=== PATIENT | male | born 1970 | race Caucasian/White ===

== ENCOUNTER 2018-01-05 09:15 | Emergency (ER) | payer OTHER ==
[~2018-01-05] VITALS: Ht 175.3 cm; Wt 85.7 kg
[~2018-01-05 09:15] MED LIST: ATIVAN1 MG PO; FLUOXETINE HCL20 M1 PO; GABAPENTIN100 MG PO; HYDROCODON-ACE1 EA14 PO; HYDROCODON-ACE1 EAC8 PO; IBUPROFEN800 MG PO; KLONOPIN2 MG PO; LORAZEPAM1 MG PO; MINIPRESS1 MG PO; MINIPRESS2 MG PO; NORCO 5-325 TA1 EACH PO; OMEPRAZOLE20 MG PO; PRILOSEC20 MG; TRAZODONE HCL50 MG PO; VICODIN 5-5001 EACH PO; ZYPREXA15 MG PO
[2018-01-05] MEDS ORDERED: LISINOPRIL10 MG PO (09:31)
[2018-01-05] MEDS ORDERED: NORCO 5-325 TA1 EACH PO (11:03)
== END 2018-01-05 11:27 | disposition home or self-care (01) ==
LOC: ED 09:15
DX: R11.2 Nausea with vomiting, unspecified (principal); E86.0 Dehydration; F11.23 Opioid dependence with withdrawal; I10 Essential (primary) hypertension; Z88.8 Allergy status to other drugs, medicaments and biological substances; Z88.0 Allergy status to penicillin; Z79.899 Other long term (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 therapy
CPT/HCPCS: 80053; 81001; 83605; 83690; 85025; 96361; 96374; 96375; 99284; J2405; J2550; J7030

== ENCOUNTER 2018-03-26 22:30 | Emergency (ER) | payer OTHER ==
[~2018-03-26] VITALS: Ht 175.3 cm; Wt 85.7 kg
--- OUTSIDE RECORDS SUMMARY | ~2018-03-26 | XMS | Clinical Summary ---
Demographics + + + | Address | [address] | | | [place] [address] | + + + | Preferred Language | Unknown | + + + | Marital Status | | + + + | Mosque Affiliation | Unknown | + + + | Race | Unknown | + + + | Ethnic Group | Unknown | + + + Author + + + | Author | [facility] | + + + | Organization | [facility] | + + + | Address | Unknown | + + + | Phone | Unavailable | + + + Support + + + + + | Name | Relationship | Address | Phone | + + + + + | Tomasa Browne | ECON | [address] | | | | [place], [place] | | | | | [address] | | + + + + + Care Team Providers + +------+ + | Care Lottery Clerk Name | Role | Phone | + +------+ + | Georgette Camp PA-C | PP | | + +------+ + Allergies + + + + + + | Active Allergy | Reactions | Severity | Noted | Comments | | | | | Date | | + + + + + + | Penicillins | Rash | Medium | 06/30/20 | | | | | | 14 | | + + + + + + Current Medications + + +--------+---------+------+------+-------+ | Prescription | Sig. | Disp. | Refills | Star | End | Statu | | | | | | t | Date | s | | | | | | Date | | | + + +--------+---------+------+------+-------+ | LORazepam (ATIVAN) | Take 0.5 tablets by | 12 | 0 | 12/3 | | Activ | | 1 MG tablet | mouth every 8 | tablet | | 1/20 | | e | | | (eight) hours as | | | 14 | | | | | needed for Anxiety. | | | | | | + + +--------+---------+------+------+-------+ Active Problems Not on file Social History + +-------+ +--------+------+ | Tobacco Use | Types | Packs/Day | Years | Date | | | | | Used | | + +-------+ +--------+------+ | Never Smoker | | | | | + +-------+ +--------+------+ + +---+---+---+ | Smokeless Tobacco: | | | | | Never Used | | | | + +---+---+---+ + + +---------+ + | Alcohol Use | Drinks/We | oz/Week | Comments | | | ek | | | + + +---------+ + | No | | | | + + +---------+ + + + + | Sex Assigned at | Date Recorded | | | | + + + | Not on file | | + + + Last Filed Vital Signs + + + + | Vital Sign | Reading | Time Taken | + + + + | Blood Pressure | 135/88 | 06/30/2014 7:02 PM PST | + + + + | Pulse | 70 | 06/30/2014 7:02 PM PST | + + + + | Temperature | 36.4 C (97.6 F) | 06/30/2014 7:02 PM PST | + + + + | Respiratory Rate | 18 | 06/30/2014 7:02 PM PST | + + + + | Oxygen Saturation | 100% | 06/30/2014 7:02 PM PST | + + + + | Inhaled Oxygen | - | - | | Concentration | | | + + + + | Weight | 86.2 kg (190 lb) | 06/30/2014 4:37 PM PST | + + + + | Height | 177.8 cm (5' 10") | 10/13/2009 2:06 PM PDT | + + + + | Body Mass Index | 27.26 | 06/30/2014 4:37 PM PST | + + + + Plan of Treatment Not on file Results Not on filefrom Last 3 Months Insurance +---------+--------+ +------+-------+---------+ | Payer | Benefi | Subscriber | Type | Phone | Address | | | t Plan | ID | | | | | | / | | | | | | | Group | | | | | +---------+--------+ +------+-------+---------+ | [place] | BLUE | [id number] | | | | | | CROSS | 3 | | | | | | BLUE | | | | | | | SHIELD | | | | | | | FEP | | | | | +---------+--------+ +------+-------+---------+ + +--------+ +--------+-------+ + | Guarantor Name | Accoun | Relation to | Date | Phone | Billing Address | | | t Type | Patient | of | | | | | | | | | | + +--------+ +--------+-------+ + | MARIE BROWNE | Person | Self | [birth year] | [address] | | | al/Fam | | 1971 | | [place] | | | [place] | | | | [phone] | + +--------+ +--------+-------+ +
--- OUTSIDE RECORDS SUMMARY | ~2018-03-26 | XMS | Clinical Summary ---
Demographics + + + | Address | [address] | | | [place] [address] | + + + | Home Phone | | + + + | Preferred Language | Unknown | + + + | Marital Status | | + + + | Presybeterian Affiliation | Unknown | + + + | Race | Unknown | + + + | Ethnic Group | Unknown | + + + Author + + + | Author | [facility] | | | and [place] | + + + | Organization | [facility] | | | and [place] [...] Team Providers + +------+ + | Care Life Skills Coordinator Volunteer Name | Role | Phone | + [...] | | | + + +--------+---------+------+------+-------+ | | Take 1 tablet by | | | | | Activ | | HYDROcodone-acetamin | mouth every 6 hours | | | | | e | | ophen (NORCO) 5-325 | as needed. | | | | | | | mg per tablet | | | | | | | + + +--------+---------+------+------+-------+ | GuaiFENesin | Take by mouth. | | | | | Activ | | (MUCINEX CHEST | | | | | | e | | CONGESTION CHILD PO) | | | | | | | + + +--------+---------+------+------+-------+ | fluticasone | 1 spray by Nasal | 16 g | 0 | 10/1 | | Activ | | (FLONASE) 50 | route 2 times daily. | | | 1/20 | | e | | mcg/nasal spray | | | | 15 | | | + + +--------+---------+------+------+-------+ Active Problems + + + | Problem [...] + | Blood Pressure | 130/90 | 04/10/20151221 PDT | + + + [...] Height | 177.8 cm (5' 10") | 04/10/20151221 PDT | + + + + | Body Mass Index | 31.42 | 04/10/20151221 PDT | + + + + Plan [...] Vaccine: Influenza | | | | | (#1) | 8 | | | + + + + + Results Not on filefrom Last 3 Months Insurance + +--------+ +--------+ +---------+ | Payer | Benefi | Subscriber | Type | Phone | Address | | | t Plan | ID | | | | | | / | | | | | | | Group | | | | | + +--------+ +--------+ +---------+ | [employer] | MODA | [id number] | Medica | [phone] | | MEDICAID HMO | HEALTH | | id | [id number] | | | | [place] | | | | | | | [place] | | | | | + +--------+ +--------+ +---------+ + +--------+ +--------+ + + | Guarantor Name | Accoun | Relation to | Date | Phone | Billing Address | | | t Type | Patient | of | | | | | | | | | | + +--------+ +--------+ + + | MARIE BROWNE | Person | Self | [birth year] | Home: | [address] | | | al/Fam | | 1971 | [phone] | [place] [address] | | | [place] | | | [phone] | | + +--------+ +--------+ + +
--- OUTSIDE RECORDS SUMMARY | ~2018-03-26 | XMS | Clinical Summary ---
Demographics + + + | Address | [address] | | | [place] [address] | + + + | Home Phone | | + + + | Preferred Language | Unknown | + + + | Marital Status | | + + + | Latter Day Affiliation | CHR | + + + [...] [place], [place] | | | | | [address] | | + + + + + Care Team Providers + +------+ + | Care Core Machine Operator Name | Role | Phone | + +------+ + | Jass Park DO | PP | | + +------+ + Source Comments DEISY is fully live on both [facility] Ambulatory and [facility] InPatient.[facility] Allergies No Known Allergies Current Medications + [...] | + + + + + | INFLUENZA VACCINE | | | | | (FLU SHOT) | 8 | | | + + [...] | PPO | +- | [address] [address] [place] | | SHIELD | OUT OF | x | | [address] | [place], [place] | | | [place] | | | | [address] | + +--------+ +------+ + + + [...] | | al/Fam | | 1971 | [phone] | [place] | | | [place] | | | [phone] | [phone] | + +--------+ +--------+ + +
--- OUTSIDE RECORDS SUMMARY | ~2018-03-26 | XMS | Clinical Summary ---
Demographics + + + | Address | [address] | | | [place] [address] | + + + | Home Phone | | + + + | Preferred Language | Unknown | + + + | Marital Status | | + + + | Methodist Affiliation | CHR | + + + [...] [place], [place] | | | | | [address] | | + + + + + Care Team Providers + +------+ + | Care Director Student Union Name | Role | Phone | + +------+ + | Jass Park DO | PP | | + +------+ + Source Comments DEISY is fully live on both [facility] and [facility] InPatient.[facility] Allergies No Known Allergies Current Medications + [...] | PPO | +- | [address] [address] [place] | | SHIELD | OUT OF | x | | [address] | [place], [place] | | | STATE | | | | [address] | + +--------+ +------+ + + + [...] | [place] | | | [phone] | [phone] | + +--------+ +--------+ + +
--- OUTSIDE RECORDS SUMMARY | ~2018-03-26 | XMS | Clinical Summary ---
Demographics + + + | Address | [address] | | | [place] [address] | + + + | Home Phone [...] Organization | [facility] | | | and [...] Team Providers + +------+ + | Care Tonnage Compilation Clerk Name | Role | Phone | [...] | [employer] | MODA | [id number] | Medica | [phone] | | | MEDICAID HMO | HEALTH [...] | 1971 | [phone] | [place] [address] | | | [place] | | | [phone] | | + +--------+ +--------+ + +
--- OUTSIDE RECORDS SUMMARY | ~2018-03-26 | XMS | Clinical Summary ---
Demographics + + + | Address | [address] | | | [place] [address] | + + + | Preferred Language | Unknown | + + + | Marital Status | | + + + | Confucianist Affiliation | Unknown | + + + | Race | Unknown | + + + | Ethnic Group | Unknown | + + + Author + + + | Author | [facility] | + + + | Organization | [facility] | + + + | Address | Unknown | + + + | Phone | Unavailable | + + + Support + + + + + | Name | Relationship | Address | Phone | + + + + + | Tomasa Browne | ECON | [address] | | | | [address], [place] | | | | | [address] | | + + + + + Care Team Providers + +------+ + | Care Lens Grinder And Polisher Name | Role | Phone | + [...] +---------+--------+ +------+-------+---------+ | [place] | BLUE | [id number] | | | | | | CROSS [...] | | [place] | | | | [phone] | + +--------+ +--------+-------+ +
[~2018-03-26 22:30] MED LIST changes: +CATAPRES0.1 MG PO; +LISINOPRIL10 MG PO
[2018-03-26] MEDS ORDERED: OXYCODONE-ACET1 EAC3 (22:45)
[2018-03-26] MEDS ORDERED: WELLBUTRIN XL300 MG PO (22:46)
== END 2018-03-27 00:13 | disposition home or self-care (01) ==
LOC: ED 22:30
DX: M54.5 Low back pain (principal); I10 Essential (primary) hypertension; F41.9 Anxiety disorder, unspecified; F17.200 Nicotine dependence, unspecified, uncomplicated; Z88.8 Allergy status to other drugs, medicaments and biological substances; Z88.0 Allergy status to penicillin; Z79.899 Other long term (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 therapy
CPT/HCPCS: 81001; 96372; 99283; J1885

== ENCOUNTER 2018-10-07 18:55 | Emergency (ER) | payer OTHER ==
[~2018-10-07] VITALS: Ht 177.8 cm; Wt 90.7 kg
[~2018-10-07 18:55] MED LIST changes: +OXYCODONE-ACET1 EAC3; +WELLBUTRIN XL300 MG PO
--- OUTSIDE RECORDS SUMMARY | 2018-10-07 18:58 | XMS ---
PreMana Notification: CECILIO CROSS Security Line Therapist Events No recent Security Events currently on file [place]IA MET [place] [facility] DEANDRE MCCRARY [facility] 02/03/2018-Current PHONE: [phone] [facility]: Health Service 07/21/2018-Current PHONE: [phone] [facility] Internal Medicine 09/24/2018-[facility] - [place] PHONE: [phone] [facility] Care 09/24/2018-[facility] - [place] PHONE: [phone] [facility] Care 07/21/2018-Current PHONE: [phone] Jasmine has no Care Guidelines for this patient. Care History Medical/Surgical 04/18/2018 [facility] - PATIENT CURRENTLY ON A PAIN CONTRACT WITH DR HERMANN MICHAELS. - PATIENT HAS CHRONIC NECK PAIN. - PATIENT RECENTLY TESTES POSITIVE FOR METHAMPHETAMINE USAGE. Care Recommendation: - USE EXTREME CAUTION IN GIVING NARCOTICS TO THIS PATIENT. - Avoid Discharge Narcotic prescriptions if at all possible. Please use clinical judgement. E.D. VISIT COUNT (12 MO.) [address] [place] [address]. TOTAL 5 NOTE: Visits indicate total known visits. ED/UCC VISIT TRACKING (12 MO.) 10/07/2018 18:55 [facility] [place] TYPE: Emergency COMPLAINT: - MEDICAL CLEARANCE 04/17/2018 09:27 [facility] [place] TYPE: Emergency COMPLAINT: - HEADACHE DIAGNOSES: - Other salvage determiner (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 therapy - Allergy status to penicillin - Allergy status to other drugs, medicaments and biological substances status - Headache - Essential (primary) hypertension - Nicotine dependence, unspecified, uncomplicated 03/26/2018 22:31 [facility] [place] TYPE: Emergency COMPLAINT: - LOW BACK PAIN,L LEG PAIN DIAGNOSES: - Nicotine dependence, unspecified, uncomplicated - Allergy status to other drugs, medicaments and biological substances status - Low back pain - Anxiety disorder, unspecified - Other intermediate (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 therapy - Allergy status to penicillin - Essential (primary) hypertension 01/31/2018 23:16 [facility] [place] TYPE: Emergency COMPLAINT: - POSS POSIONING DIAGNOSES: - Allergy status to penicillin - Essential (primary) hypertension - Allergy status to other drugs, medicaments and biological substances status - Other intermediate (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 therapy - Anxiety disorder, unspecified - Anxiety disorder, unspecified - Nicotine dependence, unspecified, uncomplicated - Encounter for observation for other suspected diseases and conditions ruled out 01/05/2018 09:16 [facility] [place] TYPE: Emergency COMPLAINT: - VOMITING DIAGNOSES: - Allergy status to penicillin - Allergy status to other drugs, medicaments and biological substances status - Opioid dependence with withdrawal - Essential (primary) hypertension - Other intermediate (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 therapy - Nausea with vomiting, unspecified - Dehydration INPATIENT VISIT TRACKING (12 MO.) No inpatient visits to display in this time frame [email or web address]
== END 2018-10-07 19:15 | disposition left against medical advice (07) ==
LOC: ED 18:55
DX: Z53.21 Procedure and treatment not carried out due to patient leaving prior to being seen by health care provider (principal)

== ENCOUNTER 2018-10-09 19:03 | Emergency (ER) | payer MEDICAID ==
[~2018-10-09] VITALS: Ht 177.8 cm; Wt 90.7 kg
--- OUTSIDE RECORDS SUMMARY | 2018-10-09 19:06 | XMS ---
PreManage Notification: CECILIO CROSS Security Radio Frequency Engineer Events 1 event(s) in the past 18 months Most recent security events: Elopement at [facility] 10/07/2018 18:55 - Other Details: PATIENT MARIUSZ- HAWA CREATED. CRITERIA MET - Group Notification - [facility] - Has Care Guidelines - PDMP - [facility] - 2 Visits in 30 Days CARE PROVIDERS DEANDRE MCCRARY [facility] 02/03/2018-Current PHONE: [phone] [facility]: Health Service 07/21/2018-Current PHONE: [phone] [facility] BALSAM Internal [facility] 09/24/2018-[facility] - PHONE: [phone] [facility] Primary Care 09/24/2018-[facility] - [place] PHONE: [phone] [facility] Primary Care 07/21/2018-Current PHONE: [phone] Jasmine has no Care Guidelines for this patient. Care History Medical/Surgical 10/08/2018 [facility] - [place] CASE MANAGEMENT REFERRAL MADE- PATIENT LWBS IN THE ED- DOES NOT HAVE A PCP. 04/18/2018 [facility] - PATIENT CURRENTLY ON A PAIN CONTRACT WITH DR HERMANN MICHAELS. - PATIENT HAS CHRONIC NECK PAIN. - PATIENT RECENTLY TESTES POSITIVE FOR METHAMPHETAMINE USAGE. Care Recommendation: - USE EXTREME CAUTION IN GIVING NARCOTICS TO THIS PATIENT. - Avoid Discharge Narcotic prescriptions if at all possible. Please use clinical judgement. E.D. VISIT COUNT (12 MO.) 6 [facility] TOTAL 6 NOTE: Visits indicate total known visits. ED/UCC VISIT TRACKING (12 MO.) 10/09/2018 19:03 [facility] [place] TYPE: Emergency COMPLAINT: - MEDICAL CLERANCE 10/07/2018 18:55 [facility] [place] TYPE: Emergency COMPLAINT: - MEDICAL CLEARANCE 04/17/2018 09:27 [facility] [place] TYPE: Emergency COMPLAINT: - HEADACHE DIAGNOSES: - Other intermediate card tender (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 therapy - Allergy status to [...] - Anxiety disorder, unspecified - Other intermediate card tender (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 therapy - Allergy status to penicillin - Essential (primary) hypertension 01/31/2018 23:16 [facility] [place] TYPE: Emergency COMPLAINT: - POSS POSIONING DIAGNOSES: - Allergy status to penicillin - Essential (primary) hypertension - Allergy status to other drugs, medicaments and biological substances status - Other intermediate card tender (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 therapy - Anxiety disorder, unspecified [...] - Essential (primary) hypertension - Other intermediate card tender (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 therapy - Nausea with vomiting, unspecified - Dehydration INPATIENT VISIT TRACKING (12 MO.) No inpatient visits to display in this time frame [id number]
== END 2018-10-09 21:43 | disposition home or self-care (01) ==
LOC: ED 19:03
DX: Z13.30 Encounter for screening examination for mental health and behavioral disorders, unspecified (principal); I10 Essential (primary) hypertension; F41.9 Anxiety disorder, unspecified; F17.200 Nicotine dependence, unspecified, uncomplicated; Z87.442 Personal history of urinary calculi; Z88.0 Allergy status to penicillin; Z88.8 Allergy status to other drugs, medicaments and biological substances; Z79.899 Other long term (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 therapy
CPT/HCPCS: 80053; 80176; 81001; 85025; 99284; G0480

== ENCOUNTER 2018-10-13 06:24 | Emergency (ER) | payer MEDICAID ==
[~2018-10-13] VITALS: Ht 177.8 cm; Wt 90.7 kg
--- OUTSIDE RECORDS SUMMARY | ~2018-10-13 | XMS | Clinical Summary ---
Demographics + + + | Address | [address] | | | [place] [address] | + + + | Home Phone | | + + + | Preferred Language | Unknown | + + + | Marital Status | | + + + | Latter-Day Affiliation | Unknown | + + + | Race | Unknown | + + + | Ethnic Group | Unknown | + + + Author + + + | Author | [facility] | | | and [place] | + + + | Organization | [facility] | | | and [place] | + + + | Address | Unknown | + + + | Phone | Unavailable | + + + Support + + +---------+ + | Name | Relationship | Address | Phone | + + +---------+ + | Reyna Esteban | ECON | Unknown | | + + +---------+ + Care Team Providers + +------+ + | Care Outreach Nurse Name | Role | Phone | + +------+ + | No, Physician | PP | Unavailable | + +------+ + Allergies + + + + + + | Active Allergy | Reactions | Severity | Noted | Comments | | | | | Date | | + + + + + + | Penicillins | | | 04/10/20 | | | | | | 15 | | + + + + + + Medications + + + +---------+------+------+-------+ | Medication | Sig | Dispensed | Refills | Star | End | Statu | | | | | | t | Date | s | | | | | | Date | | | + + + +---------+------+------+-------+ | | Take 1 tablet by | | 0 | | | Activ | | HYDROcodone-acetamin | mouth every 6 hours | | | | | e | | ophen (NORCO) 5-325 | as needed. | | | | | | | mg per tablet | | | | | | | + + + +---------+------+------+-------+ | GuaiFENesin | Take by mouth. | | 0 | | | Activ | | (MUCINEX CHEST | | | | | | e | | CONGESTION CHILD PO) | | | | | | | + + + +---------+------+------+-------+ | fluticasone | 1 spray by Nasal | 16 g | 0 | 10/1 | | Activ | | (FLONASE) 50 | route 2 times daily. | | | 1/20 | | e | | mcg/nasal spray | | | | 15 | | | + + + +---------+------+------+-------+ Active Problems + + + | Problem | Noted Date | + + + | NECK PAIN | | + + + | SHOULDER PAIN | | + + + | CERVICAL RADICULOPATHY | | + + + Social History + +-------+ +--------+------+ | Tobacco Use | Types | Packs/Day | Years | Date | | | | | Used | | + +-------+ +--------+------+ | Never Smoker | | | 5 | | + +-------+ +--------+------+ + +------+---+---+ | Smokeless Tobacco: | Chew | | | | Current User | | | | + +------+---+---+ + + +---------+ + | Alcohol Use | Drinks/We | oz/Week | Comments | | | ek | | | + + +---------+ + | Yes | 0 | 0.0 | occ | | | Standard | | | | | drinks or | | | | | | | | | | equivalen | | | | | t | | | + + +---------+ + + + + | Sex Assigned at | Date Recorded | | | | + + + | Not on file | | + + + + + + + | Job Start Date | Occupation | Industry | + + + + | Not on file | Not on file | Not on file | + + + + + + + + | Travel History | Travel Start | Travel End | + + + + + + | No recent travel history available. | + + Last Filed Vital Signs + + + + | Vital Sign | Reading | Time Taken | + + + + | Blood Pressure | 130/90 | 04/10/2015 1222 PDT | + + + + | Pulse | 58 | 04/10/20151221 PDT | + + + + | Temperature | 36.3 C (97.3 F) | 04/10/20151221 PDT | + + + + | Respiratory Rate | 20 | 04/10/20151221 PDT | + + + + | Oxygen Saturation | 100% | 04/10/20151221 PDT | + + + + | Inhaled Oxygen | - | - | | Concentration | | | + + + + | Weight | 99.3 kg (219 lb) | 04/10/20151221 PDT | + + + + | Height | 177.8 cm (5' 10") | 04/10/2015 1222 PDT | + + + + | Body Mass Index | 31.42 | 04/10/20152 PDT | + + + + Plan of Treatment + + + + + | Health Maintenance | Due Date | Last Done | Comments | + + + + + | Vaccine: | | | | | Dtap/Tdap/Td (1 - | 9 | | | | Tdap) | | | | + + + + + | Vaccine: Influenza | | | | | (Season Ended) | 9 | | | + + + + + Results Not on filefrom Last 3 Months Insurance + +--------+ +--------+ +---------+--------+ | Payer | Benefi | Subscriber | Effect | Phone | Address | Type | | | t Plan | ID | [place] | | | | | | / | | Dates | | | | | | Group | | | | | | + +--------+ +--------+ +---------+--------+ | [employer] | MODA | [id number] | 04/10/ | [phone] | | Medica | | MEDICAID HMO | HEALTH | | 2015-P | 1 | | id | | | MDCD | | [place] | | | | | | [place] | | | | | | + +--------+ +--------+ +---------+--------+ + +--------+ +--------+ + + | Guarantor Name | Accoun | Relation to | Date | Phone | Billing Address | | | t Type | Patient | of | | | | | | | | | | + +--------+ +--------+ + + | Marie Browne | Person | Self | [birth year] | [address] | | | kris/Lei | | 1971 | [phone] | [place] [address] | | | [place] | | | 7 (Home) | | + +--------+ +--------+ + + Advance Directives Patient has advance care planning documents on file. For more information, please contact:[facility] [place] [address]
--- OUTSIDE RECORDS SUMMARY | ~2018-10-13 | XMS | Clinical Summary ---
Demographics + + + | Address | [address] [place] [address] | | | [place] [address] | + + + | Home Phone | | + + + | Preferred Language | Unknown | + + + | Marital Status | | + + + | Religion Affiliation | CHR | + + + | Race | White | + + + | Ethnic Group | Not or | + + + Author + + + | Author | [facility] | + + + | Organization | [facility] | + + + | Address | Unknown | + + + | Phone | Unavailable | + + + Support + + + + + | Name | Relationship | Address | Phone | + + + + + | NAOMI BROWNE | ECON | [address] | | | | [address], [place] | | | | | [address] | | + + + + + Care Team Providers + +------+ + | Care Purchasing Director Name | Role | Phone | + +------+ + | Jass Park DO | PP | | + +------+ + Source Comments DEISY is fully live on both [facility] and [facility] InPatient.[facility] Allergies No Known Allergies Current Medications + + + +---------+------+------+-------+ | Prescription | Sig. | Disp. | Refills | Star | End | Statu | | | | | | t | Date | s | | | | | | Date | | | + + + +---------+------+------+-------+ | HYDROCODONE | Take by mouth as | | | 02/0 | | Activ | | BIT/ACETAMINOPHEN | needed. | | | 3/20 | | e | | (VICODIN ORAL) | | | | 11 | | | + + + +---------+------+------+-------+ | ibuprofen 800 mg | Take 800 mg by mouth | | | | | Activ | | Oral Tablet | every six hours as | | | | | e | | | needed. | | | | | | + + + +---------+------+------+-------+ | celecoxib | Take by mouth. By | 12 Cap | 0 | 03/2 | | Activ | | (CELEBREX) 400 mg | mouth, take one | | | 8/20 | | e | | Oral | capsule the night | | | 11 | | | | CapsuleIndications: | before surgery and | | | | | | | Other specified | one the morning of | | | | | | | pre-operative | surgery. Thereafter | | | | | | | examination | take one capsule | | | | | | | | twice daily. | | | | | | + + + +---------+------+------+-------+ | CALCIUM CARBONATE | Take by mouth. | | | | | Activ | | (TUMS 500 ORAL) | | | | | | e | + + + +---------+------+------+-------+ | oxyCODONE, | Take by mouth. Take | 60 Tab | 0 | 05/1 | | Activ | | immediate release, 5 | one to two tablets | | | 8/20 | | e | | mg Oral | by mouth every 4-6 | | | 11 | | | | TabletIndications: | hours for pain when | | | | | | | Other specified | needed. | | | | | | | pre-operative | | | | | | | | examination | | | | | | | + + + +---------+------+------+-------+ Active Problems + + + | Problem | Noted Date | + + + | Carpal tunnel syndrome | 10/16/2010 | + + + | Shoulder pain | 09/25/2010 | + + + Social History + [...] + +---------+ + | Yes | | 0.0 | rare use | + + +---------+ + + + + | Sex Assigned at | Date Recorded | | | | + + + | Not on file | | + + + Last Filed Vital Signs + + + + | Vital Sign | Reading | Time Taken | + + + + | Blood Pressure | 108/81 | 10/05/2010 2:15 PM PDT | + + + + | Pulse | 65 | 10/05/2010 2:15 PM PDT | + + + + | Temperature | 36.4 C (97.5 F) | 10/05/2010 12:30 PM PDT | + + + + | Respiratory Rate | 14 | 10/05/2010 2:15 PM PDT | + + + + | Oxygen Saturation | 96% | 10/05/2010 2:15 PM PDT | + + + + | Inhaled Oxygen | - | - | | Concentration | | | + + + + | Weight | 81.6 kg (180 lb) | 10/05/2010 7:43 AM PDT | + + + + | Height | 175.3 cm (5' 9") | 10/05/2010 7:43 AM PDT | + + + + | Body Mass Index | 26.58 | 10/05/2010 7:43 AM PDT | + + + + Plan of Treatment + + + + + | Health Maintenance | Due Date | Last Done | Comments | + + + + + | Influenza (Flu) | | | | | vaccination (#1) | 8 | | | + + + + + Results Not on filefrom Last 3 Months Insurance + +--------+ +------+ + + | Payer | Benefi | Subscriber | Type | Phone | Address | | | t Plan | ID | | | | | | / | | | | | | | Group | | | | | + +--------+ +------+ + + | BLUE CROSS BLUE | BCBS | [id number] | PPO | +- | [address] [address] [place] | | SHIELD | OUT OF | x | | [phone] | [place], [place] | | | [place] | | | | [address] | + +--------+ +------+ + + + +--------+ +--------+ + + | Guarantor Name | Accoun | Relation to | Date | Phone | Billing Address | | | t Type | Patient | of | | | | | | | | | | + +--------+ +--------+ + + | MARIE BROWNE | Person | Self | [birth year] | Home: | [address] | | | al/Fam | | 1971 | [phone] | [place], [place] | | | nicole | | | [phone] | + +--------+ +--------+ + +
--- OUTSIDE RECORDS SUMMARY | ~2018-10-13 | XMS | Clinical Summary ---
Demographics + + + | Address | [address] | | | [place] [address] | + + + | Preferred Language [...] | + + + | Organization | [facility] | + + + | Address | Unknown | + + + | Phone | Unavailable | + + + Support + + + + + | Name | Relationship | Address | Phone | + + + + + | Tomasa Browne | ECON | [address] | | | | [address], [place] | | | | | [address] | | + + + + + Care Team Providers + +------+ + | Care Executive Director Of Nursing Name | Role | Phone | + [...] +---------+--------+ +------+-------+---------+ | [place] | BLUE | [id number] | | | | | | CROSS [...] | | [place] | | | | [phone] | + +--------+ +--------+-------+ +
--- OUTSIDE RECORDS SUMMARY | ~2018-10-13 | XMS | Clinical Summary ---
Demographics + + + | Address | [address] | | | [place] [address] | + + + | Preferred Language | Unknown | + + + | Marital Status | | + + + | Adventist Affiliation | Unknown | + + + | Race | Unknown | + + + | Ethnic Group | Unknown | + + + Author + + + | Author | [facility] | + + + | Organization | [facility] | + + + | Address | Unknown | + + + | Phone | Unavailable | + + + Support + + + + + | Name | Relationship | Address | Phone | + + + + + | Tomasa Browne | ECON | [address] | | | | [address], [place] | | | | | [address] | | + + + + + Care Team Providers + +------+ + | Care Sales And Leasing Consultant Name | Role | Phone | + [...] +---------+--------+ +------+-------+---------+ | [place] | BLUE | [id number] | | | | | | CROSS [...] | | [place] | | | | [phone] | + +--------+ +--------+-------+ +
--- OUTSIDE RECORDS SUMMARY | ~2018-10-13 | XMS | Clinical Summary ---
Demographics + + + | Address | [address] | | | [place] [address] | + + + | Home Phone | | + + + | Preferred Language | Unknown | + + + | Marital Status | | + + + | Baptism Affiliation | Unknown | + + + | Race | Unknown | + + + | Ethnic Group | Unknown | + + + Author + + + | Author | [facility] | | | and [place] | + + + | Organization | [facility] | | | and [...] Team Providers + +------+ + | Care Lpn Medical Assistant Name | Role | Phone | + [...] | [employer] | MODA | [id number] | 04/10/ | [phone] | | Medica | | MEDICAID HMO [...] | 1971 | [phone] | [place] [address] | | | [place] | | | 7 (Home) | | + +--------+ +--------+ + + Advance Directives Patient has advance care planning documents on file. For more information, please contact:[facility] and [place] [address]
--- OUTSIDE RECORDS SUMMARY | ~2018-10-13 | XMS | Clinical Summary ---
Demographics + + + | Address | [address] [place] [address] | | | [place] [address] | + + + | Home Phone | | + + + | Preferred Language | Unknown | + + + | Marital Status | | + + + | Voodoo Affiliation | CHR | + + + [...] [place], [place] | | | | | [address] | | + + + + + Care Team Providers + +------+ + | Care Front Desk Name | Role | Phone | + +------+ + | Jass Park DO | PP | | + +------+ + Source Comments DEISY is fully live on both [facility] Ambulatory and [facility] InPatient.[facility] Allergies No Known Allergies Current [...] | PPO | +- | [address] [address] [place] | | SHIELD | OUT OF | x | | [phone] | [place], [place] | | | STATE | | | | [address] | + +--------+ +------+ + + + [...] al/Fam | | 1971 | [phone] | [place], [place] | | | nicole | | | [phone] | + +--------+ +--------+ + +
--- OUTSIDE RECORDS SUMMARY | 2018-10-13 06:28 | XMS ---
PreManage Notification: CECILIO CROSS Security Welt Insole Channeler Events 1 event(s) in the past 18 months Most recent security events: Elopement at [facility] 10/07/2018 18:55 - Other Details: PATIENT MARIUSZ- HAWA CREATED. CRITERIA MET - Group Notification - [facility] - Has Care Guidelines - PDMP - [facility] - 2 Visits in 30 Days CARE PROVIDERS DEANDRE MCCRARY [facility] 02/03/2018-Current PHONE: [phone] [facility]: Health Service 07/21/2018-Current PHONE: [phone] K[facility]E RIVIERA Internal [facility] 09/24/2018-[facility] - PHONE: [phone] [facility] Primary Care 09/24/2018-[facility] - [place] PHONE: [phone] [facility] Primary Care 07/21/2018-Current PHONE: [phone] Jasmine has no Care Guidelines for this patient. Care History Medical/Surgical 10/08/2018 [facility] - [place] CASE MANAGEMENT REFERRAL MADE- PATIENT LWBS IN THE ED- DOES NOT HAVE A PCP. 04/18/2018 [facility] - PATIENT CURRENTLY ON A PAIN CONTRACT WITH DR HERMANN MICHAELS. - PATIENT HAS CHRONIC NECK PAIN. - PATIENT RECENTLY TESTES POSITIVE FOR METHAMPHETAMINE USAGE. Care Recommendation: - USE EXTREME CAUTION IN GIVING NARCOTICS TO THIS PATIENT. - Avoid Discharge Narcotic prescriptions if at all possible. Please use clinical judgement. E.D. VISIT COUNT (12 MO.) [address] [facility] TOTAL 7 NOTE: Visits indicate total known visits. ED/UCC VISIT TRACKING (12 MO.) 10/13/2018 06:25 [facility] [place] TYPE: Emergency COMPLAINT: - DENTAL PAIN 10/09/2018 19:03 [facility] [place] TYPE: Emergency COMPLAINT: - MEDICAL CLERANCE DIAGNOSES: - Anxiety disorder, unspecified - Nicotine dependence, unspecified, uncomplicated - Major depressive disorder, single episode, unspecified - Allergy status to other drugs, medicaments and biological substances status - Essential (primary) hypertension - Allergy status to penicillin - ENCNTR SCREEN EXAM FOR MENTAL HLTH AND BEHAVRL DIS - Other final application reviewer (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 therapy - Personal history of urinary calculi 10/07/2018 18:55 [facility] [place] TYPE: Emergency COMPLAINT: - MEDICAL CLEARANCE DIAGNOSES: - Procedure and treatment not carried out due to patient leaving prior to being seen by health care provider 04/17/2018 09:27 [facility] [place] TYPE: Emergency COMPLAINT: - HEADACHE DIAGNOSES: - Other final application reviewer (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 therapy - Allergy status to [...] pain - Anxiety disorder, unspecified - Other final application reviewer (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 therapy - Allergy status to penicillin - Essential (primary) hypertension 01/31/2018 23:16 [facility] [place] TYPE: Emergency COMPLAINT: - POSS POSIONING DIAGNOSES: - Allergy status to penicillin - Essential (primary) hypertension - Allergy status to other drugs, medicaments and biological substances status - Other half-way (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 therapy - Anxiety disorder, unspecified [...] withdrawal - Essential (primary) hypertension - Other final application reviewer (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 therapy - Nausea with vomiting, unspecified - Dehydration INPATIENT VISIT TRACKING (12 MO.) No inpatient visits to display in this time frame [id number]
[2018-10-13] MEDS ORDERED: CEPHALEXIN500 MG PO (06:52)
[2018-10-13] MEDS ORDERED: AMOXICILLIN500 MG PO (20:17)
[2018-10-13] MEDS ORDERED: TRAMADOL HCL50 MG PO (20:17)
== END 2018-10-13 06:57 | disposition home or self-care (01) ==
LOC: ED 06:24
DX: K08.89 Other specified disorders of teeth and supporting structures (principal); I10 Essential (primary) hypertension; F17.200 Nicotine dependence, unspecified, uncomplicated; Z88.0 Allergy status to penicillin; Z88.8 Allergy status to other drugs, medicaments and biological substances; Z79.899 Other long term (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 therapy
CPT/HCPCS: 99282

== ENCOUNTER 2018-10-13 19:40 | Emergency (ER) | payer MEDICAID ==
[~2018-10-13] VITALS: Ht 177.8 cm; Wt 90.7 kg
--- OUTSIDE RECORDS SUMMARY | ~2018-10-13 | XMS | Clinical Summary ---
Demographics + + + | Address | [address] | | | [place] [address] | + + + | Preferred Language | Unknown | + + + | Marital Status | | + + + | Hindu Affiliation | Unknown | + + + | Race | Unknown | + + + | Ethnic Group | Unknown | + + + Author + + + | Author | [facility] | + + + | Organization | [facility] | + + + | Address | Unknown | + + + | Phone | Unavailable | + + + Support + + + + + | Name | Relationship | Address | Phone | + + + + + | Tomasa Browne | ECON | [address] | | | | [address], [place] | | | | | [address] | | + + + + + Care Team Providers + +------+ + | Care Overcoil Stepper Name | Role | Phone | + +------+ + | Georgette Camp PA-C | PP | Unavailable | + +------+ + Allergies + + [...] +---------+--------+ +------+-------+---------+ | [place] | BLUE | [id number] | | | | | | CROSS [...] | al/Fam | | 1971 | | [place] | | | nicole | | | | [phone] | + +--------+ +--------+-------+ +
--- OUTSIDE RECORDS SUMMARY | ~2018-10-13 | XMS | Clinical Summary ---
Demographics + + + | Address | [address] | | | [place] [address] | + + + | Preferred Language | Unknown | + + + | Marital Status | | + + + | Denominational Affiliation | Unknown | + + + | Race | Unknown | + + + | Ethnic Group | Unknown | + + + Author + + + | Author | [facility] | + + + | Organization | [facility] | + + + | Address | Unknown | + + + | Phone | Unavailable | + + + Support + + + + + | Name | Relationship | Address | Phone | + + + + + | Tomasa Browne | ECON | [address] | | | | [place], [place] | | | | | [address] | | + + + + + Care Team Providers + +------+ + | Care Correctional Cook Name | Role | Phone | + [...] +---------+--------+ +------+-------+---------+ | [place] | BLUE | [id number] | | | | | | CROSS [...] | | [place] | | | | [phone] | + +--------+ +--------+-------+ +
--- OUTSIDE RECORDS SUMMARY | ~2018-10-13 | XMS | Clinical Summary ---
Demographics + + + | Address | [address] | | | [place] [address] | + + + | Home Phone | | + + + | Preferred Language | Unknown | + + + | Marital Status | | + + + | Zoroastrian Affiliation | Unknown | + + + | Race | Unknown | + + + | Ethnic Group | Unknown | + + + Author + + + | Author | [facility] | | | and [place] | + + + | Organization | [facility] | | | and [place] [...] Team Providers + +------+ + | Care Judicial Law Clerk Name | Role | Phone | [...] | [employer] | MODA | [id number] | 04/10/ | [phone] | | Medica | | MEDICAID HMO [...] | 1971 | [phone] | [place] [address] | | | [place] | | | 7 (Home) | | + +--------+ +--------+ + + Advance Directives Patient has advance care planning documents on file. For more information, please contact:[facility] [place] [address]
--- OUTSIDE RECORDS SUMMARY | ~2018-10-13 | XMS | Clinical Summary ---
Demographics + + + | Address | [address] | | | [place] [address] | + + + | Home Phone | | + + + | Preferred Language | Unknown | + + + | Marital Status | | + + + | Sikhism Affiliation | Unknown | + + + | Race | Unknown | + + + | Ethnic Group | Unknown | + + + Author + + + | Author | [facility] | | | and [place] | + + + | Organization | [facility] | | | and [place] | [...] Team Providers + +------+ + | Care Mattress Stripper Name | Role | Phone | + [...] | [employer] | MODA | [id number] | 04/10/ | [phone] | | Medica | | MEDICAID HMO [...] | 1971 | [phone] | [place] [address] | | | [place] | | | 7 (Home) | | + +--------+ +--------+ + + Advance Directives Patient has advance care planning documents on file. For more information, please contact:[facility] [place] [address]
[~2018-10-13 19:40] MED LIST changes: +CEPHALEXIN500 MG PO
--- OUTSIDE RECORDS SUMMARY | 2018-10-13 19:42 | XMS ---
PreManage Notification: CECILIO CROSS Security Forest Products Gatherer Events 1 event(s) in the past 18 months Most recent security events: Elopement at [facility] 10/07/2018 18:55 - Other Details: PATIENT MEMO SHAIKH CREATED. CRITERIA MET - Group Notification - 6 ED Visits in 6 Months - [facility] - Has Care Guidelines - PDMP - [facility] - 2 Visits in 30 Days CARE PROVIDERS DEANDRE MCCRARY [facility] 02/03/2018-Current PHONE: [phone] [facility]: Health Service 07/21/2018-Current PHONE: [phone] [facility] Internal Medicine 09/24/2018-[facility] - DIVISION PHONE: [phone] BRENT RAMOS Primary [facility] PHONE: Unknown [facility] Primary [facility] PHONE: Unknown [facility] Primary Care 09/24/2018-[facility] - DIVISION PHONE: [phone] [facility] Primary Care 07/21/2018-Current PHONE: [phone] Guidelines Source: Jenna Garcia Guidelines Date: 10/13/2018 Care Coordination: Currently engaged in mental health services with [facility].\T\nbsp; [facility]T\nbsp; [phone]. Care History Medical/Surgical 10/08/2018 [facility] MANAGEMENT REFERRAL MADE- PATIENT LWBS IN THE ED- DOES NOT HAVE A PCP. 04/18/2018 [facility] - PATIENT CURRENTLY ON A PAIN CONTRACT WITH DR HERMANN MICHAELS. - PATIENT HAS CHRONIC NECK PAIN. - PATIENT RECENTLY TESTES POSITIVE FOR METHAMPHETAMINE USAGE. Care Recommendation: - USE EXTREME CAUTION IN GIVING NARCOTICS TO THIS PATIENT. - Avoid Discharge Narcotic prescriptions if at all possible. Please use clinical judgement. E.D. VISIT COUNT (12 MO.) [address] Fabrice Baca TOTAL 9 NOTE: Visits indicate total known visits. ED/UCC VISIT TRACKING (12 MO.) [facility]2018 [facility] COMPLAINT: - POSS MEDICATION REACTION 10/13/2018 13:46 [facility] [place] TYPE: Emergency DIAGNOSES: - Essential (primary) hypertension - Other specified disorders of teeth and supporting structures - TOOTH PAIN 10/13/2018 06:25 [facility] [place] TYPE: Emergency [...] MENTAL HLTH AND BEHAVRL DIS - Other nursing home (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 therapy - Personal history of urinary calculi 10/07/2018 18:55 [facility] [place] TYPE: Emergency COMPLAINT: - MEDICAL CLEARANCE DIAGNOSES: - Procedure and treatment not carried out due to patient leaving prior to being seen by health care provider 04/17/2018 09:27 [facility] [place] TYPE: Emergency COMPLAINT: - HEADACHE DIAGNOSES: - Other nursing home (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 therapy - Allergy status to [...] pain - Anxiety disorder, unspecified - Other nursing home (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 therapy - Allergy status to penicillin - Essential (primary) hypertension 01/31/2018 23:16 [facility] [place] TYPE: Emergency COMPLAINT: - POSS POSIONING DIAGNOSES: - Allergy status to penicillin - Essential (primary) hypertension - Allergy status to other drugs, medicaments and biological substances status - Other internet marketing specialist (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 therapy - Anxiety disorder, unspecified [...] withdrawal - Essential (primary) hypertension - Other nursing home (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 therapy - Nausea with vomiting, unspecified - Dehydration INPATIENT VISIT TRACKING (12 MO.) No inpatient visits to display in this time frame [id number]
[2018-10-13] MEDS ORDERED: AMOXICILLIN500 MG PO (20:17)
[2018-10-13] MEDS ORDERED: TRAMADOL HCL50 MG PO (20:17)
== END 2018-10-13 20:22 | disposition home or self-care (01) ==
LOC: ED 19:40
DX: K08.89 Other specified disorders of teeth and supporting structures (principal); F41.9 Anxiety disorder, unspecified; I10 Essential (primary) hypertension; F17.200 Nicotine dependence, unspecified, uncomplicated; Z88.8 Allergy status to other drugs, medicaments and biological substances; Z79.899 Other long term (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 therapy
CPT/HCPCS: 99282

== ENCOUNTER 2018-11-28 22:29 | Emergency (ER) | payer MEDICAID ==
[~2018-11-28] VITALS: Ht 177.8 cm; Wt 90.7 kg
--- OUTSIDE RECORDS SUMMARY | ~2018-11-28 | XMS | Clinical Summary ---
Demographics + + + | Address | [address] | | | [place] [address] | + + + | Preferred Language | Unknown | + + + | Marital Status | | + + + | Sabianist Affiliation | Unknown | + + + | Race | Unknown | + + + | Ethnic Group | Unknown | + + + Author + + + | Author | [facility] | + + + | Organization | [facility] | + + + | Address | Unknown | + + + | Phone | Unavailable | + + + Support + + + + + | Name | Relationship | Address | Phone | + + + + + | Tomasa Browne | ECON | [address] | | | | [address], [place] | | | | | [address] | | + + + + + Care Team Providers + +------+ + | Care Layer Up Name | Role | Phone | + [...] +---------+--------+ +------+-------+---------+ | [place] | BLUE | [id number] | | | | | | CROSS [...] | | [place] | | | | [phone] | + +--------+ +--------+-------+ +
--- OUTSIDE RECORDS SUMMARY | ~2018-11-28 | XMS | Clinical Summary ---
Demographics + + + | Address | [address] | | | [place] [address] | + + + | Preferred Language | Unknown | + + + | Marital Status | | + + + | Buddhist Affiliation | Unknown | + + + | Race | Unknown | + + + | Ethnic Group | Unknown | + + + Author + + + | Author | [facility] | + + + | Organization | [facility] | + + + | Address | Unknown | + + + | Phone | Unavailable | + + + Support + + + + + | Name | Relationship | Address | Phone | + + + + + | Tomasa Browne | ECON | [address] | | | | [address], [place] | | | | | [address] | | + + + + + Care Team Providers + +------+ + | Care Real Estate Site Analyst Name | Role | Phone | + [...] +---------+--------+ +------+-------+---------+ | [place] | BLUE | [id number] | | | | | | CROSS [...] | | [place] | | | | [phone] | + +--------+ +--------+-------+ +
--- OUTSIDE RECORDS SUMMARY | ~2018-11-28 | XMS | Clinical Summary ---
Demographics + + + | Address | [address] | | | [place] [address] | + + + | Home Phone | | + + + | Preferred Language | Unknown | + + + | Marital Status | | + + + | Pentecostalism Affiliation | Unknown | + + + | Race | Unknown | + + + | Ethnic Group | Unknown | + + + Author + + + | Author | [facility] | | | and [place] | + + + | Organization | [facility] | | | and [place] | + + + | Address | Unknown | + + + | Phone | Unavailable | + + + Support + + +---------+ + | Name | Relationship | Address | Phone | + + +---------+ + | Renya Esteban | ECON | Unknown | | + + +---------+ + Care Team Providers + +------+ + | Care Med Aide Name | Role | Phone | + [...] | [employer] | MODA | [id number] | 04/10/ | [phone] | | Med[employer] | | MEDICAID HMO [...] | 1971 | [phone] | [place] [address] | | | nicole | | | 7 (Home) | | + +--------+ +--------+ + + Advance Directives Patient has advance care planning documents on file. For more information, please contact:[facility] [place] [address]
--- OUTSIDE RECORDS SUMMARY | ~2018-11-28 | XMS | Clinical Summary ---
Demographics + + + | Address | [address] | | | [place] [address] | + + + | Home Phone | | + + + | Preferred Language | Unknown | + + + | Marital Status | | + + + | Synagogue Affiliation | Unknown | + + + | Race | Unknown | + + + | Ethnic Group | Unknown | + + + Author + + + | Author | [facility]ated [facility] | | | and [place] | + + + | Organization | [facility] | | | and [...] Team Providers + +------+ + | Care Transportation Lead Name | Role | Phone | [...] | [employer] | MODA | [id number] | 04/10/ | [phone] | | Medica | | MEDICAID HMO [...] | 1971 | [phone] | [place] [address] | | | nicole | | | 7 (Home) | | + +--------+ +--------+ + + Advance Directives Patient has advance care planning documents on file. For more information, please contact:[facility] and [facility] [place] [address]
[~2018-11-28 22:29] MED LIST changes: +AMOXICILLIN500 MG PO; +TRAMADOL HCL50 MG PO
--- OUTSIDE RECORDS SUMMARY | 2018-11-28 22:32 | XMS ---
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 CRITERIA MET - Group Notification - 6 ED Visits in 6 Months - [facility] - Has Care Guidelines - PDMP CARE PROVIDERS DEANDRE MCCRARY [facility] 02/03/2018-Current PHONE: [phone] [facility] 07/21/2018-Current PHONE: [phone] [facility] Internal Medicine 09/24/2018-[facility] [place] PHONE: [phone] [facility] Primary Care Current [facility] PHONE: Unknown [facility] Current [place] PHONE: Unknown [facility] Primary Care 09/24/2018-[facility] [address] PHONE: [phone] [facility] Primary Care 07/21/2018-Current PHONE: [phone] Guidelines [facility]: [facility] Guidelines Date: 10/13/2018 Care Coordination: Currently engaged in mental health services with [facility].\T\nbsp; [facility].\T\nbsp; [phone]. Care History Medical/Surgical 10/08/2018 [facility] - [place] CASE MANAGEMENT REFERRAL MADE- PATIENT LWBS IN THE ED- DOES NOT HAVE A PCP. 04/18/2018 [facility] - PATIENT CURRENTLY ON A PAIN CONTRACT WITH DR HERMANN MICHAELS. - PATIENT HAS CHRONIC NECK PAIN. - PATIENT RECENTLY TESTES POSITIVE FOR METHAMPHETAMINE USAGE. Care Recommendation: - USE EXTREME CAUTION IN GIVING NARCOTICS TO THIS PATIENT. - Avoid Discharge Narcotic prescriptions if at all possible. Please use clinical judgement. E.D. VISIT COUNT (12 MO.) 1 [facility] 1 [place] [facility] NOTE: Visits indicate total known visits. ED/UCC VISIT TRACKING (12 MO.) 11/28/2018 22:[facility] [place] [facility] Emergency COMPLAINT: - MULLTIPLE COMPAINTS 11/24/2018 10:49 [facility] [place] TYPE: Psychiatric Emergency DIAGNOSES: - Delusional disorders - SI - Other stimulant abuse, uncomplicated 10/13/2018 19:40 [facility] [place] TYPE: Emergency COMPLAINT: - POSS MEDICATION REACTION DIAGNOSES: - Other penitentiary (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 therapy - Other specified disorders of teeth and supporting structures - Essential (primary) hypertension - Allergy status to other drugs, medicaments and biological substances status - Nicotine dependence, unspecified, uncomplicated - Anxiety disorder, unspecified 10/13/2018 13:46 [facility] [place] TYPE: Emergency DIAGNOSES: - Essential (primary) hypertension - Other specified disorders of teeth and supporting structures - TOOTH PAIN 10/13/2018 06:25 [facility] [place] TYPE: Emergency COMPLAINT: - DENTAL PAIN DIAGNOSES: - Allergy status to penicillin - Allergy status to other drugs, medicaments and biological substances status - Other penitentiary (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 therapy - Nicotine dependence, unspecified, uncomplicated - Essential (primary) hypertension - Other specified disorders of teeth and supporting structures 10/09/2018 19:03 [facility] [place] TYPE: Emergency COMPLAINT: - MEDICAL CLERANCE DIAGNOSES: - Anxiety disorder, unspecified - Nicotine dependence, unspecified, uncomplicated - Major depressive disorder, single episode, unspecified - Allergy status to other drugs, medicaments and biological substances status - Essential (primary) hypertension - Allergy status to penicillin - ENCNTR SCREEN EXAM FOR MENTAL HLTH AND BEHAVRL DIS - Other emt intermediate (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 therapy - Personal history of urinary calculi 10/07/2018 18:55 [facility] [place] TYPE: Emergency COMPLAINT: - MEDICAL CLEARANCE DIAGNOSES: - Procedure and treatment not carried out due to patient leaving prior to being seen by health care provider 04/17/2018 09:27 [facility] [place] TYPE: Emergency COMPLAINT: - HEADACHE DIAGNOSES: - Other penitentiary (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 therapy - Allergy status to penicillin - Allergy status to other drugs, medicaments and biological substances status - Headache - Essential (primary) hypertension - Nicotine dependence, unspecified, uncomplicated 03/26/2018 22:31 [facility] [place] TYPE: Emergency COMPLAINT: - LOW BACK PAIN,L LEG PAIN DIAGNOSES: - Nicotine dependence, unspecified, uncomplicated - Allergy status to other drugs, medicaments and biological substances status - Low back pain - Anxiety disorder, unspecified - Other penitentiary (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 therapy - Allergy status to penicillin - Essential (primary) hypertension 01/31/2018 23:16 [facility] [place] TYPE: Emergency COMPLAINT: - POSS POSIONING DIAGNOSES: - Allergy status to penicillin - Essential (primary) hypertension - Allergy status to other drugs, medicaments and biological substances status - Other emt intermediate (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 therapy - Anxiety disorder, [...] withdrawal - Essential (primary) hypertension - Other penitentiary (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 therapy - Nausea with vomiting, unspecified - Dehydration INPATIENT VISIT TRACKING (12 MO.) No inpatient visits to display in this time frame [email or web address]
[2018-11-29] MEDS ORDERED: TRAMADOL HCL50 MG PO (20:18)
== END 2018-11-29 00:43 | disposition home or self-care (01) ==
LOC: ED 22:29
DX: S90.822A Blister (nonthermal), left foot, initial encounter (principal); S90.821A Blister (nonthermal), right foot, initial encounter; I10 Essential (primary) hypertension; Z87.442 Personal history of urinary calculi; Z87.891 Personal history of nicotine dependence; Z90.49 Acquired absence of other specified parts of digestive tract; Z88.1 Allergy status to other antibiotic agents; Z88.8 Allergy status to other drugs, medicaments and biological substances; Z79.899 Other long term (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 therapy; X58.XXXA Exposure to other specified factors, initial encounter
CPT/HCPCS: 99282

== ENCOUNTER 2018-12-05 03:50 | Emergency (ER) | payer MEDICAID ==
[~2018-12-05] VITALS: Ht 177.8 cm; Wt 90.7 kg
--- OUTSIDE RECORDS SUMMARY | 2018-12-05 03:52 | XMS ---
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 CRITERIA MET - Group Notification - 6 ED Visits in 6 Months - [facility] - Has Care Guidelines - PDMP - [facility] - 2 Visits in 30 Days CARE PROVIDERS DEANDRE MCCRARY [facility] 02/03/2018-Current PHONE: [phone] [facility], [facility]: Health Service 07/21/2018-Current PHONE: [phone] [facility] Internal Medicine 09/24/2018-[facility] - [place] PHONE: [phone] [facility] Primary [facility] PHONE: Unknown [facility] Primary [facility] PHONE: Unknown [facility] Primary Care 09/24/2018-[facility] PHONE: Unknown [facility] Primary Care 07/21/2018-Current PHONE: [phone] Guidelines Source: Jenna Garcia Guidelines Date: 10/13/2018 Care Coordination: Currently engaged in mental health services with [facility].\T\nbsp; [facility].\T\nbsp; [phone]. Care History Medical/Surgical 10/08/2018 [facility] - E[facility]IPA CASE MANAGEMENT REFERRAL MADE- PATIENT LWBS IN THE ED- DOES NOT HAVE A PCP. 04/18/2018 [facility] - PATIENT CURRENTLY ON A PAIN CONTRACT WITH DR HERMANN MICHAELS. - PATIENT HAS CHRONIC NECK PAIN. - PATIENT RECENTLY TESTES POSITIVE FOR METHAMPHETAMINE USAGE. Care Recommendation: - USE EXTREME CAUTION IN GIVING NARCOTICS TO THIS PATIENT. - Avoid Discharge Narcotic prescriptions if at all possible. Please use clinical judgement. E.D. VISIT COUNT (12 MO.) 1 [facility] 1 [place] [address] [facility] [address] [facility] TOTAL 13 NOTE: Visits indicate total known visits. ED/UCC VISIT TRACKING (12 MO.) 12/05/2018 03:50 [facility] [place] TYPE: Emergency COMPLAINT: - TOOTH PAIN 11/29/2018 14:58 [facility] [place] TYPE: Emergency COMPLAINT: - BLISTER BOTTOM OF FEET BILATERAL DIAGNOSES: - Essential (primary) hypertension - Other specified disorders of the skin and subcutaneous tissue - Acquired absence of other specified parts of digestive tract - Blister (nonthermal), left foot, initial encounter - Exposure to other specified factors, initial encounter - Allergy status to other drugs, medicaments and biological substances status - Personal history of urinary calculi - Blister (nonthermal), right foot, initial encounter - Allergy status to other antibiotic agents status - 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 - Personal history of nicotine dependence 11/28/2018 22:29 [facility] [place] TYPE: Emergency COMPLAINT: - MULLTIPLE COMPAINTS DIAGNOSES: - Allergy status to other drugs, medicaments and biological substances status - Personal history of urinary calculi - Exposure to other specified factors, initial encounter - Acquired absence of other specified parts of digestive tract - Blister (nonthermal), left foot, initial encounter - Pain in right foot - Essential (primary) hypertension - 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 - Personal history of nicotine dependence - Blister (nonthermal), right foot, initial encounter - Allergy status to other antibiotic agents status - Other specified disorders of the skin and subcutaneous tissue 11/24/2018 10:49 [facility] [place] TYPE: Psychiatric Emergency DIAGNOSES: - Delusional disorders - SI - Other stimulant abuse, uncomplicated 10/13/2018 19:40 [facility] [place] TYPE: Emergency COMPLAINT: - POSS MEDICATION REACTION DIAGNOSES: - 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 - Other specified disorders of teeth and supporting structures - Essential (primary) hypertension - Allergy status to other drugs, medicaments and biological substances status - Nicotine dependence, unspecified, uncomplicated - Anxiety disorder, unspecified 10/13/2018 13:46 [facility] [place] TYPE: Emergency DIAGNOSES: - Essential (primary) hypertension - Other specified disorders of teeth and supporting structures - TOOTH PAIN 10/13/2018 06:25 [facility] [place] TYPE: Emergency COMPLAINT: - DENTAL PAIN DIAGNOSES: - Allergy status to penicillin - Allergy status to other drugs, medicaments and biological substances status - Other group home (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 therapy - Nicotine dependence, unspecified, [...] MENTAL HLTH AND BEHAVRL DIS - Other group home (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 therapy - Personal history of urinary calculi 10/07/2018 18:55 [facility] [place] TYPE: Emergency COMPLAINT: - MEDICAL CLEARANCE DIAGNOSES: - Procedure and treatment not carried out due to patient leaving prior to being seen by health care provider 04/17/2018 09:27 [facility] [place] TYPE: Emergency COMPLAINT: - HEADACHE DIAGNOSES: - 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 - Allergy status to [...] pain - Anxiety disorder, unspecified - Other group home (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 therapy - Allergy status to penicillin - Essential (primary) hypertension 01/31/2018 23:16 [facility] [place] TYPE: Emergency COMPLAINT: - POSS POSIONING DIAGNOSES: - Allergy status to penicillin - Essential (primary) hypertension - Allergy status to other drugs, medicaments and biological substances status - 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 - Anxiety disorder, unspecified [...] withdrawal - Essential (primary) hypertension - Other group home (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 therapy - Nausea with vomiting, unspecified - Dehydration INPATIENT VISIT TRACKING (12 MO.) No inpatient visits to display in this time frame [id number]
[2018-12-05] MEDS ORDERED: PENICILLIN V P500 MG PO (04:53)
== END 2018-12-05 04:58 | disposition home or self-care (01) ==
LOC: ED 03:50
DX: K08.89 Other specified disorders of teeth and supporting structures (principal); I10 Essential (primary) hypertension; F17.200 Nicotine dependence, unspecified, uncomplicated; Z87.442 Personal history of urinary calculi; Z90.49 Acquired absence of other specified parts of digestive tract; Z88.1 Allergy status to other antibiotic agents; Z88.8 Allergy status to other drugs, medicaments and biological substances; Z79.899 Other long term (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 therapy
CPT/HCPCS: 99282

== ENCOUNTER 2019-03-17 05:20 | Emergency (ER) | payer OTHER ==
[~2019-03-17] VITALS: Ht 177.8 cm; Wt 91.6 kg
[~2019-03-17 05:20] MED LIST changes: +PENICILLIN V P500 MG PO
--- OUTSIDE RECORDS SUMMARY | 2019-03-17 05:22 | XMS ---
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 CRITERIA MET - Group Notification - 6 ED Visits in [address] [facility] - Has Care Guidelines - PDMP - [facility] - 2 Visits in 30 Days CARE PROVIDERS DEANDRE MCCRARY [facility] 02/03/2018-Current PHONE: [phone] [facility], [facility]: Health Service 07/21/2018-Current PHONE: [phone] [facility] Internal Medicine 09/24/2018-[facility] - [place] PHONE: [phone] [facility] Primary [facility] PHONE: Unknown [facility] Primary [facility] PHONE: Unknown [facility] Primary Care 09/24/2018-[facility] Landen CHARLES PHONE: [phone] [facility] Primary Care 07/21/2018-Current PHONE: [phone] Guidelines Source: Jenna Garcia Guidelines Date: 10/13/2018 Care Coordination: Currently engaged in mental health services with [facility].\T\nbsp; Please contact [facility] with mental health concerns.\T\nbsp; [phone]. Care History Medical/Surgical 12/05/2018 [facility] - PLEASE CONTACT DEBBY SUTTON IF PATIENT IS SEEN IN THE ED DURING THE BUSINESS DAY HOURS [phone]. 10/08/2018 [facility] - EOIPA CASE MANAGEMENT REFERRAL MADE- PATIENT LWBS IN THE ED- DOES NOT HAVE A PCP. 04/18/2018 [facility] - PATIENT CURRENTLY ON A PAIN CONTRACT WITH DR HERMANN MICHAELS. - PATIENT HAS CHRONIC NECK PAIN. - PATIENT RECENTLY TESTS POSITIVE FOR METHAMPHETAMINE USAGE. Care Recommendation: - USE EXTREME CAUTION IN GIVING NARCOTICS TO THIS PATIENT. - Avoid Discharge Narcotic prescriptions if at all possible. Please use clinical judgement. E.D. VISIT COUNT (12 MO.) 2 [facility] [address] [place] [address] [facility]. TOTAL 14 NOTE: Visits indicate total known visits. ED/UCC VISIT TRACKING (12 MO.) 03/17/2019 05:21 [facility] [place] TYPE: Emergency COMPLAINT: - MEDICAL CLEARANCE 03/11/2019 22:05 [facility] [place] TYPE: Emergency DIAGNOSES: - leg pain - Paranoid schizophrenia 12/18/2018 01:04 [facility] [place] TYPE: Emergency COMPLAINT: - HEAD PAIN/NON INJURY DIAGNOSES: - Acquired absence of other specified parts of digestive tract - Allergy status to other antibiotic agents status - Essential (primary) hypertension - Allergy status to other drugs, medicaments and biological substances status - Personal history of urinary calculi - Nicotine dependence, unspecified, uncomplicated - Other chronic pain - Other longterm (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 therapy - Headache - Acute pharyngitis, unspecified 12/05/2018 03:50 [facility] [place] TYPE: Emergency COMPLAINT: - TOOTH PAIN DIAGNOSES: - Other longterm (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 therapy - Acquired absence of other specified parts of digestive tract - Other specified disorders of teeth and supporting structures - Essential (primary) hypertension - Nicotine dependence, unspecified, uncomplicated - Allergy status to other drugs, medicaments and biological substances status - Allergy status to other antibiotic agents status - Personal history of urinary calculi 11/29/2018 14:58 [facility] [place] TYPE: Emergency [...] to other antibiotic agents status - Other longterm (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 therapy - Personal history of [...] foot - Essential (primary) hypertension - Other longterm (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 therapy - Personal history of nicotine dependence - Blister (nonthermal), right foot, initial encounter - Allergy status to other antibiotic agents status - Other specified disorders of the skin and subcutaneous tissue 11/24/2018 10:49 [facility] Roz[facility] [place] TYPE: Psychiatric Emergency DIAGNOSES: - Delusional disorders - SI - Other stimulant abuse, uncomplicated 10/13/2018 19:40 [facility] [place] TYPE: Emergency COMPLAINT: - POSS MEDICATION REACTION DIAGNOSES: - 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 (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 therapy - Other specified disorders of teeth and supporting structures - Essential (primary) hypertension - Allergy status to other drugs, medicaments and biological substances status - Nicotine dependence, unspecified, uncomplicated - Anxiety disorder, unspecified 10/13/2018 13:46 [facility] [place] TYPE: Emergency DIAGNOSES: - Essential (primary) hypertension - Other specified disorders of teeth and supporting structures - TOOTH PAIN 10/13/2018 06:25 [facility] [place] TYPE: Emergency COMPLAINT: - DENTAL PAIN DIAGNOSES: - Allergy status to penicillin - Allergy status to other drugs, medicaments and biological substances status - Other longterm (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 therapy - Nicotine dependence, unspecified, [...] MENTAL HLTH AND BEHAVRL DIS - Other longterm (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 therapy - Personal history of urinary calculi 10/07/2018 18:55 [facility] [place] TYPE: Emergency COMPLAINT: - MEDICAL CLEARANCE DIAGNOSES: - Procedure and treatment not carried out due to patient leaving prior to being seen by health care provider 04/17/2018 09:27 [facility] [place] TYPE: Emergency COMPLAINT: - HEADACHE DIAGNOSES: - 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 (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 therapy - Allergy status to penicillin - Allergy status to other drugs, medicaments and biological substances status - Headache - Essential (primary) hypertension - Nicotine dependence, unspecified, uncomplicated 03/26/2018 22:31 [facility] [place] TYPE: Emergency COMPLAINT: - LOW BACK PAIN,L LEG PAIN DIAGNOSES: - Nicotine dependence, unspecified, uncomplicated - Allergy status to other drugs, medicaments and biological substances status - Low back pain - Anxiety disorder, unspecified - Other longterm (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 therapy - Allergy status to penicillin - Essential (primary) hypertension INPATIENT VISIT TRACKING (12 MO.) No inpatient visits to display in this time frame [id number]
== END 2019-03-17 08:45 | disposition home or self-care (01) ==
LOC: ED 05:20
DX: Z00.8 Encounter for other general examination (principal); I10 Essential (primary) hypertension; F17.200 Nicotine dependence, unspecified, uncomplicated; Z87.442 Personal history of urinary calculi; Z88.5 Allergy status to narcotic agent; Z88.1 Allergy status to other antibiotic agents; Z88.8 Allergy status to other drugs, medicaments and biological substances; Z79.899 Other long term (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 therapy
CPT/HCPCS: 99282

== ENCOUNTER 2019-09-17 15:55 | Emergency (ER) | payer OTHER ==
[~2019-09-17] VITALS: Ht 177.8 cm; Wt 91.6 kg
--- OUTSIDE RECORDS SUMMARY | 2019-09-17 15:58 | XMS ---
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 18 months Most recent security events: Elopement at [facility] 10/07/2018 18:55 - Other Details: PATIENT LWBS- CRITERIA MET - Group Notification - [facility] - Has Care Guidelines CARE PROVIDERS DEANDRE MCCRARY [facility] 02/03/2018-Current PHONE: [phone] [facility], [facility]: Health Service 07/21/2018-Current PHONE: [phone] [facility] Internal Medicine 09/24/2018-[facility] - [place] PHONE: [phone] [facility] Primary Care Current [place] PHONE: Unknown [facility] Primary Care Current [place] PHONE: Unknown [facility] Primary Care 09/24/2018-[facility] - [place] PHONE: [phone] [facility] Primary Care 07/21/2018-Current PHONE: [phone] Guidelines [facility]: [facility] Guidelines Date: 10/13/2018 Care Coordination: Currently engaged in mental health services with [facility].\T\nbsp; [facility].\T\nbsp; [phone]. Care History Medical/Surgical 12/05/2018 [facility] - PLEASE CONTACT DEBBY SUTTON IF PATIENT IS SEEN IN THE ED DURING THE BUSINESS DAY HOURS [phone]. 10/08/2018 [facility] - EOIPA CASE MANAGEMENT REFERRAL MADE- PATIENT LWBS IN THE ED- DOES NOT HAVE A PCP. 04/18/2018 [facility] - PATIENT CURRENTLY ON A PAIN CONTRACT WITH DR MCCRARY OFFICE. - PATIENT HAS CHRONIC NECK PAIN. - PATIENT RECENTLY TESTS POSITIVE FOR METHAMPHETAMINE USAGE. Care Recommendation: - USE EXTREME CAUTION IN GIVING NARCOTICS TO THIS PATIENT. - Avoid Discharge Narcotic prescriptions if at all possible. Please use clinical judgement. E.D. VISIT COUNT (12 MO.) 2 [facility] 1 [place] 10 [facility]. TOTAL 13 NOTE: Visits indicate total known visits. 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 therapy - Unsp psychosis not due to a substance or known physiol cond - Encounter for other general examination - Allergy status to narcotic agent status - Personal history of urinary calculi - Essential (primary) hypertension 03/11/2019 22:05 [facility] [place] TYPE: Emergency DIAGNOSES: - leg pain - Paranoid schizophrenia 12/18/2018 01:04 [facility] [place] TYPE: Emergency COMPLAINT: - HEAD PAIN/NON INJURY DIAGNOSES: - Acquired absence of other specified parts of digestive tract - Allergy status to other antibiotic agents status - Essential (primary) hypertension - Allergy status to oth drug/meds/biol subst status - Personal history of urinary calculi - Nicotine dependence, unspecified, uncomplicated - Other chronic pain - Other mcfp (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 therapy - Headache - Acute pharyngitis, unspecified 12/05/2018 03:50 [facility] [place] TYPE: Emergency COMPLAINT: - TOOTH PAIN DIAGNOSES: - Other mcfp (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 therapy - Acquired absence of other specified parts of digestive tract - Other specified disorders of teeth and supporting structures - Periapical abscess without sinus - Essential (primary) hypertension - Nicotine dependence, unspecified, uncomplicated - Allergy status to oth drug/meds/biol subst status - Allergy status to other antibiotic agents status - Personal history of urinary calculi 11/29/2018 14:58 [facility] [place] TYPE: Emergency COMPLAINT: - BLISTER BOTTOM OF FEET BILATERAL DIAGNOSES: - Essential (primary) hypertension - Oth disrd of the skin and subcutaneous tissue - Acquired absence of other specified parts of digestive tract - Blister (nonthermal), left foot, initial encounter - Exposure to other specified factors, initial encounter - Allergy status to oth drug/meds/biol subst status - Personal history of urinary calculi - Blister (nonthermal), right foot, initial encounter - Allergy status to other antibiotic agents status - Other mcfp (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 therapy - Personal history of nicotine dependence 11/28/2018 22:29 [facility] [place] TYPE: Emergency COMPLAINT: - MULLTIPLE COMPAINTS DIAGNOSES: - Allergy status to oth drug/meds/biol subst status - Personal history of urinary calculi - Exposure to other specified factors, initial encounter - Acquired absence of other specified parts of digestive tract - Blister (nonthermal), left foot, initial encounter - Pain in right foot - Essential (primary) hypertension - Other bark grinder (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 therapy - Personal history of nicotine dependence - Blister (nonthermal), right foot, initial encounter - Allergy status to other antibiotic agents status - Oth disrd of the skin and subcutaneous tissue 11/24/2018 10:49 Chaitanya Reed [place] TYPE: Psychiatric Emergency DIAGNOSES: - Delusional disorders - SI - Other stimulant abuse, uncomplicated 10/13/2018 19:40 [facility] [place] TYPE: Emergency COMPLAINT: - POSS MEDICATION REACTION DIAGNOSES: - Other bark 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 (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 therapy - Other specified disorders of teeth and supporting structures - Essential (primary) hypertension - Allergy status to oth drug/meds/biol subst status - Nicotine dependence, unspecified, uncomplicated - Anxiety disorder, unspecified 10/13/2018 13:46 [facility] [place] TYPE: Emergency DIAGNOSES: - Essential (primary) hypertension - Other specified disorders of teeth and supporting structures - TOOTH PAIN 10/13/2018 06:25 [facility] [place] TYPE: Emergency COMPLAINT: - DENTAL PAIN DIAGNOSES: - Allergy status to penicillin - Allergy status to oth drug/meds/biol subst status - Other bark grinder (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 therapy - Nicotine dependence, unspecified, uncomplicated - Essential (primary) hypertension - Other specified disorders of teeth and supporting structures 10/09/2018 19:03 [facility] [place] TYPE: Emergency COMPLAINT: - MEDICAL CLERANCE DIAGNOSES: - Anxiety disorder, unspecified - Nicotine dependence, unspecified, uncomplicated - Major depressive disorder, single episode, unspecified - Allergy status to oth drug/meds/biol subst status - Essential (primary) hypertension - Allergy status to penicillin - ENCNTR SCREEN EXAM FOR MENTAL HLTH AND BEHAVRL DIS - Other bark grinder (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 therapy - Personal history of urinary calculi 10/07/2018 18:[address] [facility] [address] [facility] [place] TYPE: Emergency COMPLAINT: - MEDICAL CLEARANCE DIAGNOSES: - Proc/trtmt not crd out d/t pt lv bef seen by [facility] care prov INPATIENT VISIT TRACKING (12 MO.) No inpatient visits to display in this time frame [id number]
[2019-09-17] MEDS ORDERED: AUGMENTIN 875-1 EACH PO (17:34)
== END 2019-09-17 17:44 | disposition home or self-care (01) ==
LOC: ED 15:55
DX: M27.2 Inflammatory conditions of jaws (principal); I10 Essential (primary) hypertension; F17.200 Nicotine dependence, unspecified, uncomplicated; Z87.442 Personal history of urinary calculi; Z90.49 Acquired absence of other specified parts of digestive tract; Z79.899 Other long term (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 therapy; Z88.1 Allergy status to other antibiotic agents; Z88.8 Allergy status to other drugs, medicaments and biological substances
CPT/HCPCS: 71046; 87502; 99283-25

== ENCOUNTER 2019-12-17 16:53 | Emergency (ER) | payer OTHER ==
[~2019-12-17] VITALS: Ht 177.8 cm; Wt 91.6 kg
[~2019-12-17 16:53] MED LIST changes: +AUGMENTIN 875-1 EACH PO; +CYCLOBENZAPRINE10 MG PO
--- OUTSIDE RECORDS SUMMARY | 2019-12-17 16:56 | XMS ---
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 1 event(s) in the past 18 months Most recent security events: Elopement at [facility] 10/07/2018 18:55 - Other Details: PATIENT LWBS- CRITERIA MET - Group Notification - [facility] - Has Care Guidelines - [facility] - 2 Visits in 30 Days CARE PROVIDERS DEANDRE MCCRARY [facility] 02/03/2018-Current PHONE: [phone] [facility]: Health Service 07/21/2018-Current PHONE: [phone] STEFFEN BENSON [facility] 12/14/2019-Current PHONE: [phone] [facility] Internal Medicine 09/24/2018-Current CLINIC - [place] PHONE: [phone] Guidelines Source: Jenna Garcia Guidelines Date: 10/13/2018 Care Coordination: Currently engaged in mental health services with [facility].\T\nbsp; Please contact [facility] with mental health concerns.\T\nbsp; [phone]. Care History Medical/Surgical 12/14/2019 [facility] Care Recommendation: - PLEASE REVIEW PDMP ON THE BERN[place] - USE EXTREME CAUTION IN GIVING NARCOTICS. - Avoid Discharge Narcotic prescriptions if at all possible. Physician discretion. E.D. VISIT COUNT (12 MO.) 1 [facility] 5 [facility]. TOTAL 6 NOTE: Visits indicate total known visits. ED/UCC VISIT TRACKING (12 MO.) 12/17/2019 16:54 [facility] [place] TYPE: Emergency COMPLAINT: - NUMBNESS/WEAKNESS 12/11/2019 13:06 [facility] [place] TYPE: Emergency COMPLAINT: - NECK/BACK PAIN, NUMBNESS IN HANDS DIAGNOSES: - Anxiety disorder, unspecified - Allergy status to other antibiotic agents status - Radiculopathy, cervical region - Allergy status to other drugs, medicaments and biological sub - Essential (primary) hypertension - Nicotine dependence, unspecified, uncomplicated - Cervicalgia 09/17/2019 15:56 [facility] [place] TYPE: Emergency COMPLAINT: - COUGH, FEVER DIAGNOSES: - Other assisted (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 therapy - Allergy status to other drugs, medicaments and biological sub - Headache - Allergy status to other antibiotic agents status - Inflammatory conditions of jaws - Personal history of urinary calculi - Nicotine dependence, unspecified, uncomplicated - Acquired absence of other specified parts of digestive tract - Essential (primary) hypertension 03/17/2019 05:21 [facility] [place] TYPE: Emergency COMPLAINT: - MEDICAL CLEARANCE DIAGNOSES: - Allergy status to other antibiotic agents status - Nicotine dependence, unspecified, uncomplicated - Allergy status to other drugs, medicaments and biological sub - Other assisted (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 therapy - Unspecified psychosis not due to a substance or known physiol - Encounter for other general examination - Allergy status to narcotic agent status - Personal history of urinary calculi - Essential (primary) hypertension 03/11/2019 22:05 [facility] [place] TYPE: Emergency DIAGNOSES: - leg pain - Paranoid schizophrenia 12/18/2018 01:04 [facility] [place] TYPE: Emergency COMPLAINT: - HEAD PAIN/NON INJURY DIAGNOSES: - Acquired absence of other specified parts of digestive tract - Allergy status to other antibiotic agents status - Essential (primary) hypertension - Allergy status to other drugs, medicaments and biological sub - Personal history of urinary calculi - Nicotine dependence, unspecified, uncomplicated - Other chronic pain - Other release coordinator (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 therapy - Headache - Acute pharyngitis, unspecified INPATIENT VISIT TRACKING (12 MO.) No inpatient visits to display in this time frame [id number]
[2019-12-17] MEDS ORDERED: NEURONTIN100 MG PO (17:56)
[2019-12-17] MEDS ORDERED: PREDNISONE20 MG PO (17:56)
== END 2019-12-17 18:10 | disposition home or self-care (01) ==
LOC: ED 16:53
DX: M54.12 Radiculopathy, cervical region (principal); I10 Essential (primary) hypertension; F17.200 Nicotine dependence, unspecified, uncomplicated; Z88.8 Allergy status to other drugs, medicaments and biological substances; Z88.1 Allergy status to other antibiotic agents
CPT/HCPCS: 99283; J7512

== ENCOUNTER 2019-12-23 12:54 | Emergency (ER) | payer OTHER ==
[~2019-12-23] VITALS: Ht 177.8 cm; Wt 91.6 kg
[~2019-12-23 12:54] MED LIST changes: +NEURONTIN100 MG PO; +PREDNISONE20 MG PO
--- OUTSIDE RECORDS SUMMARY | 2019-12-23 12:58 | XMS ---
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 02/03/2018-Current PHONE: [phone] [facility]: Health Service 07/21/2018-Current PHONE: [phone] STEFFEN BENSON [facility] 12/14/2019-Current PHONE: [phone] [facility] Internal Medicine 09/24/2018-Current CLINIC - [place] PHONE: [phone] Guidelines Source: Jenna Garcia Guidelines Date: 10/13/2018 Care Coordination: Currently engaged in mental health services with [facility].\T\nbsp; Please contact [facility] with mental health concerns.\T\[facility]; [phone]. Care History Medical/Surgical 12/21/2019 [facility] - [facility] IS UNABLE TO CONTACT PATIENT- PATIENT DOES NOT HAVE AN ADDRESS AND OR PHONE NUMBER LISTED. - [facility]BER TO PATIENT- [phone]. 12/14/2019 [facility] Care Recommendation: - PLEASE REVIEW PDMP ON THE BERN[place] - USE EXTREME CAUTION IN GIVING NARCOTICS. - Avoid Discharge Narcotic prescriptions if at all possible. Physician discretion. E.D. VISIT COUNT (12 MO.) 1 [facility] 5 [facility]. TOTAL 6 NOTE: Visits indicate total known visits. ED/UCC VISIT TRACKING (12 MO.) 12/23/2019 12:55 [facility] [place] TYPE: Emergency COMPLAINT: - NUMBNESS 12/17/2019 16:54 [facility] [place] TYPE: Emergency COMPLAINT: - NUMBNESS/WEAKNESS DIAGNOSES: - Nicotine dependence, unspecified, uncomplicated - Radiculopathy, cervical region - Allergy status to other drugs, medicaments and biological sub - Essential (primary) hypertension - Anesthesia of skin - Allergy status to other antibiotic agents status 12/11/2019 13:06 [facility] [place] TYPE: Emergency [...] COMPLAINT: - COUGH, FEVER DIAGNOSES: - Other penitentiary (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 therapy [...] drugs, medicaments and biological sub - Other intermodal dispatcher (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 therapy - Unspecified psychosis not due to a substance or known physiol - Encounter for other general examination - Allergy status to narcotic agent status - Personal history of urinary calculi - Essential (primary) hypertension 03/11/2019 22:05 [facility] [place] TYPE: Emergency DIAGNOSES: - leg pain - Paranoid schizophrenia INPATIENT VISIT TRACKING (12 MO.) No inpatient visits to display in this time frame [id number]
[2019-12-23] MEDS ORDERED: NORCO 7.5-3251 EACH PO (18:32)
== END 2019-12-23 18:48 | disposition home or self-care (01) ==
LOC: ED 12:54
DX: M50.31 Other cervical disc degeneration, high cervical region (principal); F41.9 Anxiety disorder, unspecified; I10 Essential (primary) hypertension; F17.200 Nicotine dependence, unspecified, uncomplicated; Z88.8 Allergy status to other drugs, medicaments and biological substances; Z88.1 Allergy status to other antibiotic agents
CPT/HCPCS: 72156; 99284-25; A9270; A9577

== ENCOUNTER 2020-01-18 07:33 | Emergency (ER) | payer OTHER ==
[~2020-01-18] VITALS: Ht 177.8 cm; Wt 90.7 kg
--- OUTSIDE RECORDS SUMMARY | ~2020-01-18 | XMS | Encounter Summary ---
Demographics + + + | Address | [address] | | | [place] [address] | + + + | Home Phone | | + + + | Preferred Language | Unknown | + + + | Marital Status | Single | + + + | Gnosticism Affiliation | Unknown | + + + [...] Team Providers + +------+ + | Care Behavioral Geneticist Name | Role | Phone | + +------+ + | No, Physician | PCP | Unavailable | + +------+ + Reason for Visit + + + | Reason | Comments | + + + | Ear Fullness | | + + + | Sinus Problem | exam 5/ x 3 days/ drainage | + + + | Sweats | | + + + Encounter Details +--------+---------+ + + + | Date | Type | Department | Care Team | Description | +--------+---------+ + + + | 04/10/ | Office | [facility] | Theresa Peña | Acute maxillary | | 2015 | Visit | CARE [address] | DO Concetta Cuellar | sinusitis, | | | | [place], [place] | [place] | recurrence not | | | | [address] | [id number] | specified (Primary | | | | [phone] | | Dx) | +--------+---------+ + + + Social History + +-------+ [...] | Blood Pressure | 130/90 | 04/10/2015 12:22 PM | | | | | PDT | | + + + + + | Pulse | 58 | 04/10/2015 12:22 PM | | | | | PDT | | + + + + + | Temperature | 36.3 C (97.3 F) | 04/10/2015 12:22 PM | | | | | PDT | | + + + + + | Respiratory Rate | 20 | 04/10/2015 12:22 PM | | | | | PDT | | + + + + + | Oxygen Saturation | 100% | 04/10/2015 12:22 PM | | | | | PDT | | + + + + + | Inhaled Oxygen | - | - | | | Concentration | | | | + + + + + | Weight | 99.3 kg (219 lb) | 04/10/2015 12:22 PM | | | | | PDT | | + + + + + | Height | 177.8 cm (5' 10") | 04/10/2015 12:22 PM | | | | | PDT | | + + + + + | Body Mass Index | 31.42 | 04/10/2015 12:22 PM | | | | | PDT | | + + + + + documented in this encounter Patient Instructions Patient Instructions Theresa Peña MD - 04/10/2015 1:13 PM PDTPrescription for Zithromax and Flonase nasal spray sent to pharmacy occupational physician some Afrin or [place]-Synephrine and use 2 sprays to each nostril for one or 2 doses. Do not use repetitively Stay well-hydrated Return if symptoms worsen or fail to improve documented in this encounter Progress Notes Theresa Peña MD - 04/11/2015 8:31 AM PDTFormatting of this note might be diffe rent from the original. Subjective: Patient ID: Marie Browne is a 44 y.o. male. HPI Comments: Patient is here with chief complaint of cold symptoms that his been ongoing n ow for approximately 9 days. Patient states that it all started with a sore throat but that 's gone away now she is having some mild pain to her ears and the left greater than the righ t. She states that she has had hot flashes and cold sweats. She did not actually take her temperature. She states that she is having a lot of pain in her maxillary sinuses and his h aving lots of postnasal drainage. Patient states that she has tried Mucinex and DayQuil and NyQuil with no improvement. She is not tried any nasal sprays Patient's medications, allergies, past medical, surgical, social and family histories were reviewed and updated as appropriate. Review of Systems All other systems reviewed and are negative. Objective: Physical Exam Constitutional: He is oriented to person, place, and time. He appears well-developed and we ll-nourished. HENT: Head: Normocephalic and atraumatic. Patient's left and right TMs are slightly retracted but there is no signs of any infection. Patient has pain to percussion of her maxillary sinuses and she has periodic postnasal luz inage Neck: Normal range of motion. Cardiovascular: Normal rate, regular rhythm and normal heart sounds. Pulmonary/Chest: Effort normal and breath sounds normal. He has no wheezes. Lymphadenopathy: He has no cervical adenopathy. Neurological: He is alert and oriented to person, place, and time. Skin: Skin is warm and dry. Psychiatric: He has a normal mood and affect. Nursing note and vitals reviewed. Assessment: Maxillary sinusitis Plan: Patient was seen and examined. She has findings consistent with a maxillary sinusitis. Jose A de la rosa is allergic to amoxicillin and so was started on Zithromax to be taken as directed. S he is also advised to use Flonase on a daily basis. I did advise that she could have a very brief trial of Afrin for 2-3 doses to open up her sinus passages and help them drain. Connie ent is advised to hydrate aggressively and she should return if symptoms worsen or fail to i mprove documented in this encounter Plan of Treatment Not on filedocumented as of this encounter Visit Diagnoses + + | Diagnosis | + + | Acute maxillary sinusitis, recurrence not specified - Primary | + + documented in this encounter
--- OUTSIDE RECORDS SUMMARY | ~2020-01-18 | XMS | Encounter Summary ---
Demographics + + + | Address | [address] | | | [place] [address] | + + + | Home Phone | | + + + | Preferred Language | Unknown | + + + | Marital Status | Single | + + + | Denominational Affiliation | Unknown | + + + | Race | Unknown | + + + | Ethnic Group | Unknown | + + + Author + + + | Author | [facility] | | | and [place] | + + + | Organization | [facility] | | | and [...] Team Providers + +------+ + | Care Vacuum Drier Operator Name | Role | Phone | + +------+ + | No, Physician | PCP | Unavailable | + +------+ + Reason for Visit + + + | Reason | Comments | + + + | Extremity Weakness | known issue with cervical spine from MRI done at [facility]. | | | Sent here by ED doctor at [facility] to see Dr. Smalls. | + + + | Numbness | bilateral arms | + + + Encounter Details +--------+ + + + + | Date | Type | Department | Care Team | Description | +--------+ + + + + | 12/23/ | Emergency | [facility] | Christy Benitez, | Herniation of | | 2019 - | | MEDICAL CENTER | DO [address] | intervertebral disc | | | | EMERGENCY CENTER | [place] [address] | of high cervical | | 12/24/ | | [address] | [phone] | region (Primary Dx); | | 2019 | | [place], [place] | | Bilateral arm | | | | [address] | | weakness | | | | [phone] | | | +--------+ + + + [...] RN - 12/25/2019 8:44 AM PDTReport to [facility]. Casandra Manzanares RN - 12/25/2019 7:39 AM PDTAssumed care of pt from Nighat WADE. Electronically signed by Casandra Gaviria RN at 7:40 AM Ryan Morgan RN - 12/25/2019 1:32 AM PDTPt resting quietly. Electro nically signed by Ryan Carrillo RN at 12/25/2019 1:32 AM Ryan Morgan RN - 0 10:03 PM PDTPt awake alert. 02 sat 98, pulse 78 ally Garnica Technologist - 12/24/2019 7:47 PM PDTAMR called carmita ruiz ACLS transfer to [facility].Electronically signed by Lisa Garcesologist at 020 7:48 PM Andre Lester RN - 12/24/2019 5:08 PM PDTRN requestioned pt about timel ine and who sent pt to see Dr. Patton. Pt states has been to [place] ED 3 times this week alone for same problem. States ER provider there told him he has already sent referrals to [facility] and [facility] for neurosurgery. Pt states has called both offices but was told the y couldn't schedule an appointment until they see a referral and have insurance approval. P t states he has talked with his insurance who has told him he can get an appointment with ne urosurgery. Pt states went to [facility] Neurosurgery office today with disk and paperwork and office workers told him they couldn't accept the disk without prior authorization. Pt s amando he then drove to ER at [facility] so he could be seen by Dr. Smalls. Electronically rob d by Andre Rodriguez RN at 12/24/2019 5:18 PM PDTAndre Rodriguez RN - 12/24/2019 4:40 P M PDTPt had MRI yesterday in [place] ER and was told to come to [facility] for emergent surgery with Dr. Patton. Pt states has hx of cervical fusions x2 done in [facility]. Pt s tates having worsening weakness in bilateral upper arm with numbness. Christy Stockton DO - 12/24/2019 4:26 PM PDT [facility] Department of Emergency Medicine 12/24/2019 4:26 PM PDT No flowsheet data found. History of Present Illness Patient Identification Cecilio Browne is a 49 y.o. male. Patient information was obtained from patient History/Exam limitations: none. Patient presented to the Emergency Department by: Car Chief Complaint Chief Complaint Patient presents with Extremity Weakness known issue with cervical spine from MRI done at [facility]. Sent here by ED doctor at [facility] to see Dr. Smalls. Numbness bilateral [...] neck pain. He was sent here by [place] CLARISSA [facility] to see the neurosurgeon after [...] retired but used to work out of [place]. The patient reports movement worsens symptoms, and [...] file Gets together: Not on file Attends quaker service: Not on file Active member of [...] CV/Resp: Negative for chest pain Negative for nbntjilhk-js-simcgj Negative for cough GI: Negative for abdominal [...] upper chest. He as 3/5 strength bilateral lens mounter as well as 3/5 strength in flexion [...] Decision Making as of Dec 24 2011 [facility] Dec 24, [address] Patton states that he is aware of the patient but he communicated to the clinician s in [place] that the patient should be sent to [place] on the outpatient basis for bonilla rgical consults. 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 1801 Jayant from [facility] calling me back. He should have a orthopedic spi nal surgeon on the phone for me shortly. 1853 Dr. Aparicio accepts [place] in [place] to [facility]. He states that, given the MRI report a nd the arm weakness (although mild ) pt needs surgery within the next day or two. He would like us to place the pt in a C-collar and keep him on bed rest. He will have us send the pt to the ED at [facility] and they will see the pt when [...] neurologic exam at this time however. Called [facility] to update them that the patient may [...] available (Using the electronic record system of [facility], with regard to the past medical/surgical history, previous medications, and all ergies). Laboratory Evaluation Results Procedure Component Value Ref Range Date/Time Coronavirus (COVID-19) NAAT [[id number]] Collected: 12/24/19 190 Order Status: Completed Specimen: Tissue from Nasopharynx Updated: 12/24/192017 SARS-CoV-2, MERCEDES (COVID-19) NEGATIVE NEG Sedimentation Rate [[id number]] Collected: 12/24/191702 Order Status: Completed Specimen: Blood Updated: 12/24/19 1845 ESR <1 0 - 20 mm/Hr C-Reactive Protein [[id number]] Collected: 12/24/191702 Order Status: Completed Specimen: Blood Updated: 12/24/199 CRP <0.4 <0.5 mg/dL Comprehensive Metabolic Panel [[id number]] (Abnormal) Collected: 12/24/191702 Order Status: Completed Specimen: [...] GFR >60 >60 mL/min/1.73m2 CBC with Differential [[id number]] Collected: 12/24/19 1703 Order Status: Completed Specimen: [...] Disposition Condition Comment Transfer to Another Facility [facility] This chart has in part been created using [employer] Speech Recognition software. The c monroe has [...] L?MRN: | | | | | | [id number] | | | [id number] | | | riteri | | | [...] | | | St. | | | [place] | | | y | | | [...] | | | lags | | | [place] | | | ED | | | Dispar | | | ity | | | Measur | | | e - | | | [place] | | | has | | | [...] | | | s. | | | [place] | | | | | | Health [...] | | | By: | | | [place] | | | | | | Health [...] | | | St. | | | [place] | | | y | | | [...] | | | St. | | | [place] | | | y H. | | [...] | | | St. | | | [place] | | | y H. | | [...] | | | St. | | | [place] | | | y H. | | [...] | | | St. | | | [place] | | | y H. | | [...] | | | St. | | | [place] | | | y H. | | [...] | | | TS | | | Grease Worker | | | al | | | [...] | | | | | performed at [facility] | | | | | | [address];[place], [place] | | | | | | [address] | | | | + + + + + + + + | Specimen | + + | Tissue - Entire | | nasopharynx (body | | structure) | + + + + + + + | Performing | Address | City/State/Zipcode | Phone Number | | Organization | | | | + + + + + | [facility] | [address] | [place] [address] | [phone] | + + + + + Sedimentation Rate (12/24/2019 5:03 PM PDT) + + + + + + | Component | Value | Ref Range | Performed | Pathologist | | | | | At | Signature | + + + + + + | ESR | <1Comment: Testing | 0 - 20 mm/Hr | [facility] | | | | performed at [facility];[address] | | LABORATORY | | | | [address];[place] | | | | | | [address] | | | | + + + + + + + + | Specimen | + + | Blood | + + + + + + + | Performing | Address | City/State/Zipcode | Phone Number | | Organization | | | | + + + + + | [facility] | [address] | [place] [address] | [phone] | + + + + + C-Reactive Protein (12/24/2019 5:03 PM PDT) + + + + + + | Component | Value | Ref Range | Performed | Pathologist | | | | | At | Signature | + + + + + + | CRP | <0.4Comment: Testing | <0.5 mg/dL | [facility] | | | | performed at [facility];[address] | | LABORATORY | | | | [address];[place] | | | | | | [address] | | | | + + + + + + + + | Specimen | + + | Blood | + + + + + + + | Performing | Address | City/State/Zipcode | Phone Number | | Organization | | | | + + + + + | [facility] | [address] | [place] [address] | [phone] | + + + + + Comprehensive [...] | | | | | performed at [facility];[address] | | | | | | [facility];[place], [place] | | | | | | [address] | | | | + + + + + + + + | Specimen | + + | Blood | + + + + + + + | Performing | Address | City/State/Zipcode | Phone Number | | Organization | | | | + + + + + | [facility] | [address] | [place] [address] | [phone] | + + + + + CBC [...] | | | Absolute | performed at [facility];[address] | [address] | LABORATORY | | | | [address];[place] | | | | | | [address] | | | | + + + + + + + + | Specimen | + + | Blood | + + + + + + + | Performing | Address | City/State/Zipcode | Phone Number | | Organization | | | | + + + + + | [facility] | [id number] | [place] [address] | [phone] | + + + + + XR [...] (500), | | | | | | editor & co founder BRIAN KIMBALL | | | | | [...]
--- OUTSIDE RECORDS SUMMARY | ~2020-01-18 | XMS | Encounter Summary ---
Demographics + + + | Address | [address] | | | [place] [address] | + + + | Home Phone | | + + + | Preferred Language | Unknown | + + + | Marital Status | Single | + + + | Baptist Affiliation | Unknown | + + + | Race | Unknown | + + + | Ethnic Group | Unknown | + + + Author + + + | Author | [facility] | | | and [place] | + + + | Organization | [facility] | | | and [...] Team Providers + +------+ + | Care Senior Health Physics Technician Name | Role | Phone | + +------+ + PCP | Unavailable | + +------+ + Encounter Details +--------+ + + + + | Date | Type | Department | Care Team | Description | +--------+ + + + + | 10/03/ | Hospital | [facility] | | | | 2006 | Encounter | MED CTR XRAY [address] | | | | | | [address] | | | | | | [place] [address] | | | | | | [phone] | | | +--------+ + + + [...]
--- OUTSIDE RECORDS SUMMARY | ~2020-01-18 | XMS | Encounter Summary ---
Demographics + + + | Address | [address] | | | [place] [address] | + + + | Home Phone | | + + + | Preferred Language | Unknown | + + + | Marital Status | Single | + + + | Worship Affiliation | Unknown | + + + | Race | Unknown | + + + | Ethnic Group | Unknown | + + + Author + + + | Author | [facility] | | | and [place] | + + + | Organization | [facility] | | [...] Team Providers + +------+ + | Care Sewer Line Repairer Name | Role | Phone | + [...] | | | CENTER [address] | [facility] | | | | | [address] [place] | [place] [address] | | | | | [address] | [phone] | | | | | [phone] | | | +--------+ + + + [...] - 1.030 | EXTERNAL | | | [place], | | | LAB | | | [...]
--- OUTSIDE RECORDS SUMMARY | ~2020-01-18 | XMS | Encounter Summary ---
Demographics + + + | Address | [address] | | | [place] [address] | + + + | Home Phone | | + + + | Preferred Language | Unknown | + + + | Marital Status | Single | + + + | Pentecostal Affiliation | Unknown | + + + | Race | Unknown | + + + | Ethnic Group | Unknown | + + + Author + + + | Author | [facility] | | | and [place] | + + + | Organization | [facility] | | | [...] Team Providers + +------+ + | Care Compressor House Operator Name | Role | Phone | + +------+ + PCP | Unavailable | + +------+ + Encounter Details +--------+ + + + + | Date | Type | Department | Care Team | Description | +--------+ + + + + | 08/28/ | Hospital | [facility] | | | | 2006 | Encounter | MED CTR GENERIC IP | | | | | | CONV DEPT [address] | | | | | | [place], | | | | | | [place] [id number] | | | | | | [phone] | | | +--------+ + + + [...]
--- OUTSIDE RECORDS SUMMARY | ~2020-01-18 | XMS | Clinical Summary ---
Demographics + + + | Address | [address] | | | [place] [address] | + + + | Home Phone | | + + + | Preferred Language | Unknown | + + + | Marital Status | Single | + + + | Quaker Affiliation | Unknown | + + + | Race | Unknown | + + + | Ethnic Group | Unknown | + + + Author + + + | Author | [facility] | | | and [place] | + + + | Organization | [facility] | | [...] Team Providers + +------+ + | Care Battery Tester Field Name | Role | Phone | + [...] + + Plan of Treatment + + +-------+ + | Health Maintenance | Due Date | Last | Comments | | | | Done | | + + +-------+ + | Vaccine: | | | | | Pneumococcal 19-64 | 6 | | | | (1 of 1 - PPSV23) | | | | + + +-------+ + | Vaccine: | | | | | Dtap/Tdap/Td (1 - | 9 | | | | Tdap) | | | | + + +-------+ + | Colorectal Cancer | | | | | Screening | 0 | | | | (Colonoscopy) | | | | + + +-------+ + | Vaccine: Zoster (1 | | | | | of 2) | 0 | | | + + +-------+ + | Vaccine: Influenza | | | | | (#1) | 0 | | | + + +-------+ + Procedures + +--------+ + + + [...] | | | 12/23/ | | | 2020 | | | 4:18 | | | [...] | | | ON?06/ | | | | | | 0 | | | 16:16? | | | [place] | | | , | | | CECILIO | | | L?MRN: | | | | | | [id number] | | | [id number] | | | riteri | | | [...] | | | St. | | | [place] | | | y | | | [...] | | | d: | | | 10/13/ | | | 9 | | | [...] | | | lags | | | [place] | | | ED | | | Dispar | | | ity | | | Measur | | | e - | | | [place] | | | has | | | [...] | | | s. | | | [place] | | | | | | Health [...] | | | By: | | | [place] | | | | | | Health [...] | | | St. | | | [place] | | | y | | | [...] | | | St. | | | [place] | | | y H. | | [...] | | | St. | | | [place] | | | y H. | | [...] | | | St. | | | [place] | | | y H. | | [...] | | | St. | | | [place] | | | y H. | | [...] | | | St. | | | [place] | | | y H. | | [...] | | | TS | | | Unloading Checker | | | al | | | [...] | | | ed.? | | | 2019 | | | Collec | | | [...] SARS-CoV-2, | NEGATIVEComment: This | NEG | [facility] | | | NAAT | test was [...] | | | | | performed at [facility];[address] | | | | | | [facility];[place], [place] | | | | | | [address] | | | | + + + + + + + + | Specimen | + + | Tissue - Entire | | nasopharynx (body | | structure) | + + + + + + + | Performing | Address | City/State/Zipcode | Phone Number | | Organization | | | | + + + + + | [facility] | [address] | [place] [address] | [phone] | + + + + + Sedimentation Rate (12/24/2019 5:03 PM PDT) + + + + + + | Component | Value | Ref Range | Performed | Pathologist | | | | | At | Signature | + + + + + + | ESR | <1Comment: Testing | 0 - 20 mm/Hr | [facility] | | | | performed at [facility];[address] | | LABORATORY | | | | [address];[place] | | | | | | [address] | | | | + + + + + + + + | Specimen | + + | Blood | + + + + + + + | Performing | Address | City/State/Zipcode | Phone Number | | Organization | | | | + + + + + | [facility] | [address] | [place] [address] | [phone] | + + + + + CBC [...] | | | Absolute | performed at [facility];[address] | [address] | LABORATORY | | | | [address];[place], [place] | | | | | | [address] | | | | + + + + + + + + | Specimen | + + | Blood | + + + + + + + | Performing | Address | City/State/Zipcode | Phone Number | | Organization | | | | + + + + + | [facility] | [address] | [place] [address] | [phone] | + + + + + C-Reactive Protein (12/24/2019 5:03 PM PDT) + + + + + + | Component | Value | Ref Range | Performed | Pathologist | | | | | At | Signature | + + + + + + | CRP | <0.4Comment: Testing | <0.5 mg/dL | [facility] | | | | performed at [facility];[address] | | LABORATORY | | | | [address];[place], [place] | | | | | | [address] | | | | + + + + + + + + | Specimen | + + | Blood | + + + + + + + | Performing | Address | City/State/Zipcode | Phone Number | | Organization | | | | + + + + + | [facility] | [address] | [place] [address] | [phone] | + + + + + Comprehensive [...] | | | | | | MDRD IDNJ traceable | | | | | | equation.Testing | | | | | | performed at [facility] | | | | | | [facility];[place], [place] | | | | | | [address] | | | | + + + + + + + + | Specimen | + + | Blood | + + + + + + + | Performing | Address | City/State/Zipcode | Phone Number | | Organization | | | | + + + + + | [facility] | [address] | [place] [address] | [phone] | + + + + + XR [...] | | | | | ONLY, -COMPUTER (758), | | | | | | editorial assistant BRIAN KIMBALL | | | | | | ([id number]) on 12/25/2019 | | | | | [...] | [employer] | MODA | [id number] | 04/10/ | [phone] | | Medica | | MEDICAID HMO | HEALTH | | 2015-P | 1 | | id | | | MDCD | | resent | | | | | | [place] | | | | | | + +--------+ +--------+ +---------+--------+ | [employer] | [employer] | [id number] | | [phone] | | Medica | | MEDICAID HMO [...] | 1971 | [phone] | [place] [address] | | | nicole | | | 6 (Home) | | + +--------+ +--------+ + + | Cecilio Browne | Person | Self | [birth year] | [address] | | | al/Fam | | 1971 | [phone] | [place] [address] | | | nicole | | | 6 (Home) | | + +--------+ +--------+ + + Advance Directives + + + + + | Type | Date Recorded | Patient | Explanation | | | | Commercial Credit Officer | | + + + + + | Power of | | | | | Automatic Hemmer | | | | + + + + + | Advance | 06/23/2014 | | | | Directive | 10:27 AM | | | + + + + +
--- OUTSIDE RECORDS SUMMARY | ~2020-01-18 | XMS | Encounter Summary ---
Demographics + + + | Address | [address] | | | [place] [address] | + + + | Home Phone | | + + + | Preferred Language | Unknown | + + + | Marital Status | Single | + + + | Episcopalian Affiliation | Unknown | + + + | Race | Unknown | + + + | Ethnic Group | Unknown | + + + Author + + + | Author | [facility] | | | and [place] | + + + | Organization | [facility] | | | [...] Team Providers + +------+ + | Care Teacher Instrumental Name | Role | Phone | + [...] | | [address] | [place] [address] | | | | | [place] [address] | | | | | | [phone] | | | +--------+ + + + [...]
--- OUTSIDE RECORDS SUMMARY | ~2020-01-18 | XMS | Encounter Summary ---
Demographics + + + | Address | [address] | | | [place] [address] | + + + | Home Phone | | + + + | Preferred Language | Unknown | + + + | Marital Status | Single | + + + | Episcopal Affiliation | Unknown | + + + | Race | Unknown | + + + | Ethnic Group | Unknown | + + + Author + + + | Author | [facility] | | | and [place] | + + + | Organization | [facility] | | [...] Team Providers + +------+ + | Care Linen Attendant Name | Role | Phone | + +------+ + PCP | Unavailable | + +------+ + Encounter Details +--------+ + + + + | Date | Type | Department | Care Team | Description | +--------+ + + + + | 07/20/ | Hospital | [facility] | [place], | | | 2009 | Encounter | MEDICAL CENTER | MD Zackary DA SILVA | | | | | CLINICAL DECISION | [address], | | | | | UNIT [facility] | [place] [address] | | | | | [place] | [phone] | | | | | [address] | | | | | | [phone] | | | +--------+ + + + [...] Performed At | + + + | [facility] | | | [facility] [address] | | | , | | | [id number]/RADIOLOGY Patient Name: MARIE BROWNE Date of : | | | 1970 Medical Record: [id number] Account: [id number] | | | PRO// Exam Date/Time: 07/14/2009 [...] P A | | | 05:00 P JOON/[id number]/ cc: MD RHONDA AGUIAR | | | MD DAMON FLETCHER DO | | + + + + + | Procedure Note | + + | Dann Harris Conversion - 02/22/2019 5:05 PM PDT | | [facility] | | [facility] [address] | | , | | | | [id number]/RADIOLOGY | | | | Patient Name: MARIE BROWNE | | Date of : 1970 | | Medical Record: [id number] | | Account: [id number] | | PRO// | | | | [...] | A | | P | | [facility]/[email or web address]/[id number]/ | | cc: HUBER IVORY MD | | RHONDA FLETCHER MD | | DAMON WOODSON DO | + + documented in this encounter Visit Diagnoses Not on filedocumented in this encounter"
--- OUTSIDE RECORDS SUMMARY | ~2020-01-18 | XMS | Encounter Summary ---
Demographics + + + | Address | [address] | | | [place] [address] | + + + | Home Phone | | + + + | Preferred Language | Unknown | + + + | Marital Status | Single | + + + | Zoroastrian Affiliation | Unknown | + + + | Race | Unknown | + + + | Ethnic Group | Unknown | + + + Author + + + | Author | [facility] | | | and [place] | + + + | Organization | [facility] | | [...] Team Providers + +------+ + | Care Programming Director Name | Role | Phone | [...] | | | | | [address] [facility] | | | | | | [place], [place] | | | | | | [address] | | | | | | [phone] | | | +--------+ + + + [...]
--- OUTSIDE RECORDS SUMMARY | ~2020-01-18 | XMS | Encounter Summary ---
Demographics + + + | Address | [address] | | | [place] [address] | + + + | Home Phone | | + + + | Preferred Language | Unknown | + + + | Marital Status | Single | + + + | Congregational Affiliation | Unknown | + + + [...] Providers + +------+ + | Care Senior Environmental Technician Name | Role | Phone | [...] + + | 06/23/ | Emergency | [facility] | [place], | [facility] ([facility]) | | 2013 | | MED CTR EMERGENCY | Flaquito Kay MD [address] | (Primary Dx); | | | | CENTER [address] | [address] [place] | Polysubstance abuse | | | | [place], [place] | [place] [address] | | | | | [address] | [phone] | | | | | [phone] | | | +--------+ + + + [...] might be differe nt from the original. [facility] Marie Browne Emergency Department Encounter Note [address] [place] [address] PCP:Physician Unknown MAURA [phone] CHIEF COMPLAINT: Chief Complaint Patient presents with Depression Anxiety ED Room: ED03/ED03 HPI Marie Browne is a 43 y.o. male who presents to the Emergency Department for evaluation. The patient is from [place] and states he has felt increasingly concerned. [...] Clear Clear PH UA 5.5 5.0-8.0 Specific [place] >=1.030 1.001-1.030 PROTEIN UA Trace (*) Negative [...] were reviewed along with EMS notes and FDC record s if applicable. (See chart for [...] - 1.030 | [facility] | | | [place], | | | [facility] | | [...] + | [facility] | [address] | [place], [place] | [phone] | | [facility] | | [address] | | | - LABORATORY | | | | + + + + + | [facility] | [address] | [place], [place] | | | [facility] | | [address], [facility] | | | - LABORATORY | | [...] + | [facility] | [address] | [place], [place] | [phone] | | [facility] | | [address] | | | - LABORATORY | | | | + + + + + | [facility] | [address] | [place], [place] | | | [facility] | | [address], [facility] | | | - LABORATORY | | [...] [address] | [place] | [phone] | | [facility] | | [address] | | | - LABORATORY | | | | + + + + + | [facility] | [address] | [place] | | | [facility] | | [address] | | | - LABORATORY | | [...] + | [facility] | [address] | [place] | [phone] | | [facility] | | [address] | | | - LABORATORY | | | | + + + + + | [facility] | [address] | [place], [place] | | | [facility] | | [address] [place] [address] | | | - LABORATORY | | [...] [address] | [place] | [phone] | | [facility] | | [address] | | | - LABORATORY | | | | + + + + + | [facility] | [address] | [place] | | | [facility] | | [address], [facility] | | | - LABORATORY | | [...] mL/min/1.73m2 | [facility] [place] | | | [place] | RATE,ESTIMATED | | MEDICAL | | | | mL/min/1.99v8Nsce than | | CENTER - | | [...] | 9.4 | 8.3 - 10.5 | [facility] | | | | | mg/dL | [...] + | [facility] | [address] | [place] | [phone] | | [facility] | | [address] | | | - LABORATORY | | | | + + + + + | [facility] | [address] | [place] | | | [facility] | | [id number] | | | - LABORATORY | | [...] | | | Cells | | | [facility] | | | | | [...] + | [facility] | [address] | [place] | [phone] | | [facility] | | [address] | | | - LABORATORY | | | | + + + + + | [facility] | [address] | [place], [place] | | | [facility] | | [address], [facility] | | | - LABORATORY | | [...]
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
--- OUTSIDE RECORDS SUMMARY | ~2020-01-18 | XMS | Encounter Summary ---
Demographics + + + | Address | [address] | | | [place] [address] | + + + | Home Phone [...] + + + | Author | [facility] | | | and [place] | + + + | Organization | [facility] | | | [...] Team Providers + +------+ + | Care Stationary Equipment Mechanic Name | Role | Phone | + +------+ + PCP | Unavailable | + +------+ + Encounter Details +--------+ + + + + | Date | Type | Department | Care Team | Description | +--------+ + + + + | 08/11/ | Hospital | [facility] | | | | 2008 | Encounter | MED CTR MP INTRA OP | | | | | | [address] | | | | | | [place] | | | | | | [address] | | | | | | [phone] | | | +--------+ + + + [...]
--- OUTSIDE RECORDS SUMMARY | ~2020-01-18 | XMS | Encounter Summary ---
Demographics + + + | Address | [address] | | | [place] [address] | + + + | Home Phone | | + + + | Preferred Language | Unknown | + + + | Marital Status | Single | + + + | Jew Affiliation | Unknown | + + + | Race | Unknown | + + + | Ethnic Group | Unknown | + + + Author + + + | Author | [facility] | | | and [place] | + + + | Organization | [facility] | | | [...] Providers + +------+ + | Care Hand Stonecutter Name | Role | Phone | + +------+ + PCP | Unavailable | + +------+ + Encounter Details +--------+ + + + + | Date | Type | Department | Care Team | Description | +--------+ + + + + | 03/11/ | Hospital | [facility] | | | | 2007 | Encounter | MED CTR XRAY [address] | | | | | | [address] | | | | | | [place] [address] | | | | | | [phone] | | | +--------+ + + + [...]
--- OUTSIDE RECORDS SUMMARY | ~2020-01-18 | XMS | Encounter Summary ---
Demographics + + + | Address | [address] | | | [place] [address] | + + + | Home Phone | | + + + | Preferred Language | Unknown | + + + | Marital Status | Single | + + + | Congregation Affiliation | Unknown | + + + [...] Team Providers + +------+ + | Care Chief Medical Director Name | Role | Phone | + +------+ + PCP | Unavailable | + +------+ + Encounter Details +--------+ + + + + | Date | Type | Department | Care Team | Description | +--------+ + + + + | 08/06/ | Hospital | [facility] | | | | 2008 | Encounter | MED CTR XRAY [address] | | | | | | [address] | | | | | | [place] [address] | | | | | | [phone] | | | +--------+ + + + [...]
--- OUTSIDE RECORDS SUMMARY | ~2020-01-18 | XMS | Encounter Summary ---
Demographics + + + | Address | [address] | | | [place] [address] | + + + | Home Phone | | + + + | Preferred Language | Unknown | + + + | Marital Status | Single | + + + | Uatsdin Affiliation | Unknown | + + + [...] Team Providers + +------+ + | Care Rubber Stamps And Dies Supervisor Name | Role | Phone | + +------+ + PCP | Unavailable | + +------+ + Encounter Details +--------+ + + + + | Date | Type | Department | Care Team | Description | +--------+ + + + + | 11/14/ | Hospital | [facility] | | | | 2006 | Encounter | MED CTR XRAY [address] | | | | | | [address] | | | | | | [place] [address] | | | | | | [phone] | | | +--------+ + + + [...]
--- OUTSIDE RECORDS SUMMARY | ~2020-01-18 | XMS | Encounter Summary ---
Demographics + + + | Address | [address] | | | [place] [address] | + + + | Home Phone | | + + + | Preferred Language | Unknown | + + + | Marital Status | Single | + + + | Lutheran Affiliation | Unknown | + + + | Race | Unknown | + + + | Ethnic Group | Unknown | + + + Author + + + | Author | [facility] | | | and [place] | + + + | Organization | [facility] [...] Team Providers + +------+ + | Care Application Development Project Manager Name | Role | Phone | + +------+ + PCP | Unavailable | + +------+ + Encounter Details +--------+ + + + + | Date | Type | Department | Care Team | Description | +--------+ + + + + | 09/16/ | Hospital | [facility] | | | | 2008 | Encounter | MED CTR XRAY [address] | | | | | | [address] | | | | | | [place] [address] | | | | | | [phone] | | | +--------+ + + + [...]
--- OUTSIDE RECORDS SUMMARY | ~2020-01-18 | XMS | Encounter Summary ---
Demographics + + + | Address | [address] | | | [place] [address] | + + + | Home Phone | | + + + | Preferred Language | Unknown | + + + | Marital Status | Single | + + + | Lutheran Affiliation | Unknown | + + + | Race | Unknown | + + + | Ethnic Group | Unknown | + + + Author + + + | Author | [facility] | | | and [place] | + + + | Organization | [facility] | | | [...] Team Providers + +------+ + | Care Wire Loop Machine Operator Name | Role | Phone | + +------+ + PCP | Unavailable | + +------+ + Encounter Details +--------+ + + + + | Date | Type | Department | Care Team | Description | +--------+ + + + + | 11/12/ | Hospital | [facility] | | | | 2011 | Encounter | MED CTR EMERGENCY | | | | | | CENTER [address] | | | | | | [place] | | | | | | [address] | | | | | | [phone] | | | +--------+ + + + [...] Fidel Tejeda MD Emergency Medicine JOB #: [id number] EXT JOB #:[id number] EDITED: 11/15/2011 06:28 Fidel Coleman G - 11/13/2011 6:24 PM PDTDATE: 11/13/2011 HISTORY OF PRESENT ILLNESS: The patient is a 41-year-old gentleman who entered our emergen [facility] ent at [facility] on November 12 at approximately 1918, and [...] tobacco. He is here accompanied by his [facility] er. PHYSICAL EXAMINATION VITAL SIGNS: Blood [...] Fidel Tejeda MD Emergency Medicine JOB #: [id number] EXT JOB #:[id number] EDITED: 11/14/2011 14:03 documented in this encounter [...] - 1.030 | [facility] | | | [place], | | | [facility] | | [...] + | [facility] | [address] | [place], [place] | [phone] | | [facility] | | [address] | | | - LABORATORY | | | | + + + + + | [facility] | [address] | [place], [place] | | | [facility] | | [address] | | | - LABORATORY [...] + | [facility] | [address] | [place], [place] | [phone] | | [facility] | | [address] | | | - LABORATORY | | | | + + + + + | [facility] | [address] | [place], [place] | | | [facility] | | [address], [facility] | | | - [...] + | [facility] | [address] | [place] | [phone] | | [facility] | | [address] | | | - LABORATORY | | | | + + + + + | [facility] | [address] | [place], [place] | | | [facility] | | [address] | | | - LABORATORY [...] | | Protein | | | [facility] | | | | | | MEDICAL [...] + | [facility] | [address] | [place], [place] | [phone] | | [facility] | | [address] | | | - LABORATORY | | | | + + + + + | [facility] | [address] | [place], [place] | | | [facility] | | [address] [place] [address] | | | - LABORATORY | | [...] | | Neutrophils | | | [facility] | | | | | | MEDICAL [...] + | [facility] | [address] | [place] | [phone] | | [facility] | | [address] | | | - LABORATORY | | | | + + + + + | [facility] | [address] | [place], [place] | | | [facility] | | [address] [place] [address] | | | - LABORATORY | | | | + + + + + US Renal Limited (11/13/2011 6:24 PM PDT) + + | Specimen | + + | | + + + + + | Narrative | Performed At | + + + | [facility] Diagnostic Imaging Department | [facility] | | [address] [facility] | [facility] | | RENAL ULTRASOUND: 11/13/2011 | DIA [...] | | 08:59 Transcribed Date/Time: 11/14/2011 09:25 Methods Time Analyst: | | | <Electronically Signed by Adilson Yi MD> 11/14/11 1158 | | + + + + + | Procedure Note | + + | Steven, Rad Conversion - 09/03/2013 11:08 AM [facility] | | Diagnostic Imaging Department [address] [place] [address] | | RENAL ULTRASOUND: 11/13/2011 CLINICAL HISTORY: [...] 08:59 | |Transcribed Date/Time: 11/14/2011 09:25 | |Methods Time Analyst: | |<Electronically Signed by Adilson Yi MD> [...] Performed At | + + + | [facility] Diagnostic Imaging Department | [place] | | [address] | [place] | | ENHANCED CT ABDOMEN AND PELVIS | [facility] | | 11/13/2011, 2205 HOURS CLINICAL HISTORY: [...] STAFF BY THE | | | [facility] RADIOLOGIST ON 11/13/2011, AT 2237 HOURS. Dictated | | | Date/Time: 11/14/2011 09:13 Transcribed Date/Time: 11/14/2011 | | | 09:24 Methods Time Analyst: <Electronically Signed by Kirk Yates | | | MD Chandrakant> 11/14/11 2240 | | + + + + + | Procedure Note | + + | Steven, Rad Conversion - 09/03/2013 11:08 AM [facility] | | Diagnostic Imaging Department | | [address] [facility] | | | | | | | [...] ER STAFF BY | | [facility] ON 11/13/2011, AT 2237 HOURS. | | | | Dictated Date/Time: 11/14/2011 09:13 | | Transcribed Date/Time: 11/14/2011 09:24 | | Methods Time Analyst: | | <Electronically Signed by Kirk Stallings MD> 11/14/11 2240 | + + + +---------+ + + | Performing | Address | City/State/Zipcode | Phone Number | | Organization | | | | + +---------+ + + | [place] | | | | | [facility] | | | | + +---------+ + + documented in this encounter Visit Diagnoses Not on filedocumented in this encounter"
[~2020-01-18 07:33] MED LIST changes: +NORCO 7.5-3251 EACH PO
--- OUTSIDE RECORDS SUMMARY | 2020-01-18 07:36 | XMS ---
PreManage Notification: CECILIO CROSS Security House Steward/Stewardess Events 1 event(s) in the past 18 months Most recent security events: Elopement at [facility] 10/07/2018 18:55 - Other Details: PATIENT LWBS- CRITERIA MET - Group Notification - 6 ED Visits in 6 Months - - Has Care Guidelines - - 3 Facilities in 90 Days - - 2 Visits in 30 Days CARE PROVIDERS DEANDRE MCCRARY [facility] 02/03/2018-Current PHONE: [phone] [facility]: Health Service 07/21/2018-Current PHONE: [phone] STEFFEN BENSON [facility] 12/14/2019-Current PHONE: [phone] [facility] Internal Medicine 09/24/2018-[facility] - [place] PHONE: [phone] Guidelines Source: [employer] [facility] [place] Guidelines Date: 10/13/2018 Care Coordination: Currently engaged in mental health services with [employer]T\[facility]; Please contact [employer] with mental health concerns.\T\[facility]; [phone]. Care History Medical/Surgical 12/21/2019 [facility] - [facility] IS UNABLE TO CONTACT PATIENT- PATIENT DOES NOT HAVE AN ADDRESS AND OR PHONE NUMBER LISTED. - PLEASE PROVIDE [facility] CONTACT NUMBER TO PATIENT- [phone]. 12/14/2019 [facility] Care Recommendation: - PLEASE REVIEW PDMP ON THE [place]ERN[place] - USE EXTREME CAUTION IN GIVING NARCOTICS. - Avoid Discharge Narcotic prescriptions if at all possible. Physician discretion. E.D. VISIT COUNT (12 MO.) 1 [facility] 1 [facility] 1 [facility] T[facility] NOTE: Visits indicate total known visits. ED/UCC VISIT TRACKING (12 MO.) 01/18/2020 07:34 [facility] TYPE: Emergency COMPLAINT: - SKIN PROBLEM, FEVER [facility]2019 [facility] Emergency COMPLAINT: - WEAKNESS DIAGNOSES: - Cervical myelopathy 12/24/2019 16:16 [facility] TYPE: Emergency DIAGNOSES: - Other cervical disc displacement, high cervical region - Numbness - Extremity Weakness - Other symptoms and signs involving the musculoskeletal system 12/23/2019 12:55 [facility] [place] TYPE: Emergency COMPLAINT: - NUMBNESS DIAGNOSES: - Essential (primary) hypertension - Allergy status to other drugs, medicaments and biological sub - Anxiety disorder, unspecified - Allergy status to other antibiotic agents status - Anesthesia of skin - Other cervical disc degeneration, high cervical region - Nicotine dependence, unspecified, uncomplicated 12/17/2019 16:54 [facility] TYPE: Emergency COMPLAINT: - NUMBNESS/WEAKNESS DIAGNOSES: - Nicotine dependence, unspecified, uncomplicated - Radiculopathy, cervical region - Allergy status to other drugs, medicaments and biological sub - Essential (primary) hypertension - Anesthesia of skin - Allergy status to other antibiotic agents status 12/11/2019 13:06 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 - Allergy status to [...] drugs, medicaments and biological sub - Other fdc (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 therapy - Unspecified psychosis not due to a substance or known physiol - Encounter for other general examination - Allergy status to narcotic agent status - Personal history of urinary calculi - Essential (primary) hypertension 03/11/2019 22:05 [facility] [place] TYPE: Emergency DIAGNOSES: - leg pain - Paranoid schizophrenia INPATIENT VISIT TRACKING (12 MO.) 12/25/2019 12:14 [facility] Felicia [facility] TYPE: Neuro Surgery COMPLAINT: - WEAKNESS DIAGNOSES: - Disease of spinal cord, unspecified - Cervical myelopathy [id number]
[2020-01-18] MEDS ORDERED: SUBOXONE 8 MG-1 EAC1 SL (07:43)
[2020-01-18] MEDS ORDERED: TYLENOL325 M1 PO (07:43)
[2020-01-18] MEDS ORDERED: LIDOCAINE1 EAC1 TOP (07:44)
[2020-01-18] MEDS ORDERED: OMEPRAZOLE20 MG PO (07:45)
[2020-01-18] MEDS ORDERED: LISINOPRIL10 MG PO (07:45)
[2020-01-18] MEDS ORDERED: MELATONIN3 M3 PO (07:45)
[2020-01-18] MEDS ORDERED: SENNA8.6 MG PO (07:46)
[2020-01-18] MEDS ORDERED: LYRICA50 MG PO (07:46)
[2020-01-18] MEDS ORDERED: RISPERDAL1 MG PO (07:46)
[2020-01-18] MEDS ORDERED: TIZANIDINE HCL4 M1 PO (07:47)
[2020-01-18] MEDS ORDERED: GENTLE LAXATIVE10 MG PR (07:47)
[2020-01-18] MEDS ORDERED: BISACODYL5 MG PO (07:48)
[2020-01-18] MEDS ORDERED: CYCLOBENZAPRINE10 MG PO (07:48)
[2020-01-18] MEDS ORDERED: ZANAFLEX4 M1 PO (08:51)
== END 2020-01-18 09:12 | disposition home or self-care (01) ==
LOC: ED 07:33
DX: G44.209 Tension-type headache, unspecified, not intractable (principal); T14.8XXA Other injury of unspecified body region, initial encounter; F41.9 Anxiety disorder, unspecified; I10 Essential (primary) hypertension; F17.200 Nicotine dependence, unspecified, uncomplicated; Z88.8 Allergy status to other drugs, medicaments and biological substances; Z88.1 Allergy status to other antibiotic agents; Z79.899 Other long term (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 therapy; X58.XXXA Exposure to other specified factors, initial encounter
CPT/HCPCS: 96372; 99283; J1885

== ENCOUNTER 2020-01-20 19:03 | Emergency (ER) | payer OTHER ==
[~2020-01-20] VITALS: Ht 177.8 cm; Wt 90.7 kg
--- OUTSIDE RECORDS SUMMARY | ~2020-01-20 | XMS | Encounter Summary ---
Demographics + + + | Address | [address] | | | [place] [address] | + + + | Home Phone | | + + + | Preferred Language | Unknown | + + + | Marital Status | Single | + + + | Sabianist Affiliation | Unknown | + + + | Race | Unknown | + + + | Ethnic Group | Unknown | + + + Author + + + | Author | [facility] | | | and [place] | + + + | Organization | [facility] | | | and [place] | + + + | Address | Unknown | + + + | Phone | Unavailable | + + + Support + + +---------+ + | Name | Relationship | Address | Phone | + + +---------+ + | Cheli Gomez | ECON | Unknown | | + + +---------+ + Care Team Providers + +------+ + | Care Pig Conveyor Operator Name | Role | Phone | + +------+ + PCP | Unavailable | + +------+ + Encounter Details +--------+ + + + + | Date | Type | Department | Care Team | Description | +--------+ + + + + | 04/07/ | [facility] | [facility] | | | 2013 | Encounter | [facility] | [address] | | | | | [address] | [facility] | | | | | [address] [place] | [place] [address] | | | | | [address] | [phone] | | | | | [phone] | | | +--------+ + + + + Social History + +-------+ +--------+------+ | Tobacco Use | Types | Packs/Day | Years | Date | | | | | Used | | + +-------+ +--------+------+ | Never Assessed | | | | | + +-------+ +--------+------+ + + + | Sex Assigned at | Date Recorded | | | | + + + | Not on file | | + + + documented as of this encounter Plan of Treatment Not on filedocumented as of this encounter Procedures + +--------+ + + + | Procedure Name | Priori | Date/Time | Associated Diagnosis | Comments | | | ty | | | | + +--------+ + + + | DRUGS OF ABUSE, | STAT | 04/07/2014 | | Results for this | | SCREEN, URINE | | 12:05 PM | | procedure are in the | | | | PDT | | results section. | + +--------+ + + + | CBC W/AUTO | STAT | 04/07/2014 | | Results for this | | DIFFERENTIAL | | 11:00 AM | | procedure are in the | | | | PDT | | results section. | + +--------+ + + + | TSH | STAT | 04/07/2014 | | Results for this | | | | 11:00 AM | | procedure are in the | | | | PDT | | results section. | + +--------+ + + + | ALCOHOL | STAT | 04/07/2014 | | Results for this | | | | 11:00 AM | | procedure are in the | | | | PDT | | results section. | + +--------+ + + + | ACETAMINOPHEN LEVEL | STAT | 04/07/2014 | | Results for this | | | | 11:00 AM | | procedure are in the | | | | PDT | | results section. | + +--------+ + + + | SALICYLATE LEVEL | STAT | 04/07/2014 | | Results for this | | | | 11:00 AM | | procedure are in the | | | | PDT | | results section. | + +--------+ + + + | COMPREHENSIVE | STAT | 04/07/2014 | | Results for this | | METABOLIC PANEL | | 11:00 AM | | procedure are in the | | | | PDT | | results section. | + +--------+ + + + | URINALYSIS WITH | STAT | 04/07/2014 | | Results for this | | MICROSCOPIC WITH | | 10:59 AM | | procedure are in the | | CULTURE IF INDICATED | | PDT | | results section. | + +--------+ + + + documented in this encounter Results Drugs of Abuse, Screen, Urine (04/07/2014 12:05 PM PDT) + +-------+ + + + | Component | Value | Ref Range | Performed | Pathologist | | | | | At | Signature | + +-------+ + + + | THC RESULT | POS | NEG ng/mL | EXTERNAL | | | | | | LAB | | + +-------+ + + + | Phencyclidi | NEG | NEG ng/mL | EXTERNAL | | | ne | | | LAB | | + +-------+ + + + | Cocaine | NEG | NEG ng/mL | EXTERNAL | | | | | | LAB | | + +-------+ + + + | Methampheta | POS | NEG ng/mL | EXTERNAL | | | mine | | | LAB | | + +-------+ + + + | Opiates | POS | NEG ng/mL | EXTERNAL | | | | | | LAB | | + +-------+ + + + | Amphetamine | POS | NEG ng/mL | EXTERNAL | | | s | | | LAB | | + +-------+ + + + | Benzodiazep | NEG | NEG ng/mL | EXTERNAL | | | lisa | | | LAB | | | Screen, | | | | | | Urine | | | | | + +-------+ + + + | TCA Scrn | NEG | NEG ng/mL | EXTERNAL | | | | | | LAB | | + +-------+ + + + | Methadone | NEG | NEG ng/mL | EXTERNAL | | | Screen, | | | LAB | | | Urine | | | | | + +-------+ + + + | Barbiturate | NEG | NEG ng/mL | EXTERNAL | | | s | | | LAB | | + +-------+ + + + | Oxycodone | NEG | NEG ng/mL | EXTERNAL | | | | | | LAB | | + +-------+ + + + | Propoxyphen | NEG | NEG ng/mL | EXTERNAL | | | e | | | LAB | | + +-------+ + + + | Buprenorphi | NEG | NEG ng/mL | EXTERNAL | | | ne | | | LAB | | + +-------+ + + + + + | Specimen | + + | | + + + +---------+ + + | Performing | Address | City/State/Zipcode | Phone Number | | Organization | | | | + +---------+ + + | EXTERNAL LAB | | | | + +---------+ + + Salicylate Level (04/07/2014 11:00 AM PDT) + +-------+ + + + | Component | Value | Ref Range | Performed | Pathologist | | | | | At | Signature | + +-------+ + + + | Salicylate | 3 | 3 - 20 mg/dL | EXTERNAL | | | Level | | | LAB | | + +-------+ + + + + + | Specimen | + + | | + + + +---------+ + + | Performing | Address | City/State/Zipcode | Phone Number | | Organization | | | | + +---------+ + + | EXTERNAL LAB | | | | + +---------+ + + Acetaminophen Level (04/07/2014 11:00 AM PDT) + +-------+ + + + | Component | Value | Ref Range | Performed | Pathologist | | | | | At | Signature | + +-------+ + + + | Acetaminoph | 2 | 10.0 - 20.0 | EXTERNAL | | | en, S | | ug/mL | LAB | | + +-------+ + + + + + | Specimen | + + | | + + + +---------+ + + | Performing | Address | City/State/Zipcode | Phone Number | | Organization | | | | + +---------+ + + | EXTERNAL LAB | | | | + +---------+ + + CBC w/ Auto Differential (04/07/2014 11:00 AM PDT) + +-------+ + + + | Component | Value | Ref Range | Performed | Pathologist | | | | | At | Signature | + +-------+ + + + | WBC | 8 | 4.6 - 10.5 | EXTERNAL | | | | | 1000/mm3 | LAB | | + +-------+ + + + | RBC | 5.23 | 4.36 - 5.83 | EXTERNAL | | | | | mil/mm3 | LAB | | + +-------+ + + + | HGB, | 15.9 | 13.1 - 17.4 | EXTERNAL | | | External | | g/dL | LAB | | + +-------+ + + + | HCT, | 47 | 39.0 - 51.9 % | EXTERNAL | | | External | | | LAB | | + +-------+ + + + | MCV | 90 | 82 - 96 fl | EXTERNAL | | | | | | LAB | | + +-------+ + + + | MCH | 30.4 | 27.7 - 32.3 pg | EXTERNAL | | | | | | LAB | | + +-------+ + + + | MCHC | 33.8 | 32.0 - 36.9 | EXTERNAL | | | | | g/dL | LAB | | + +-------+ + + + | RDW-CV | 14 | <=17.0 % | EXTERNAL | | | | | | LAB | | + +-------+ + + + | RDW-SD | 45.7 | 34.0 - 57.0 fL | EXTERNAL | | | | | | LAB | | + +-------+ + + + | Platelet | 320 | 150 - 450 | EXTERNAL | | | Count | | 1000/mm3 | LAB | | | Plasma | | | | | + +-------+ + + + | MPV | 10.4 | 9.4 - 12.4 FL | EXTERNAL | | | | | | LAB | | + +-------+ + + + | % Segmented | 71.9 | 42.0 - 76.0 % | EXTERNAL | | | | | | LAB | | | Neutrophils | | | | | + +-------+ + + + | % | 22.2 | 20.0 - 40.0 % | EXTERNAL | | | Lymphocytes | | | LAB | | + +-------+ + + + | % Monocytes | 5.5 | 3.0 - 13.0 % | EXTERNAL | | | | | | LAB | | + +-------+ + + + | % | 0.1 | 0.0 - 7.0 % | EXTERNAL | | | Eosinophils | | | LAB | | + +-------+ + + + | % Basophils | 0.3 | 0.0 - 2.0 % | EXTERNAL | | | | | | LAB | | + +-------+ + + + | Absolute | 5.75 | 2.80 - 7.70 | EXTERNAL | | | Neutrophils | | 1000/mm3 | LAB | | + +-------+ + + + | Absolute | 1.77 | 1.20 - 3.30 | EXTERNAL | | | Lymphocytes | | 1000/mm3 | LAB | | + +-------+ + + + | Absolute | 0.44 | 0.00 - 0.80 | EXTERNAL | | | Monocytes | | 1000/mm3 | LAB | | + +-------+ + + + | Absolute | 0.01 | 0.00 - 0.70 | EXTERNAL | | | Eosinophils | | 1000/mm3 | LAB | | + +-------+ + + + | Absolute | 0.02 | 0.00 - 0.20 | EXTERNAL | | | Basophils | | 1000/mm3 | LAB | | + +-------+ + + + | SLIDE | NO | | EXTERNAL | | | REVIEWED | | | LAB | | + +-------+ + + + + + | Specimen | + + | | + + + +---------+ + + | Performing | Address | City/State/Zipcode | Phone Number | | Organization | | | | + +---------+ + + | EXTERNAL LAB | | | | + +---------+ + + TSH (04/07/2014 11:00 AM PDT) + +-------+ + + + | Component | Value | Ref Range | Performed | Pathologist | | | | | At | Signature | + +-------+ + + + | TSH | 0.69 | 0.40 - 4.68 | EXTERNAL | | | | | mIU/L | LAB | | + +-------+ + + + + + | Specimen | + + | | + + + +---------+ + + | Performing | Address | City/State/Zipcode | Phone Number | | Organization | | | | + +---------+ + + | EXTERNAL LAB | | | | + +---------+ + + Comprehensive Metabolic Panel (04/07/2014 11:00 AM PDT) + +-------+ + + + | Component | Value | Ref Range | Performed | Pathologist | | | | | At | Signature | + +-------+ + + + | Sodium | 135 | 132 - 143 | EXTERNAL | | | | | mmol/L | LAB | | + +-------+ + + + | Potassium | 3.9 | 3.3 - 4.9 | EXTERNAL | | | | | mmol/L | LAB | | + +-------+ + + + | Cl | 100 | 95 - 108 mmol/L | EXTERNAL | | | | | | LAB | | + +-------+ + + + | CO2 | 29 | 23 - 34 mmol/L | EXTERNAL | | | | | | LAB | | + +-------+ + + + | Anion Gap | 6 | 7 - 16 | EXTERNAL | | | | | | LAB | | + +-------+ + + + | Calcium | 9.8 | 8.3 - 10.0 | EXTERNAL | | | | | mg/dL | LAB | | + +-------+ + + + | Glucose | 122 | 70 - 110 mg/dL | EXTERNAL | | | | | | LAB | | + +-------+ + + + | BUN, Bld | 9 | 5 - 26 mg/dL | EXTERNAL | | | | | | LAB | | + +-------+ + + + | Creatinine | 1.2 | 0.7 - 1.4 mg/dL | EXTERNAL | | | | | | LAB | | + +-------+ + + + | BUN/Creatin | 7.5 | 7.0 - 24.0 | EXTERNAL | | | ine Ratio | | RATIO | LAB | | + +-------+ + + + | GFR | 60 | >=60 | EXTERNAL | | | ESTIMATE | | mL/min/1.73m2 | LAB | | | (REF) | | | | | + +-------+ + + + | Bilirubin, | 0.8 | <=1.2 mg/dL | EXTERNAL | | | Total | | | LAB | | + +-------+ + + + | Protein, | 7.4 | 6.6 - 8.5 g/dL | EXTERNAL | | | Total | | | LAB | | + +-------+ + + + | Albumin | 4.3 | 3.0 - 4.5 g/dL | EXTERNAL | | | | | | LAB | | + +-------+ + + + | Alkaline | 90 | 33 - 151 U/L | EXTERNAL | | | Phosphatase | | | LAB | | + +-------+ + + + | ALT, | 23 | 16 - 63 U/L | EXTERNAL | | | External | | | LAB | | + +-------+ + + + | AST, | 12 | <=38 U/L | EXTERNAL | | | External | | | LAB | | + +-------+ + + + + + | Specimen | + + | | + + + +---------+ + + | Performing | Address | City/State/Zipcode | Phone Number | | Organization | | | | + +---------+ + + | EXTERNAL LAB | | | | + +---------+ + + Ethanol (04/07/2014 11:00 AM PDT) + +-------+ + + + | Component | Value | Ref Range | Performed | Pathologist | | | | | At | Signature | + +-------+ + + + | Alcohol, | 10 | <=10 mg/dL | EXTERNAL | | | Ethyl (B) | | | LAB | | + +-------+ + + + + + | Specimen | + + | | + + + +---------+ + + | Performing | Address | City/State/Zipcode | Phone Number | | Organization | | | | + +---------+ + + | EXTERNAL LAB | | | | + +---------+ + + Urinalysis with Microscopic with Culture if Indicated (04/07/2014 10:59 AM PDT) + + + + + + | Component | Value | Ref Range | Performed | Pathologist | | | | | At | Signature | + + + + + + | Source | VOIDED | | EXTERNAL | | | | | | LAB | | + + + + + + | Clarity, | CLEAR | CLEAR | EXTERNAL | | | Urine | | | LAB | | + + + + + + | Color, | YELLOW | YELLOW | EXTERNAL | | | Urine | | | LAB | | + + + + + + | Specific | 1.015 | 1.005 - 1.030 | EXTERNAL | | | [place], | | | LAB | | | Urine | | | | | + + + + + + | pH, Urine | 6 | 5.0 - 7.0 pH | EXTERNAL | | | | | | LAB | | + + + + + + | Leukocyte | 25 | NEGATIVE /uL | EXTERNAL | | | Esterase, | | | LAB | | | Urine | | | | | + + + + + + | Nitrite, | NEGATIVE | NEGATIVE | EXTERNAL | | | Urine | | | LAB | | + + + + + + | Protein, | NEGATIVE | NEGATIVE mg/dL | EXTERNAL | | | Urine | | | LAB | | + + + + + + | Glucose, | NORMAL | NORMAL mg/dL | EXTERNAL | | | Urine | | | LAB | | + + + + + + | Reducing | NOT REQUIRED | NEGATIVE | EXTERNAL | | | Substance, | | | LAB | | | UA, POC | | | | | + + + + + + | Ketones, | NEGATIVE | NEGATIVE mg/dL | EXTERNAL | | | Urine | | | LAB | | + + + + + + | Urobilinoge | NORMAL | NORMAL mg/dL | EXTERNAL | | | n, Urine | | | LAB | | + + + + + + | Bilirubin, | NEGATIVE | NEGATIVE mg/dL | EXTERNAL | | | Urine | | | LAB | | + + + + + + | Blood, | NEGATIVE | NEGATIVE /uL | EXTERNAL | | | Urine | | | LAB | | + + + + + + | White Blood | 3-5 | </= 5 /HPF | EXTERNAL | | | Cells, | | | LAB | | | Urine | | | | | + + + + + + | RBC | NONE SEEN | </= 5 PER HPF | EXTERNAL | | | | | | LAB | | + + + + + + | Bacteria, | RARE | NONE SEEN /HPF | EXTERNAL | | | UA | | | LAB | | + + + + + + | Culture | NO | | EXTERNAL | | | Indicated | | | LAB | | + + + + + + | Squamous | RARE | /LPF | EXTERNAL | | | Epithelial | | | LAB | | | Cells, | | | | | | Urine | | | | | + + + + + + + + | Specimen | + + | | + + + +---------+ + + | Performing | Address | City/State/Zipcode | Phone Number | | Organization | | | | + +---------+ + + | EXTERNAL LAB | | | | + +---------+ + + documented in this encounter Visit Diagnoses Not on filedocumented in this encounter"
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
--- OUTSIDE RECORDS SUMMARY | ~2020-01-20 | XMS | Encounter Summary ---
Demographics + + + | Address | [address] | | | [place] [address] | + + + | Home Phone | | + + + | Preferred Language | Unknown | + + + | Marital Status | Single | + + + | Christian Affiliation | Unknown | + + + | Race | Unknown | + + + | Ethnic Group | Unknown | + + + Author + + + | Author | [facility] | | | and [place] | + + + | Organization | [facility] | | | and [place] | + [...] Team Providers + +------+ + | Care Locomotive Driver Name | Role | Phone | + +------+ + PCP | Unavailable | + +------+ + Encounter Details +--------+ + + + + | Date | Type | Department | Care Team | Description | +--------+ + + + + | 07/20/ | Hospital | [facility] | Huber Ivory, | | | 2009 | Encounter | MEDICAL CENTER | MD Zackary DA SILVA | | | | | CLINICAL DECISION | [address] [place], | | | | | UNIT [facility] | [place] [address] | | | | | [place] | [phone] | | | | | [address] | | | | | | [phone] | | | +--------+ + + + [...] + +--------+ + + + | XR FINGER RIGHT 2 + | Routin | 07/14/2009 | | Results for this | | VW | e | 5:42 PM | | procedure are in the | | | | PST | | results section. | + +--------+ + + + documented in this encounter Results XR Finger Right 2 + Vw (07/14/2009 5:42 PM PST) + + | Specimen | + + | | + + + + + | Narrative | Performed At | + + + | [facility] | | | [facility] [address] | | | , | | | [id number]/RADIOLOGY Patient Name: MARIE BROWNE Date of : | | | 1970 Medical Record: [id number] Account: [id number] | | | PRO// Exam Date/Time: 07/14/2009 05:17 P | | | Ordering Provider: HUBER IVORY Order Detail: [id number] / / | | | HDI Exam Description: XR FINGER(S) RIGHT | | | | | | RIGHT FINGERS 07/14/2009 HISTORY Nerve and tendon repair, right | | | index finger. TECHNIQUE AP right hand with oblique lateral films | | | of the right second digit. FINDINGS Demonstrated is diffuse soft | | | tissue swelling of the second digit, with laceration of the soft | | | tissues along the radial aspect of the middle phalanx, with small | | | flecks of bone off the radial surface of the distal shaft of the | | | middle phalanx. Osseous structures are otherwise intact. | | | IMPRESSION 1. Laceration to the radial aspect of the second middle | | | phalanx, extending down to the edge of the radial distal end of | | | the middle phalanx with adjacent small bone fracture, small bone | | | fragments. There may also be a tiny foreign body in the wound, | | | versus faint bone fragment. 2. Diffuse soft tissue swelling | | | about the second digit. Read by ROHNDA FLETCHER MD | | | 07/15/2009 07:41 A Electronically Signed by RHONDA FLETCHER MD | | | 07/15/2009 05:50 P A | | | 05:00 P JOON/[id number]/ cc: MD RHONDA AGUIAR | | | MD DAMON FLETCHER DO | | + + + + + | Procedure Note | + + | Dann Harris Conversion - 02/22/2019 5:05 PM PDT | | [facility] | | [facility] [address] | | , | | | | [id number]/RADIOLOGY | | | | Patient Name: MARIE BROWNE | | Date of : 1970 | | Medical Record: [id number] | | Account: [id number] | | PRO// | | | | | | Exam Date/Time: 07/14/2009 05:17 P | | Ordering Provider: HUBER IVORY | | Order Detail: [id number] / / HDI | | Exam Description: XR FINGER(S) RIGHT | | | | RIGHT FINGERS 07/14/2009 | | | | HISTORY | | Nerve and tendon repair, right index finger. | | | | TECHNIQUE | | AP right hand with oblique lateral films of the right second digit. | | | | FINDINGS | | Demonstrated is diffuse soft tissue swelling of the second digit, with | | laceration of the soft tissues along the radial aspect of the middle | | phalanx, with small flecks of bone off the radial surface of the distal | | shaft of the middle phalanx. Osseous structures are otherwise intact. | | | | IMPRESSION | | 1. Laceration to the radial aspect of the second middle phalanx, | | extending down to the edge of the radial distal end of the middle | | phalanx with adjacent small bone fracture, small bone fragments. | | There may also be a tiny foreign body in the wound, versus faint bone | | fragment. | | 2. Diffuse soft tissue swelling about the second digit. | | | | | | | | Read by | | RHONDA FLETCHER MD 07/15/2009 07:41 A | | Electronically Signed by | | RHONDA FLETCHER MD 07/15/2009 05:50 P | | | | A | | P | | [facility]/[id number]/ | | cc: HUBER IVORY MD | | RHONDA FLETCHER MD | | DAMON WOODSON DO | + + documented in this encounter Visit Diagnoses Not on filedocumented in this encounter"
--- OUTSIDE RECORDS SUMMARY | ~2020-01-20 | XMS | Encounter Summary ---
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 | | | Sent here by ED doctor at [facility] to see Dr. Smalls. | + + + | Numbness | bilateral arms | + + + Encounter Details +--------+ + + + + | Date | Type | Department | Care Team | Description | +--------+ + + + + | 12/23/ | Emergency | [facility] | Christy Benitez, | Herniation of | | 2019 - | | MEDICAL CENTER | DO [address] | intervertebral disc | | | | EMERGENCY CENTER | [place] [address] | of high cervical | | 12/24/ | | [address] | [phone] | region (Primary Dx); | | 2019 | | [place], [place] | | Bilateral arm | | | | [address] | | weakness | | | | [phone] | | | +--------+ + + + + Social History + +-------+ +--------+------+ | Tobacco Use | Types | Packs/Day | Years | Date | | | | | Used | | + +-------+ +--------+------+ | Current Every Day | | | 5 | | | Smoker | | | | | + +-------+ +--------+------+ + +------+---+---+ | Smokeless Tobacco: | Chew | | | | Current User | | | | + +------+---+---+ + + +---------+ + | Alcohol Use | Drinks/Week | oz/Week | Comments | + + +---------+ + | Yes | 0 Standard drinks | 0.0 | occ | | | or equivalent | | | + + +---------+ + + + + | Sex Assigned at | Date Recorded | | | | + + + | Not on file | | + + + documented as of this encounter Last Filed Vital Signs + + + + + | Vital Sign | Reading | Time Taken | Comments | + + + + + | Blood Pressure | 159/110 | 12/25/2019 8:27 AM | | | | | PDT | | + + + + + | Pulse | 69 | 12/25/2019 8:27 AM | | | | | PDT | | + + + + + | Temperature | 36.2 C (97.2 F) | 12/24/2019 4:18 PM | | | | | PDT | | + + + + + | Respiratory Rate | 18 | 12/25/2019 8:27 AM | | | | | PDT | | + + + + + | Oxygen Saturation | 98% | 12/25/2019 8:27 AM | | | | | PDT | | + + + + + | Inhaled Oxygen | - | - | | | Concentration | | | | + + + + + | Weight | 91.7 kg (202 lb 2.6 | 12/24/2019 4:18 PM | | | | oz) | PDT | | + + + + + | Height | 177.8 cm (5' 10") | 12/24/2019 4:18 PM | | | | | PDT | | + + + + + | Body Mass Index | 29.01 | 12/24/2019 4:18 PM | | | | | PDT | | + + + + + documented in this encounter Medications at Time of Discharge + + + +---------+ + + | Medication | Sig | Dispensed | Refills | Start | End Date | | | | | | Date | | + + + +---------+ + + | fluticasone | 1 spray by Nasal | 16 g | 0 | 04/10/20 | | | (FLONASE) 50 | route 2 times daily. | | | 15 | | | mcg/nasal spray | | | | | | + + + +---------+ + + | GuaiFENesin | Take by mouth. | | 0 | | | | (MUCINEX CHEST | | | | | | | CONGESTION CHILD PO) | | | | | | + + + +---------+ + + | | Take 1 tablet by | | 0 | | | | HYDROcodone-acetamin | mouth every 6 hours | | | | | | ophen (NORCO) 5-325 | as needed. | | | | | | mg per tablet | | | | | | + + + +---------+ + + | naproxen | Take 250 mg by mouth | | 0 | | | | (NAPROSYN) 250 mg | 2 times daily (with | | | | | | tablet | breakfast & | | | | | | | dinner). | | | | | + + + +---------+ + + | omeprazole | Take 20 mg by mouth | | 0 | | | | (PRILOSEC) 20 mg | every morning | | | | | | capsule | (before breakfast). | | | | | + + + +---------+ + + documented as of this encounter ED Casandra Norton RN - 12/25/2019 8:44 AM PDTReport to [facility]. Casandra Manzanares RN - 12/25/2019 7:39 AM PDTAssumed care of pt from Ngihat WADE. Electronically signed by Casandra Gaviria RN at 7:40 AM Ryan Morgan RN - 12/25/2019 1:32 AM PDTPt resting quietly. Electro nically signed by Ryan Carrillo RN at 12/25/2019 1:32 AM Ryan Morgan RN - 0 10:03 PM PDTPt awake alert. 02 sat 98, pulse 78 ally Garnica Technologist - 12/24/2019 7:47 PM PDTAMR called carmita ruiz ACLS transfer to [facility].Electronically signed by Lisa Garcesologist at 020 7:48 PM Andre Lester RN - 12/24/2019 5:08 PM PDTRN requestioned pt about timel ine and who sent pt to see Dr. Patton. Pt states has been to [place] ED 3 times this week alone for same problem. States ER provider there told him he has already sent referrals to [facility] and [facility] for neurosurgery. Pt states has called both offices but was told the y couldn't schedule an appointment until they see a referral and have insurance approval. P t states he has talked with his insurance who has told him he can get an appointment with ne urosurgery. Pt states went to [facility] Neurosurgery office today with disk and paperwork and office workers told him they couldn't accept the disk without prior authorization. Pt s amando he then drove to ER at [facility] so he could be seen by Dr. Smalls. Electronically rob d by Andre Rodriguez RN at 12/24/2019 5:18 PM PDTAndre Rodriguez RN - 12/24/2019 4:40 P M PDTPt had MRI yesterday in [place] ER and was told to come to [facility] for emergent surgery with Dr. Patton. Pt states has hx of cervical fusions x2 done in [facility]. Pt s tates having worsening weakness in bilateral upper arm with numbness. Christy Stockton DO - 12/24/2019 4:[address] [facility] Department of Emergency Medicine 12/24/2019 4:26 PM PDT No flowsheet data found. History of Present Illness Patient Identification Cecilio Browne is a 49 y.o. male. Patient information was obtained from patient History/Exam limitations: none. Patient presented to the Emergency Department by: Car Chief Complaint Chief Complaint Patient presents with Extremity Weakness known issue with cervical spine from MRI done at [facility]. Sent here by ED doctor at [facility] to see Dr. Smalls. Numbness bilateral arms 49 y.o. male with history of numbness in bilateral arms particularly in his hands for the p ast 3 weeks. Progressively worsening course since that time. He has been waking up choking i n the night for the past 3 or 4 months. He feels like he can't swallow properly quite frequ ently now. He hands and forearms are very weak off and on as well and he states it has at t imes seemed very severe. He is scared that he will be paralyzed. He describes moderate 7/10 constant aching neck pain. He was sent here by [place] [facility] to see the neurosurgeon after MRI showed a christy re disc herniation at C3-C4. He spoke with Dr. Patton but did not document the details of eir conversation. The MRI was with and without contrast. Pt does have a history fo prior cervical fusion at a lower level. His prior neurosurgeons Dr. Lugo and Dr. Ramirez are now retired but used to work out of [place]. The patient reports movement worsens symptoms, and pain pills only slightly improves sympto ms. Care prior to arrival consisted of hydrocodone, with some relief. Patient denies fever, nausea, vomiting, shortness of breath. MRI report from yesterday: "At C3-C4 there is a mass posterior to the disc space in the C3 vertebral body. It follows the signal of disc on all sequences, and does not enhance, consi stent with a very large disc extrusion. This causes significant effacement of the cord. Th e cord measures 4 mm in AP diameter, compared to the level above where it measures 8 mm. Th e cord has smudgy intermediate signal immediately adjacent to the disc material. Uncoverteb ral hypertrophy causes mild to moderate narrowing of the bilateral neural foramina." PCP: No Physician on file History reviewed. No pertinent past medical history. Past Surgical History: Procedure Laterality Date c spine fussion CERVICAL FUSION LITHOTRIPSY SHOULDER SURGERY VASECTOMY Prior to Admission medications Medication Sig Taking? fluticasone (FLONASE) 50 mcg/nasal spray 1 spray by Nasal route 2 times daily. GuaiFENesin (MUCINEX CHEST CONGESTION CHILD PO) Take by mouth. HYDROcodone-acetaminophen (NORCO) 5-325 mg per tablet Take 1 tablet by mouth every 6 hours as needed. Allergies Allergen Reactions Cephalexin Anaphylaxis Swallowing difficulty / sob Haloperidol Anaphylaxis Sob/ throat swelling Hydrochlorothiazide Vertigo Dizziness, sweating Penicillins Rash There is no immunization history on file for this patient. Social History Socioeconomic History Marital status: Single Spouse name: Not on file Number of children: Not on file Years of education: Not on file Highest education level: Not on file Occupational History Not on file Social Needs Financial resource strain: Not on file Food insecurity Worry: Not on file Inability: Not on file Transportation needs Medical: Not on file Non-medical: Not on file Tobacco Use Smoking status: Current Every Day Smoker Years: 5.00 Smokeless tobacco: Current User Types: Chew Substance and Sexual Activity Alcohol use: Yes Alcohol/week: 0.0 standard drinks Comment: occ Drug use: Yes Types: Marijuana, Methamphetamines Comment: hx of oxycontin use Sexual activity: Not on file Lifestyle Physical activity Days per week: Not on file Minutes per session: Not on file Stress: Not on file Relationships Social connections Talks on phone: Not on file Gets together: Not on file Attends scientology service: Not on file Active member of club or organization: Not on file Attends meetings of clubs or organizations: Not on file Relationship status: Not on file Intimate partner violence Fear of current or ex partner: Not on file Emotionally abused: Not on file Physically abused: Not on file Forced sexual activity: Not on file Other Topics Concern Not on file Social History Narrative Not on file History reviewed. No pertinent family history. Review of Systems Constitutional: Negative for fever, chills Pos for fatigue Eyes: Negative for vision changes or photophobia Nose: Negative for congestion Throat: Negative for sore throat or swelling Positive for choking episodes in the night and occasional difficulty swallowing. CV/Resp: Negative for chest pain Negative for [id number] Negative for cough GI: Negative for abdominal pain Negative for nausea Negative for vomiting Negative for constipation Negative for diarrhea Negative for black or bloody stools : Negative for urinary frequency Negative for pain with urination Musculoskeletal: Negative for back pain Pos for neck pain or stiffness. Skin: Negative for rash Neuro/Psych: Negative for headache Pos for arm weakness and numbness All other systems reviewed and negative except as noted. Physical Exam Temp: 36.2 C (97.2 F) Pulse: 98 SpO2: 100 % Resp: 24 BP: (!) 184/102 Vital signs interpretation:elevated blood pressure General: Alert, in no apparent distress HEENT: Normal inspection, PERRLA, non-icteric, EOM's intact Ears normal Nose normal Pharynx normal, mucous membranes are moist. Neck: Normal inspection Moderate tenderness over C3-C5 but no overlying skin abn's Cardiovascular: Rate normal rhythm normal No murmurs, clicks or rubs Heart sounds are easily auscultated Chest non-tender to palpation Respiratory: Normal work of breathing Breath sounds equal bilaterally No rales, wheezing or rhonchi Abdomen: Soft, non-tender, non-distended Normal bowel sounds No guarding or rebound No masses. No pulsatile masses. Back: Normal inspection, no CVA tenderness or spinal tenderness Skin: Color normal Warm and dry No rash Extremities: No swelling or pitting edema. No calf tenderness or palpable cords. Symmetric radial pulses bilaterally. Extremities are warm and well perfused. Neuro: Alert, no AMS, speech is clear. CN II-XII intact Pt is able to stand and ambulate. He is able to move his arms fairly normally without im mediate appreciable weakness. On more detailed testing however: Severe decreased sensation to light touch and pressure as well as two point descriminatio n over the dorsal aspects of bilateral arms, shoulders neck and upper chest. He as 3/5 strength bilateral tank charger as well as 3/5 strength in flexion at the elbow and abduc tion of bilateral arms. The weakness does seem slightly worse on the right. Normal strength testing in the lower extremities other than with right hip flexion 4/5 He has decreased sensation to light touch through the lateral aspect of the right leg. Absent left brachioradialis reflex. Right brachioradialis reflex is 1/4. Patellar DTR's 2/4 Medical Decision Making and Emergency Department Course ED Department Course Pt with MRI showing severe spinal cord compromise and some mild abnormalities on neurologic exam. Will discuss with neurosurgery. His condition is guarded. Medications morphine injection 4 mg (has no administration in time range) ondansetron (ZOFRAN) injection 4 mg (has no administration in time range) diazePAM (VALIUM) injection 5 mg (has no administration in time range) HYDROcodone-acetaminophen (NORCO) 5-325 mg per tablet 2 tablet (2 tablets Oral Given 0 1759) Medical Decision Making as of Dec 24 2011 [facility] Dec 24, [address] Patton states that he is aware of the patient but he communicated to the clinician s in [place] that the patient should be sent to [place] on the outpatient basis for bonilla rgical consults. 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 1716 Dr. Adams states the pt doesn't have a PCP. He is new to the area. He states that h chauncey has been trying to get the patient a follow up but hasn't had much. He told the pt that i f he gets worse he should go where the neurosurgeons are. He spoke with Dr. Patton last nig . He did see the MRI images and asked, "are his arms paralyzed?". Dr. Adams told him no that the weakness seemed moderate to mild and Dr. Patton indicated that he should then be s een in the on the outpatient basis in [place] or in his clinic here in [facility]. 1801 Jayant from [facility] calling me back. He should have a orthopedic spi nal surgeon on the phone for me shortly. 1853 Dr. Aparicio accepts pt in [facility] to [facility]. He states that, given the MRI report a nd the arm weakness (although mild ) pt needs surgery within the next day or two. He would like us to place the pt in a C-collar and keep him on bed rest. He will have us send the pt to the ED at [facility] and they will see the pt when he arrives. He is fin e with either ground or air transport whatever I feel is the most appropriate mode of transp ort. Nurse placing aspen collar now. 2007 No ground transport until tomorrow morning. Pt is scared he states he can feel his ar ms getting weaker and weaker. No appreciable change in repeat neurologic exam at this time however. Called [facility] to update them that the patient may not be there til tomorrow afternoon g meghannen issues with no available ground transport until 830 am tomorrow morning. Jayant states he will update the neurosurgeon himself.l 2008 Pt has medicaid per , Alfreda, states that she cannot gaurantee it but the flight would likely be covered under medical necessity by pt's medicaid. On one hand the pt cannot go home due to neurologic emergency and possible impending paralysis and respiratory failur e, but he cannot stay here in case his condition worsens as we do not have neurosurgical cov erage for the next few days. Discussed above with the pt. He voices understanding and states the he is fine with [facility] transport if necessary or staying here overnight. As he has been here for many hours and his neurologic exam is stable it seems it would be s afe to keep him here overnight and transport him tomorrow. Will discuss with the hospitalis t and other ER docs to see what their comfort level is with this. 8:31 PM PDT Discussed case with Dr. Mclain. She is not comfortable accepting the pt for observation und er the hospitalist service as there is no neurosurgical coverage tonight. Will discuss case with Incoming ER physician as my shift has ended for the day. Plan is to keep the pt in the ER tonight and await ground transport at 830 AM tomorrow morning as long as no worsening neurologic abnormalities. Discussed with pt as well and he is comfortable w ith this plan. 7:04 PM PDT Upon review of the patient s history, physical and the results of studies I believe that the patient warrants admission to the hospital for further evaluation and treatment. I have spoken with the patient regarding the need for admission to the hospital, and the patient h as expressed understanding of this. I will call and arrange for admission at this time. Records Reviewed Nursing notes were reviewed for chief complaint, medications, clinical presentation and vi do signs. Old ED records were reviewed as available (Using the electronic record system of [facility], with regard to the past medical/surgical history, previous medications, and all ergies). Laboratory Evaluation Results Procedure Component Value Ref Range Date/Time Coronavirus (COVID-19) NAAT [[id number]] Collected: 12/24/19 190 Order Status: Completed Specimen: Tissue from Nasopharynx Updated: 12/24/192017 SARS-CoV-2, MERCEDES (COVID-19) NEGATIVE NEG Sedimentation Rate [[id number]] Collected: 12/24/191702 Order Status: Completed Specimen: Blood Updated: 12/24/19 1845 ESR <1 0 - 20 mm/Hr C-Reactive Protein [[id number]] Collected: 12/24/191702 Order Status: Completed Specimen: Blood Updated: 12/24/199 CRP <0.4 <0.5 mg/dL Comprehensive Metabolic Panel [[id number]] (Abnormal) Collected: 12/24/191702 Order Status: Completed Specimen: Blood Updated: 12/24/191738 Na 142 135 - 145 mmol/L K 3.5 3.5 - 4.9 mmol/L Cl 106 99 - 109 mmol/L CO2 30 23 - 32 mmol/L Anion Gap 10 5 - 20 mmol/L Glucose 118 65 - 99 mg/dL BUN 13 8 - 25 mg/dL Creatinine 1.05 0.70 - 1.30 mg/dL BUN/Creatinine Ratio 12 Calcium 9.5 8.5 - 10.5 mg/dL Protein, Total 6.1 6.3 - 8.2 g/dL Albumin 4.3 3.6 - 5.0 g/dL Globulin 1.8 1.3 - 4.9 g/dL A/G Ratio 2.4 1.0 - 2.4 BILIRUBIN, TOTAL 0.5 0.1 - 1.5 mg/dL ALK PHOS 100 35 - 115 U/L AST 15 10 - 45 U/L ALT 16 10 - 65 U/L Estimated GFR >60 >60 mL/min/1.73m2 CBC with Differential [[id number]] Collected: 12/24/19 1703 Order Status: Completed Specimen: Blood Updated: 12/24/19 1722 WBC 9.83 3.80 - 11.00 K/uL RBC 4.92 4.20 - 5.70 M/uL Hemoglobin 14.8 13.2 - 17.0 g/dL Hematocrit 44.5 39.0 - 50.0 % MCV 90.4 80.0 - 100.0 fl MCH 30.1 27.0 - 34.0 pg MCHC 33.3 32.0 - 35.5 g/dL RDW-SD 46.5 37 - 53 fl Platelet Count 280 150 - 400 K/uL MPV 10.6 fl Diff Type AUTOMATED % nRBC 0.0 0 /100WBC % Neutrophils 62.60 % IMMATURE GRANULOCYTE 0.70 % % Lymphocytes 28.00 % Monocyte % 7.40 % Eosinophils % 0.90 % Basophils % 0.40 % Neutrophils, Absolute 6.15 1.90 - 7.40 K/uL IMMATURE GRANS AB 0.07 0.00 - 0.07 K/uL Absolute Lymphocytes 2.75 1.00 - 3.90 K/uL Absolute Monocytes 0.73 0.00 - 0.80 K/uL Eosinophils, Absolute 0.09 0.00 - 0.50 K/uL Basophils, Absolute 0.04 0.00 - 0.10 K/uL I personally reviewed the lab results and they have been posted to the chart. Pertinent po sitive and negative findings have been addressed appropriately. EKG and Radiology Evaluation EKG performed at 1641 Normal Sinus Rhythm 86 bpm. Normal axis Intervals normal No significant ST segment abnormalities Normal T wave morphology No acute ischemia. Interpreted by me at time of service Imaging Results XR Chest AP Portable (Final result) Result time 12/24/19 16:59:06 Final result by Linda Cosme MD (12/24/19 16:59:06) Impression: Negative chest. Signed by: Amanda Cosme Leslie Sign Date/Time: 12/24/2019 4:59 PM Narrative: CHEST PORTABLE ONE VIEW CLINICAL INFORMATION: pre-operation, numbness. COMPARISON: None FINDINGS: Heart, lungs and vessels normal. No pneumothorax, pleural effusion or adenopathy. No significant bone abnormality. Cervical plate and screws are present at the upper edge of the film in the lower cervical spine. Diagnosis: 1. 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 Bilateral arm weakness Disposition: ED Disposition ED Disposition Condition Comment Transfer to Another Facility [facility] This chart has in part been created using [employer] Speech Recognition software. The c [place] has been reviewed and there may still exist sound alike word errors. Christy Benitez DO Procedures Critical Care Note Performed by: Christy Benitez DO Authorized by:Christy Benitez DO Critical care provider statement: Critical care time (minutes): 35 Critical care time was exclusive of: Separately billable procedures, teaching time and ann marie ating other patients Critical care was necessary to treat or prevent imminent or life-threatening deterioration of the following conditions: Neurologic emergency Critical care was time spent personally by me on the following activities: Obtaining histo ry from patient or surrogate, examination of patient, evaluation of patient's response to tr eatment, discussions with consultants, evaluation of cardiac output, development of treatmen t plan with patient or surrogate, review of old charts, re-evaluation of patient's condition , pulse oximetry, ordering and review of radiographic studies, ordering and review of labora tory studies and ordering and performing treatments and interventions. I assumed direction of critical care for this patient from another provider in my specialty : no Christy Benitez DO 12/24/191921 Christy Benitez DO 12/24/192110 documented in this en counter Plan of Treatment + +------+--------+ + + | Name | Type | Priori | Associated Diagnoses | Date/Time | | | | ty | | | + +------+--------+ + + | ED INFORMATION | BERNICE | Routin | | 12/24/2019 4:17 PM | | EXCHANGE | | e | | PDT | + +------+--------+ + + documented as of this encounter Procedures + +--------+ + + + | Procedure Name | Priori | Date/Time | Associated Diagnosis | Comments | | | ty | | | | + +--------+ + + + | CORONAVIRUS | STAT | 12/24/2019 | | Results for this | | (COVID-19) NAAT | | 7:07 PM | | procedure are in the | | | | PDT | | results section. | + +--------+ + + + | SEDIMENTATION RATE | STAT | 12/24/2019 | | Results for this | | | | 5:03 PM | | procedure are in the | | | | PDT | | results section. | + +--------+ + + + | CBC WITH | STAT | 12/24/2019 | | Results for this | | DIFFERENTIAL | | 5:03 PM | | procedure are in the | | | | PDT | | results section. | + +--------+ + + + | C-REACTIVE PROTEIN | STAT | 12/24/2019 | | Results for this | | | | 5:03 PM | | procedure are in the | | | | PDT | | results section. | + +--------+ + + + | COMPREHENSIVE | STAT | 12/24/2019 | | Results for this | | METABOLIC PANEL | | 5:03 PM | | procedure are in the | | | | PDT | | results section. | + +--------+ + + + | XR CHEST AP PORTABLE | JEVON | 12/24/2019 | | Results for this | | | | 4:58 PM | | procedure are in the | | | | PDT | | results section. | + +--------+ + + + | ECG 12 LEAD | JEVON | 12/24/2019 | | Results for this | | | | 4:41 PM | | procedure are in the | | | | PDT | | results section. | + +--------+ + + + | ED INFORMATION | Routin | 12/24/2019 | | | | EXCHANGE | e | 4:17 PM | | | | | | PDT | | | + +--------+ + + + +---+--------+ | | | | | Proced | | | ure | | | Note - | | | Steven, | | | Lab In | | | | | | Hlseve | | | n - | | | 12/23/ | | | 2019 | | | 4:18 | | | PM PDT | | | | | | Format | | | ting | | | of | | | this | | | note | | | might | | | be | | | differ | | | ent | | | from | | | the | | | origin | | | al.COL | | | LECTIV | | | E?NOTI | | | FICATI | | | ON?/ | | | | | | 0 | | | 16:16? | | | [place] | | | , | | | CECILIO | | | L?MRN: | | | | | | [id number] | | | [id number] | | | riteri | | | a Met | | | 2 in | | | 2 | | | Care | | | Guidel | | | inesSe | | | curity | | | and | | | Safety | | | Date | | | Locati | | | on | | | Type | | | Specif | | | ics | | | 10/07/18 | | | 6:55 | | | [facility] | | [facility] | | | [facility] | | | al | | | [facility] | | | ent | | | Other | | | | | | Detail | | | s: | | | PATIEN | | | T | | | LWBS- | | | Securi | | | ty | | | Events | | | (18 | | | Mo.) | | | Count | | | Elopem | | | ent 1 | | | Total | | | 1 ED | | | Care | | | Guidel | | | lisa | | | from | | | [facility] | | | ys - | | | [place] | | | laLast | | | | | | Update | | | d: | | | 4/15/1 | | | 9 | | | 11:14 | | | AM | | | Care | | | Coordi | | | nation | | | :Curre | | | ntly | | | engage | | | d in | | | mental | | | | | | health | | | | | | servic | | | es | | | with | | | [facility] | | | ys.? | | | Please | | | | | | contac | | | t | | | [facility] | | | ys | | | with | | | mental | | | | | | health | | | | | | concer | | | ns.? | | | [phone] | | | [phone] | | | .These | | | are | | | guidel | | | lisa | | | and | | | the | | | provid | | | er | | | should | | | | | | exerci | | | se | | | clinic | | | al | | | judgme | | | nt | | | when | | | provid | | | ing | | | care.F | | | lags | | | [place] | | | ED | | | Dispar | | | ity | | | Measur | | | e - | | | [place] | | | has | | | develo | | | ped a | | | flag | | | (Oreg[place] | | | n ED | | | Dispar | | | ity | | | Measur | | | e) to | | | help | | | suppor | | | t | | | Medica | | | id | | | member | | | s with | | | | | | mental | | | | | | illnes | | | s. | | | [place] | | | | | | Health | | | | | | Author | | | ity | | | uses | | | claims | | | data | | | with a | | | | | | 36-mon | | | th | | | santosh | | | g look | | | back | | | period | | | to | | | identi | | | fy | | | member | | | s who | | | have | | | had | | | two or | | | more | | | diagno | | | ses of | | | | | | mental | | | | | | illnes | | | s | | | (does | | | not | | | need | | | to be | | | primar | | | y) in | | | any | | | settin | | | g | | | (e.g. | | | ED, | | | Inpati | | | ent, | | | primar | | | y | | | care). | | | | | | Flagge | | | d | | | member | | | s are | | | includ | | | ed in | | | the ED | | | | | | Dispar | | | ity | | | Measur | | | e | | | denomi | | | nator | | | popula | | | tion. | | | Flags | | | are | | | update | | | d | | | weekly | | | . / | | | Attrib | | | uted | | | By: | | | [place] | | | | | | Health | | | | | | Author | | | ity | | | (OHA) | | | / | | | Attrib | | | uted | | | On: | | | 04/29/ | | | 2020 | | | Prescr | | | iption | | | Drug | | | Report | | | (12 | | | Mo.)PD | | | MP | | | query | | | found | | | no | | | report | | | .E.D. | | | Visit | | | Count | | | (12 | | | mo.)Fa | | | cility | | | | | | Visits | | | Low | | | Acuity | | | Good | | | [facility] | | | rd | | | Health | | | 1 0 | | | [facility] | | | | | | [facility] | | | al | | | Medica | | | l | | | Center | | | 1 0 | | | [facility] | | [facility] | | | [facility] | | | al 5 0 | | | Total | | | 7 0 | | | Note: | | | Visits | | | | | | indica | | | te | | | total | | | known | | | visits | | | . | | | Medica | | | id Low | | | | | | Acuity | | | Dx | | | are | | | the | | | number | | | of | | | primar | | | y | | | diagno | | | ses on | | | the | | | Medica | | | id's | | | Low | | | Acuity | | | dx | | | list. | | | | | | Recent | | | | | | Emerge | | | ncy | | | Depart | | | ment | | | Visit | | | [facility] | | | yDate | | | Facili | | | ty | | | City | | | State | | | Type | | | Diagno | | | ses or | | | Chief | | | | | | Compla | | | int | | | [place] | | | 25, | | | 2020 | | | [facility] | | | | | | [facility] | | | al | | | [facility] | | | [place] | | | [place] | | | Emerge | | | ncy | | | [facility] | | | 24, | | | 2020 | | | [facility] | | | [facility] | | | [place] | | | [place] | | | Emerge | | | ncy | | | Chief | | | Compla | | | int: | | | NUMBNE | | | SS | | | [facility] | | | 18, | | | 2020 | | | [facility] | | | [facility] | | | [place] | | | [place] | | | Emerge | | | ncy | | | | | | Nicoti | | | ne | | | depend | | | ence, | | | unspec | | | ified, | | | | | | uncomp | | | licate | | | d | | | Radicu | | | lopath | | | y, | | | cervic | | | al | | | region | | | | | | Allerg | | | y | | | status | | | to | | | other | | | drugs, | | | | | | medica | | | ments | | | and | | | biolog | | | ical | | | sub | | | | | | Essent | | | ial | | | (prima | | | ry) | | | hypert | | | ension | | | | | | Anesth | | | esia | | | of | | | skin | | | | | | Allerg | | | y | | | status | | | to | | | other | | | antibi | | | otic | | | agents | | | | | | status | | | [facility] | | | 12, | | | 2020 | | | [facility] | [facility] | | | [place] | | | [place] | | | Emerge | | | ncy | | | | | | Anxiet | | | y | | | disord | | | er, | | | unspec | | | ified | | | | | | Allerg | | | y | | | status | | | to | | | other | | | antibi | | | otic | | | agents | | | | | | status | | | | | | Radicu | | | lopath | | | y, | | | cervic | | | al | | | region | | | | | | Allerg | | | y | | | status | | | to | | | other | | | drugs, | | | | | | medica | | | ments | | | and | | | biolog | | | ical | | | sub | | | | | | Essent | | | ial | | | (prima | | | ry) | | | hypert | | | ension | | | | | | Nicoti | | | ne | | | depend | | | ence, | | | unspec | | | ified, | | | | | | uncomp | | | licate | | | d | | | Cervic | | | algia | | | Mar | | | 19, | | | 2020 | | | [facility] | | [facility] | | | [place] | | | [place] | | | Emerge | | | ncy | | | Other | | | long | | | term | | | (curre | | | nt) | | | drug | | | therap | | | y | | | Allerg | | | y | | | status | | | to | | | other | | | drugs, | | | | | | medica | | | ments | | | and | | | biolog | | | ical | | | sub | | | | | | Headac | | | he | | | Allerg | | | y | | | status | | | to | | | other | | | antibi | | | otic | | | agents | | | | | | status | | | | | | Inflam | | | matory | | | | | | condit | | | ions | | | of | | | jaws | | | | | | Person | | | al | | | histor | | | y of | | | urinar | | | y | | | calcul | | | i | | | Nicoti | | | ne | | | depend | | | ence, | | | unspec | | | ified, | | | | | | uncomp | | | licate | | | d | | | Acquir | | | ed | | | absenc | | | e of | | | other | | | specif | | | ied | | | parts | | | of | | | digest | | | modesto | | | tract | | | | | | Essent | | | ial | | | (prima | | | ry) | | | hypert | | | ension | | | Sep | | | 17, | | | 2019 | | | [facility] | | | [facility] | | | [place] | | | [place] | | | Emerge | | | ncy | | | | | | Allerg | | | y | | | status | | | to | | | other | | | antibi | | | otic | | | agents | | | | | | status | | | | | | Nicoti | | | ne | | | depend | | | ence, | | | unspec | | | ified, | | | | | | uncomp | | | licate | | | d | | | Allerg | | | y | | | status | | | to | | | other | | | drugs, | | | | | | medica | | | ments | | | and | | | biolog | | | ical | | | sub | | | Other | | | long | | | term | | | (curre | | | nt) | | | drug | | | therap | | | y | | | Encoun | | | ter | | | for | | | other | | | genera | | | l | | | examin | | | ation | | | | | | Allerg | | | y | | | status | | | to | | | narcot | | | ic | | | agent | | | status | | | | | | Person | | | al | | | histor | | | y of | | | urinar | | | y | | | calcul | | | i | | | Essent | | | ial | | | (prima | | | ry) | | | hypert | | | ension | | | | | | Unspec | | | ified | | | psycho | | | sis | | | not | | | due to | | | a | | | substa | | | nce or | | | known | | | | | | physio | | | l Sep | | | 11, | | | 2019 | | | [facility] | | | [facility] | | | rd | | | Health | | | | | | [place] | | | [place] | | | Emerge | | | ncy | | | leg | | | pain | | | | | | Parano | | | id | | | schizo | | | phreni | | | a | | | Recent | | | | | | Inpati | | | ent | | | Visit | | | [facility] | | | yNo | | | record | | | ed | | | inpati | | | ent | | | visits | | | . Care | | | | | | TeamPr | | | ovider | | | | | | Specia | | | lty | | | Phone | | | Fax | | | Servic | | | e | | | Dates | | | CARLSO | | | N, | | | DEANDRE | | | D, | | | M.D. | | | Family | | | | | | Medici | | | ne | | | ([phone]) | | | [phone] | | | 37 | | | (541) | | | [phone] | | | 36 Aug | | | 6, | | | 2018 - | | | | | | [facility] | | | t | | | HEALTH | | | , | | | [facility] | | | Clinic | | | /Cente | | | r: | | | Health | | | | | | Servic | | | e | | | (503) | | | [phone] | | | 58 | | | (503) | | | [phone] | | | [address] | | | 21, | | | 2019 - | | | | | | Curren | | | t | | | JOHNSO | | | N, | | | STEFFEN | | | , | | | M.D. | | | Family | | | | | | Medici | | | ne | | | ([phone]) | | | [phone] | | | 00 | | | ([phone]) | | | [phone] | | | 27 [place] | | | 15, | | | 2020 - | | | | | | Curren | | | t ST, | | | | | | [facility] | | | [place] | | | MEDICA | | | L | | | CLINIC | | | - | | | [facility] | | | TS | | | [facility] | | | al | | | Medici | | | ne | | | (503) | | | [phone] | | | 95 | | | (503) | | | [phone] | | | 05 Mar | | | 27, | | | 2019 - | | | | | | Curren | | | t | | | [facility] | | | tive | | | Portal | | | This | | | patien | | | t has | | | regist | | | ered | | | at the | | | | | | [facility] | | | | | | Region | | | al | | | Medica | | | l | | | Center | | | | | | Emerge | | | ncy | | | Depart | | | ment | | | For | | | more | | | inform | | | ation | | | visit: | | | | | | https: | | | //secu | | | [email or web address] | | | lectiv | | | emedic | | | al.com | | | /notif | | | [id number] | | | [id number] | | | [phone] | | | [email or web address] | | | [id number] | | | [id number] | | | dd | | | PLEASE | | | NOTE: | | | 1. | | | Any | | | care | | | recomm | | | endati | | | ons | | | and | | | other | | | clinic | | | al | | | inform | | | ation | | | are | | | provid | | | ed as | | | guidel | | | lisa | | | or for | | | | | | histor | | | ical | | | purpos | | | es | | | only, | | | and | | | provid | | | ers | | | should | | | | | | exerci | | | se | | | their | | | own | | | clinic | | | al | | | judgme | | | nt | | | when | | | provid | | | ing | | | care. | | | 2. | | | You | | | may | | | only | | | use | | | this | | | inform | | | ation | | | for | | | purpos | | | es of | | | treatm | | | ent, | | | paymen | | | t or | | | health | | | care | | | operat | | | ions | | | activi | | | ties, | | | and | | | subjec | | | t to | | | the | | | limita | | | tions | | | of | | | applic | | | able | | | [facility] | | | tive | | | Polici | | | es. | | | 3. | | | You | | | should | | | | | | consul | | | t | | | direct | | | ly | | | with | | | the | | | organi | | | zation | | | that | | | provid | | | ed a | | | care | | | guidel | | | ine or | | | other | | | | | | clinic | | | al | | | histor | | | y with | | | any | | | questi | | | ons | | | about | | | additi | | | onal | | | inform | | | ation | | | or | | | accura | | | cy or | | | comple | | | teness | | | of | | | inform | | | ation | | | provid | | | ed.? | | | 2020 | | | [facility] | | | tive | | | Medica | | | l | | | Techn[employer] | | | logies | | | , Inc[employer] | | | - | | | [email or web address] | | | llecti | | | vemedi | | | [email or web address] | | | m | +---+--------+ documented in this encounter Results Coronavirus (COVID-19) NAAT (12/24/2019 7:07 PM PDT) + + + + + + | Component | Value | Ref Range | Performed | Pathologist | | | | | At | Signature | + + + + + + | SARS-CoV-2, | NEGATIVEComment: This | NEG | [facility] | | | NAAT | test was developed and | | LABORATORY | | | (COVID-19) | its performance | | | | | | characteristics | | | | | | determined byCepheid. It | | | | | | has not been cleared or | | | | | | approved by the [place] FDA. | | | | | | This test has | | | | | | beenauthorized by FDA | | | | | | under an Emergency Use | | | | | | Authorization (EUSA)). | | | | | | Cliniciansshould be | | | | | | advised to consider a | | | | | | patients signs, | | | | | | symptoms, history, and | | | | | | resultsof other | | | | | | diagnostic test when | | | | | | interpreting | | | | | | results.Testing | | | | | | performed at [facility] | | | | | | [facility];[place], [place] | | | | | | [address] | | | | + + + + + + + + | Specimen | + + | Tissue - Entire | | nasopharynx (body | | structure) | + + + + + + + | Performing | Address | City/State/Zipcode | Phone Number | | Organization | | | | + + + + + | [facility] | [address] | [place] [address] | [phone] | + + + + + Sedimentation Rate (12/24/2019 5:03 PM PDT) + + + + + + | Component | Value | Ref Range | Performed | Pathologist | | | | | At | Signature | + + + + + + | ESR | <1Comment: Testing | 0 - 20 mm/Hr | [facility] | | | | performed at [facility];[address] | LABORAT[address] | | | [address];[place] | | | | | | [address] | | | | + + + + + + + + | Specimen | + + | Blood | + + + + + + + | Performing | Address | City/State/Zipcode | Phone Number | | Organization | | | | + + + + + | [facility] | [address] | [place] [address] | [phone] | + + + + + C-Reactive Protein (12/24/2019 5:03 PM PDT) + + + + + + | Component | Value | Ref Range | Performed | Pathologist | | | | | At | Signature | + + + + + + | CRP | <0.4Comment: Testing | <0.5 mg/dL | [facility] | | | | performed at [facility];[address] | | LABORATORY | | | | [address];[place] | | | | | | [address] | | | | + + + + + + + + | Specimen | + + | Blood | + + + + + + + | Performing | Address | City/State/Zipcode | Phone Number | | Organization | | | | + + + + + | [facility] | [address] | [place] [address] | [phone] | + + + + + Comprehensive Metabolic Panel (12/24/2019 5:03 PM PDT) + + + + + + | Component | Value | Ref Range | Performed | Pathologist | | | | | At | Signature | + + + + + + | Na | 142 | 135 - 145 | [facility] | | | | | mmol/L | LABORATORY | | + + + + + + | K | 3.5 | 3.5 - 4.9 | [facility] | | | | | mmol/L | LABORATORY | | + + + + + + | Cl | 106 | 99 - 109 mmol/L | [facility] | | | | | | LABORATORY | | + + + + + + | CO2 | 30 | 23 - 32 mmol/L | [facility] | | | | | | LABORATORY | | + + + + + + | Anion Gap | 10 | 5 - 20 mmol/L | [facility] | | | | | | LABORATORY | | + + + + + + | Glucose | 118 (H) | 65 - 99 mg/dL | [facility] | | | | | | LABORATORY | | + + + + + + | BUN | 13 | 8 - 25 mg/dL | [facility] | | | | | | LABORATORY | | + + + + + + | Creatinine | 1.05 | 0.70 - 1.30 | [facility] | | | | | mg/dL | LABORATORY | | + + + + + + | BUN/Creatin | 12 | | [facility] | | | ine Ratio | | | LABORATORY | | + + + + + + | Calcium | 9.5 | 8.5 - 10.5 | [facility] | | | | | mg/dL | LABORATORY | | + + + + + + | Protein, | 6.1 (L) | 6.3 - 8.2 g/dL | [facility] | | | Total | | | LABORATORY | | + + + + + + | Albumin | 4.3 | 3.6 - 5.0 g/dL | [facility] | | | | | | LABORATORY | | + + + + + + | Globulin | 1.8 | 1.3 - 4.9 g/dL | [facility] | | | | | | LABORATORY | | + + + + + + | A/G Ratio | 2.4 | 1.0 - 2.4 | [facility] | | | | | | LABORATORY | | + + + + + + | BILIRUBIN, | 0.5 | 0.1 - 1.5 mg/dL | [facility] | | | TOTAL | | | LABORATORY | | + + + + + + | ALK PHOS | 100 | 35 - 115 U/L | [facility] | | | | | | LABORATORY | | + + + + + + | AST | 15 | 10 - 45 U/L | [facility] | | | | | | LABORATORY | | + + + + + + | ALT | 16 | 10 - 65 U/L | [facility] | | | | | | LABORATORY | | + + + + + + | Estimated | >60Comment: GFR <60: | >60 | [facility] | | | GFR | CHRONIC KIDNEY DISEASE, | mL/min/1.73m2 | LABORATORY | | | | IF FOUND OVER A 3 MONTH | | | | | | PERIOD.GFR <15: KIDNEY | | | | | | FAILURE.FOR | | | | | | AMERICANS, MULTIPLY THE | | | | | | CALCULATED GFR BY | | | | | | 1.210.This eGFR is | | | | | | calculated using the | | | | | | MDRD IDMS traceable | | | | | | equation.Testing | | | | | | performed at [facility];[address] | | | | | | [facility];[place], [place] | | | | | | [address] | | | | + + + + + + + + | Specimen | + + | Blood | + + + + + + + | Performing | Address | City/State/Zipcode | Phone Number | | Organization | | | | + + + + + | [facility] | [address] | [place] [address] | [phone] | + + + + + CBC with Differential (12/24/2019 5:03 PM PDT) + + + + + + | Component | Value | Ref Range | Performed | Pathologist | | | | | At | Signature | + + + + + + | WBC | 9.83 | 3.80 - 11.00 | [facility] | | | | | K/uL | LABORATORY | | + + + + + + | Red Blood | 4.92 | 4.20 - 5.70 | [facility] | | | Cells | | M/uL | LABORATORY | | + + + + + + | Hemoglobin | 14.8 | 13.2 - 17.0 | [facility] | | | | | g/dL | LABORATORY | | + + + + + + | Hematocrit | 44.5 | 39.0 - 50.0 % | [facility] | | | | | | LABORATORY | | + + + + + + | MCV | 90.4 | 80.0 - 100.0 fl | [facility] | | | | | | LABORATORY | | + + + + + + | MCH | 30.1 | 27.0 - 34.0 pg | [facility] | | | | | | LABORATORY | | + + + + + + | MCHC | 33.3 | 32.0 - 35.5 | [facility] | | | | | g/dL | LABORATORY | | + + + + + + | RDW-SD | 46.5 | 37 - 53 fl | [facility] | | | | | | LABORATORY | | + + + + + + | Platelet | 280 | 150 - 400 K/uL | [facility] | | | Count | | | LABORATORY | | + + + + + + | MPV | 10.6Comment: NO NORMAL | fl | [facility] | | | | RANGE ESTABLISHED | | LABORATORY | | + + + + + + | Diff Type | AUTOMATED | | [facility] | | | | | | LABORATORY | | + + + + + + | % nRBC | 0.0 | 0 /100WBC | [facility] | | | | | | LABORATORY | | + + + + + + | % | 62.60 | % | [facility] | | | Neutrophils | | | LABORATORY | | + + + + + + | IMMATURE | 0.70 | % | [facility] | | | GRANULOCYTE | | | LABORATORY | | + + + + + + | % | 28.00 | % | [facility] | | | Lymphocytes | | | LABORATORY | | + + + + + + | Monocyte % | 7.40 | % | [facility] | | | | | | LABORATORY | | + + + + + + | Eosinophils | 0.90 | % | [facility] | | | % | | | LABORATORY | | + + + + + + | Basophils % | 0.40 | % | [facility] | | | | | | LABORATORY | | + + + + + + | Neutrophils | 6.15 | 1.90 - 7.40 | [facility] | | | , Absolute | | K/uL | LABORATORY | | + + + + + + | IMMATURE | 0.07Comment: NOTE NEW | 0.00 - 0.07 | [facility] | | | GRANS AB | REFERENCE RANGE | K/uL | LABORATORY | | + + + + + + | Absolute | 2.75 | 1.00 - 3.90 | [facility] | | | Lymphocytes | | K/uL | LABORATORY | | + + + + + + | Absolute | 0.73 | 0.00 - 0.80 | [facility] | | | Monocytes | | K/uL | LABORATORY | | + + + + + + | Eosinophils | 0.09 | 0.00 - 0.50 | [facility] | | | , Absolute | | K/uL | LABORATORY | | + + + + + + | Basophils, | 0.04Comment: Testing | 0.00 - 0.10 | [facility] | | | Absolute | performed at [facility];[address] | [address] | LABORATORY | | | | [address];[place] | | | | | | [address] | | | | + + + + + + + + | Specimen | + + | Blood | + + + + + + + | Performing | Address | City/State/Zipcode | Phone Number | | Organization | | | | + + + + + | [facility] | [id number] | [place] [address] | [phone] | + + + + + XR Chest AP Portable (12/24/2019 4:58 PM PDT) + + | Specimen | + + | | + + + + + | Impressions | Performed At | + + + | Negative chest. Signed by: Amanda Cosme Leslie Sign | [facility] | | Date/Time: 12/24/2019 4:59 PM | | + + + + + + | Narrative | Performed At | + + + | CHEST PORTABLE ONE VIEW CLINICAL INFORMATION: pre-operation, | [facility] | | numbness. COMPARISON: None FINDINGS: Heart, lungs and | | | vessels normal. No pneumothorax, pleural effusion or adenopathy. No | | | significant bone abnormality. Cervical plate and screws are present | | | at the upper edge of the film in the lower cervical spine. | | + + + + + | Procedure Note | + + | Steven, Rad Results In - 12/24/2019 5:02 PM PDT | | CHEST PORTABLE ONE VIEW | | | | CLINICAL INFORMATION: | | pre-operation, numbness. | | | | COMPARISON: | | None | | | | FINDINGS: | | Heart, lungs and vessels normal. No pneumothorax, pleural effusion or | | adenopathy. No significant bone abnormality. Cervical plate and screws | | are present at the upper edge of the film in the lower cervical spine. | | | | IMPRESSION: | | Negative chest. | | | | | | | | Signed by: Amanda Cosme Leslie | | Sign Date/Time: 12/24/2019 4:59 PM | + + + +---------+ + + | Performing | Address | City/State/Zipcode | Phone Number | | Organization | | | | + +---------+ + + | [facility] | | | | + +---------+ + + ECG 12 lead (12/24/2019 4:41 PM PDT) + + + + + + | Component | Value | Ref Range | Performed | Pathologist | | | | | At | Signature | + + + + + + | VENTRICULAR | 86 | BPM | [facility] | | | RATE EKG | | | | | + + + + + + | ATRIAL RATE | 86 | BPM | [facility] | | + + + + + + | P-R | 168 | ms | [facility] | | | INTERVAL | | | | | + + + + + + | QRS | 94 | ms | [facility] | | | DURATION | | | | | + + + + + + | Q-T | 364 | ms | [facility] | | | INTERVAL | | | | | + + + + + + | Q-T | 435 | ms | [facility] | | | INTERVAL | | | | | | (CORRECTED) | | | | | + + + + + + | P WAVE AXIS | 33 | degrees | [facility] | | + + + + + + | QRS AXIS | 54 | degrees | [facility] | | + + + + + + | T AXIS | 48 | degrees | [facility] | | + + + + + + | INTERPRETAT | Normal sinus | | [facility] | | | ION TEXT | rhythmNormal ECGNo | | | | | | previous ECGs | | | | | | availableThis ECG | | | | | | contains Unconfirmed | | | | | | Interpretation | | | | | | Statements. See ED | | | | | | Record for Physician | | | | | | Interpretation. | | | | | | Confirmed by [facility] READ | | | | | | ONLY, -COMPUTER ([id number]), | | | | | | slot editor BRIAN KIMBALL | | | | | | ([id number]) on 12/25/2019 | | | | | | 4:57:57 AM | | | | + + + + + + + + | Specimen | + + | | + + + + + | Narrative | Performed At | + + + | | | + + + + +---------+ + + | Performing | Address | City/State/Zipcode | Phone Number | | Organization | | | | + +---------+ + + | [facility] | | | | + +---------+ + + documented in this encounter Visit Diagnoses + + | Diagnosis | + + | Herniation of intervertebral disc of high cervical region - Primary | + + | Bilateral arm weakness Other musculoskeletal symptoms referable to limbs | + + documented in this encounter Administered Medications + +--------+ +------+------+------+ | Medication Order | MAR | Action | Dose | Rate | Site | | | Action | Date | | | | + +--------+ +------+------+------+ | diazePAM (VALIUM) injection 5 | Given | 12/24/19 | 5 mg | | | | mg 5 mg, Intravenous, ONCE, Elvia | | 20 10:03 | | | | | 12/23/20 at 2100, For 1 dose | | PM PDT | | | | + +--------+ +------+------+------+ + +---+ | | | + +---+ | diazePAM (VALIUM) injection 5 | | | mg 5 mg, Intravenous, EVERY 3 | | | HOURS PRN, Anxiety, Muscle | | | spasms, Starting Elvia 12/24/19 at | | | 2120 | | + +---+ | | | + +---+ + +-------+ +---------+---+---+ | HYDROcodone-acetaminophen | Given | 12/24/19 | 2 | | | | (NORCO) 5-325 mg per tablet 2 | | 20 5:59 | tablets | | | | tablet 2 tablet, Oral, ONCE, Elvia | | PM PDT | | | | | 12/24/19 at 1800, For 1 dose | | | | | | + +-------+ +---------+---+---+ +---+---+ | | | +---+---+ + +-------+ +------+---+---+ | morphine injection 4 mg 4 mg, | Given | 12/25/19 | 4 mg | | | | Intravenous, EVERY 2 HOURS PRN, | | 20 8:15 | | | | | Pain, Starting Elvia 12/24/19 at | | AM PDT | | | | | 2123 | | | | | | + +-------+ +------+---+---+ +-------+ +------+---+---+ | Given | 12/25/19 | 4 mg | | | | | 20 2:27 | | | | | | AM PDT | | | | +-------+ +------+---+---+ +---+---+ | | | +---+---+ documented in this encounter Additional Health Concerns + + + + + | Infection | Onset Date | Last Indicated | Resolved Time | + + + + + | Rule out COVID-19 | 12/24/2019 | 12/24/2019 | 12/24/2019 8:18 PM | | | | | PDT | + + + + + documented as of this encounter
--- OUTSIDE RECORDS SUMMARY | ~2020-01-20 | XMS | Encounter Summary ---
Demographics + + + | Address | [address] | | | [place] [address] | + + + | Home Phone | | + + + | Preferred Language | Unknown | + + + | Marital Status | Single | + + + | Buddhism Affiliation | Unknown | + + + | Race | Unknown | + + + | Ethnic Group | Unknown | + + + Author + + + | Author | [facility] | | | and [place] | + + + | Organization | [facility] | | | [...] Team Providers + +------+ + | Care Finisher Hand Name | Role | Phone | + +------+ + PCP | Unavailable | + +------+ + Encounter Details +--------+ + + + + | Date | Type | Department | Care Team | Description | +--------+ + + + + | 09/16/ | Hospital | [facility] | | | | 2008 | Encounter | [facility] [address] | | | | | | [address] [place] | | | | | | [place] [id number] | | | | | | [phone] | | | +--------+ + + + [...]
--- OUTSIDE RECORDS SUMMARY | ~2020-01-20 | XMS | Encounter Summary ---
Demographics + + + | Address | [address] | | | [place] [address] | + + + | Home Phone | | + + + | Preferred Language | Unknown | + + + | Marital Status | Single | + + + | Restoration Affiliation | Unknown | + + + | Race | Unknown | + + + | Ethnic Group | Unknown | + + + Author + + + | Author | [facility] | | | and [place] | + + + | Organization | [facility] | | | and [...] Team Providers + +------+ + | Care Boiler Operators Supervisor Name | Role | Phone | + +------+ + | Unknown, Physician | PCP | | + +------+ + Reason for Visit + + + | Reason | Comments | + + + | Depression | | + + + | Anxiety | | + + + Encounter Details +--------+ + + + + | Date | Type | Department | Care Team | Description | +--------+ + + + + | 06/23/ | Emergency | [facility] | [place], | [facility] ([facility]) | | 2013 | | [facility] | Flaquito Kay MD [address] | (Primary Dx); | | | | CENTER [address] | [address] [place] | Polysubstance abuse | | | | [place], [place] | [place] [address] | | | | | [address] | [phone] | | | | | [phone] | | | +--------+ + + + [...] + + + | Blood Pressure | 138/110 | 06/23/2014 9:59 AM | | | | | PST | | + + + + + | Pulse | 96 | 06/23/2014 9:59 AM | | | | | PST | | + + + + + | Temperature | 37.4 C (99.4 F) | 06/23/2014 9:59 AM | | | | | PST | | + + + + + | Respiratory Rate | 16 | 06/23/2014 9:59 AM | | | | | PST | | + + + + + | Oxygen Saturation | 99% | 06/23/2014 9:59 AM | | | | | PST | | + + + + + | Inhaled Oxygen | - | - | | | Concentration | | | | + + + + + | Weight | 86.1 kg (189 lb 14.4 | 06/23/2014 9:59 AM | | | | oz) | PST | | + + + + + | Height | 177.8 cm (5' 10") | 06/23/2014 9:59 AM | | | | | PST | | + + + + + | Body Mass Index | 27.25 | 06/23/2014 9:59 AM | | | | | PST | | + + + + + [...] documented as of this encounter ED Notes Flaquito Coyne MD - 06/23/2014 2:16 PM PSTFormatting of this note might be differe nt from the original. [facility] Marie Browne Emergency Department Encounter Note [address] [place] [id number] PCP:Physician Unknown MAURA [phone] CHIEF COMPLAINT: Chief Complaint Patient presents with Depression Anxiety ED Room: ED03/ED03 HPI Marie Browne is a 43 y.o. male who presents to the Emergency Department for evaluation. The patient is from [place] and states he has felt increasingly concerned. It sounds li ke he has been evicted from the grounds of the Police Department for trespassing. He states he feels like people know where his (who has left him) is, but they will not tell him. He states he feels at times like he is being chased by people and feels paranoid about radha t. He denies any active suicidal or homicidal ideation. Denies fevers, chills, chest pain, headache, or other complaints. PAST MEDICAL & SURGICAL HISTORY History reviewed. No pertinent past medical history. Past Surgical History Procedure Date C spine fussion Shoulder surgery CURRENT MEDICATIONS Previous Medications HYDROCODONE-ACETAMINOPHEN (NORCO) 5-325 MG PER TABLET Take 1 tablet by mouth every 6 ho urs as needed. ALLERGIES No Known Allergies FAMILY AND SOCIAL HISTORY History reviewed. No pertinent family history. History Social History Marital Status: Spouse Name: N/A Number of Children: N/A Years of Education: N/A Social History Main Topics Smoking status: None Smokeless tobacco: Current User Types: Chew Alcohol Use: Yes Comment: occ Drug Use: Yes Special: Marijuana, Methamphetamines Comment: hx of oxycontin use Sexually Active: Other Topics Concern None Social History Narrative None REVIEW OF SYSTEMS As in history of present illness. A 10 system review was otherwise negative. PHYSICAL EXAM VITAL SIGNS: (first vital signs):Temp: 37.4 C (99.4 F) Pulse: 96 Resp: 16 SpO2: 99 % BP: 138/110 mmHg Constitutional: male patient, Agitated, but otherwise in no distress HEENT: Atraumatic, PERRL, Oropharynx benign. Neck: Supple with full range of motion. no lymphadenopathy and no meningismus. Respiratory: Good air movement bilaterally. No wheezes, No, rales. Cardiovascular: Normal S1 S2 Abdomen: Soft, nontender. No rebound, guarding, or masses. Bowel tones normal. No pulsa tile masses Back: No CVA tenderness. Extremities: Nontender. Neurologic: Alert & oriented. Cranial nerves II-XII intact and No focal deficits. Gait a nd speech are normal. Psychiatric: Agitated, but otherwise seems to have normal affect and judgement. LABS Results for orders placed during the hospital encounter of 06/23/14 CBC WITH DIFFERENTIAL Component Value Range WBC 8.5 4.0-11.0 K/uL RBC 5.36 4.30-5.70 M/uL Hgb 16.6 13.5-18.0 g/dL Hct 48.4 40.0-51.0 % MCV 90.5 83.0-101.0 fL MCH 30.9 28.0-35.0 pg MCHC 34.2 32.0-36.0 g/dL RDW 13.9 <15.0 % Platelet Count 298 140-440 K/uL MPV 8.9 % Neutrophils 67.6 45.0-82.0 % % Lymphocytes 25.9 20.0-45.0 % % Monocytes 5.8 4.0-12.0 % % Eosinophils 0.1 0.0-5.0 % % Basophils 0.6 0.0-1.0 % Absolute Neutrophils 5.80 1.80-8.50 K/uL Absolute Lymphocytes 2.20 0.60-3.20 K/uL Absolute Monocytes 0.50 0.00-1.00 K/uL Absolute Eosinophils 0.00 0.00-0.40 K/uL Absolute Basophils 0.00 0.00-0.10 K/uL COMPREHENSIVE METABOLIC PANEL Component Value Range NA 135 (*) 136-149 mmol/L K 3.6 3.5-5.1 mmol/L CL 103 98-109 mmol/L CO2 26 24-31 mmol/L ANION GAP 6 3-16 mmol/L GLUCOSE 119 (*) 70-109 mg/dL BUN 13 7-18 mg/dL Creatinine, Serum/Plasma 0.95 0.60-1.30 mg/dL eGFR if not >60 >=60 mL/min/1.73m2 CALCIUM 9.4 8.3-10.5 mg/dL ALBUMIN 4.5 3.2-5.0 g/dL BILIRUBIN TOTAL 1.4 0.1-1.5 mg/dL Total protein 6.9 6.0-7.8 g/dL AST 21 10-42 U/L ALT 19 6-45 U/L ALK PHOS 60 40-110 U/L GLOBULIN 2.4 Albumin/Globulin ratio 1.9 BUN/CREA 13.7 ALCOHOL Component Value Range ALCOHOL, SERUM/PLASMA <5 <400 mg/dL SALICYLATE LEVEL Component Value Range Salicylate <4.0 <30.0 mg/dL ACETAMINOPHEN LEVEL Component Value Range Acetaminophen Level <10 <10 ug/mL DRUGS OF ABUSE, SCREEN, URINE Component Value Range Amphetamine Screen, Urine Positive (*) Negative Barbiturates Screen, Urine Negative Negative Benzodiazepines, Urine, Screen Negative Negative Cannabinoids Screen, Urine Positive (*) Negative Cocaine Screen, Urine Negative Negative Methadone Screen, Urine Negative Negative Opiates Screen, Urine Positive (*) Negative URINALYSIS WITH MICROSCOPIC WITH CULTURE IF INDICATED Component Value Range COLOR Yellow Light Yellow, Yellow CLARITY Clear Clear PH UA 5.5 5.0-8.0 Specific [place] >=1.030 1.001-1.030 PROTEIN UA Trace (*) Negative BLOOD UA Negative Negative GLUCOSE UA Negative Negative KETONES UA Trace (*) Negative BILIRUBIN UA Small (*) Negative NITRITE UA Negative Negative LEUKOCYTES ESTERASE UA Negative Negative UROBILINOGEN UA 0.2 E.U./dL 0.2 E.U./dL, 1.0 E.U./dL WBC UA 2-5 (*) 0-2 /HPF RBC UA 0-2 0-2 /HPF SQUAMOUS EPITHELIAL UA 0-2 0-2 /LPF BACTERIA UA Negative Negative /HPF CALCIUM OXALATE CRYSTALS UA Occassional (*) None Seen /HPF MUCUS UA Present (*) Negative /LPF URINE COMMENT Urine Culture Not Indicated ED COURSE & MEDICAL DECISION MAKING Pertinent Labs & Imaging studies were reviewed along with EMS notes and [facility] record s if applicable. (See chart for details) Medications and Allergy list reviewed. Nurses note and old records were reviewed The patient had labs sent. These came back unremarkable although his toxin is positive for amphetamines, neurologic, and opiates. He was offered medication to help with agitation an d paranoia but below in the emergency department prior to that coming back. I was unable to complete his treatment due to him eloping from the ER. FINAL IMPRESSION 1. Paranoia (HCC) 2. Polysubstance abuse Flaquito Coyne MD 06/23/14 1419 do cumented in this encounter Miscellaneous Notes ED Triage Notes - Markus August RN - 06/23/2014 9:56 AM PSTReports he feels like he's h aving a nervous breakdown states past year and a half has been going through a lot of issues with marriage. Feels everyone against him. Denies suicidal ideations states " I would never do that" documented in this encounter Plan of Treatment Not on filedocumented as of this encounter Procedures + +--------+ + + + | Procedure Name | Priori | Date/Time | Associated Diagnosis | Comments | | | ty | | | | + +--------+ + + + | URINALYSIS WITH | STAT | 06/23/2014 | | Results for this | | MICROSCOPIC WITH | | 10:51 AM | | procedure are in the | | CULTURE IF INDICATED | | PST | | results section. | + +--------+ + + + | DRUGS OF ABUSE, | STAT | 06/23/2014 | | Results for this | | SCREEN, URINE | | 10:51 AM | | procedure are in the | | | | PST | | results section. | + +--------+ + + + | CBC WITH | STAT | 06/23/2014 | | Results for this | | DIFFERENTIAL | | 10:49 AM | | procedure are in the | | | | PST | | results section. | + +--------+ + + + | ALCOHOL | STAT | 06/23/2014 | | Results for this | | | | 10:49 AM | | procedure are in the | | | | PST | | results section. | + +--------+ + + + | ACETAMINOPHEN LEVEL | STAT | 06/23/2014 | | Results for this | | | | 10:49 AM | | procedure are in the | | | | PST | | results section. | + +--------+ + + + | SALICYLATE LEVEL | STAT | 06/23/2014 | | Results for this | | | | 10:49 AM | | procedure are in the | | | | PST | | results section. | + +--------+ + + + | COMPREHENSIVE | STAT | 06/23/2014 | | Results for this | | METABOLIC PANEL | | 10:49 AM | | procedure are in the | | | | PST | | results section. | + +--------+ + + + documented in this encounter Results Urinalysis with Microscopic with Culture if Indicated (06/23/2014 10:51 AM PST) + + + + + + | Component | Value | Ref Range | Performed | Pathologist | | | | | At | Signature | + + + + + + | Color, | Yellow | Light Yellow, | [facility] | | | Urine | | Yellow | [facility] | | | | | | MEDICAL | | | | | | CENTER - | | | | | | LABORATORY | | + + + + + + | Clarity, | Clear | Clear | [facility] | | | Urine | | | [facility] | | | | | | MEDICAL | | | | | | CENTER - | | | | | | LABORATORY | | + + + + + + | pH, Urine | 5.5 | 5.0 - 8.0 | [facility] | | | | | | [facility] | | | | | | MEDICAL | | | | | | CENTER - | | | | | | LABORATORY | | + + + + + + | Specific | >=1.030 | 1.001 - 1.030 | [facility] | | | [place], | | | [facility] | | | Urine | | | MEDICAL | | | | | | CENTER - | | | | | | LABORATORY | | + + + + + + | Protein, | Trace (A) | Negative | [facility] | | | Urine | | | [facility] | | | | | | MEDICAL | | | | | | CENTER - | | | | | | LABORATORY | | + + + + + + | Blood, | Negative | Negative | [facility] | | | Urine | | | [facility] | | | | | | MEDICAL | | | | | | CENTER - | | | | | | LABORATORY | | + + + + + + | Glucose, | Negative | Negative | [facility] | | | Urine | | | [facility] | | | | | | MEDICAL | | | | | | CENTER - | | | | | | LABORATORY | | + + + + + + | Ketones, | Trace (A) | Negative | [facility] | | | Urine | | | [facility] | | | | | | MEDICAL | | | | | | CENTER - | | | | | | LABORATORY | | + + + + + + | Bilirubin, | Small (A) | Negative | [facility] | | | Urine | | | [facility] | | | | | | MEDICAL | | | | | | CENTER - | | | | | | LABORATORY | | + + + + + + | Nitrite, | Negative | Negative | [facility] | | | Urine | | | [facility] | | | | | | MEDICAL | | | | | | CENTER - | | | | | | LABORATORY | | + + + + + + | Leukocyte | Negative | Negative | [facility] | | | Esterase, | | | [facility] | | | Urine | | | MEDICAL | | | | | | CENTER - | | | | | | LABORATORY | | + + + + + + | Urobilinoge | 0.2 E.U./dL | 0.2 E.U./dL, | [facility] | | | n, Urine | | 1.0 E.U./dL | [facility] | | | | | | MEDICAL | | | | | | CENTER - | | | | | | LABORATORY | | + + + + + + | White Blood | 2-5 (A) | 0 - 2 /HPF | [facility] | | | Cells, | | | [facility] | | | Urine | | | MEDICAL | | | | | | CENTER - | | | | | | LABORATORY | | + + + + + + | Red Blood | 0-2 | 0 - 2 /HPF | [facility] | | | Cells, | | | [facility] | | | Urine | | | MEDICAL | | | | | | CENTER - | | | | | | LABORATORY | | + + + + + + | Squamous | 0-2 | 0 - 2 /LPF | [facility] | | | Epithelial | | | [facility] | | | Cells, | | | MEDICAL | | | Urine | | | CENTER - | | | | | | LABORATORY | | + + + + + + | Bacteria, | Negative | Negative /HPF | [facility] | | | Urine | | | [facility] | | | | | | MEDICAL | | | | | | CENTER - | | | | | | LABORATORY | | + + + + + + | Calcium | Occassional (A) | None Seen /HPF | [facility] | | | Oxalate | | | [facility] | | | Crystals, | | | MEDICAL | | | Urine | | | CENTER - | | | | | | LABORATORY | | + + + + + + | Mucus, | Present (A) | Negative /LPF | [facility] | | | Urine | | | [facility] | | | | | | MEDICAL | | | | | | CENTER - | | | | | | LABORATORY | | + + + + + + | Urine | Urine Culture Not | | [facility] | | | Comment | Indicated | | [facility] | | | | | | MEDICAL | | | | | | CENTER - | | | | | | LABORATORY | | + + + + + + + + | Specimen | + + | Urine | + + + + + + + | Performing | Address | City/State/Zipcode | Phone Number | | Organization | | | | + + + + + | [facility] | [address] | [place], [place] | [phone] | | [facility] | | [address] | | | - LABORATORY | | | | + + + + + | [facility] | [address] | [place], [place] | | | [facility] | | [address], [facility] | | | - LABORATORY | | | | + + + + + Drugs of Abuse, Screen, Urine (06/23/2014 10:51 AM PST) + + + + + + | Component | Value | Ref Range | Performed | Pathologist | | | | | At | Signature | + + + + + + | Amphetamine | Positive (A) | Negative | [facility] | | | Screen, | | | [facility] | | | Urine | | | MEDICAL | | | | | | CENTER - | | | | | | LABORATORY | | + + + + + + | Barbiturate | Negative | Negative | [facility] | | | s Screen, | | | [facility] | | | Urine | | | MEDICAL | | | | | | CENTER - | | | | | | LABORATORY | | + + + + + + | Benzodiazep | Negative | Negative | [facility] | | | lisa | | | [facility] | | | Screen, | | | MEDICAL | | | Urine | | | CENTER - | | | | | | LABORATORY | | + + + + + + | Cannabinoid | Positive (A) | Negative | [facility] | | | s Screen, | | | [facility] | | | Urine | | | MEDICAL | | | | | | CENTER - | | | | | | LABORATORY | | + + + + + + | Cocaine | Negative | Negative | [facility] | | | Screen, | | | [facility] | | | Urine | | | MEDICAL | | | | | | CENTER - | | | | | | LABORATORY | | + + + + + + | Methadone | Negative | Negative | [facility] | | | Screen, | | | [facility] | | | Urine | | | MEDICAL | | | | | | CENTER - | | | | | | LABORATORY | | + + + + + + | Opiates | Positive (A) | Negative | [facility] | | | Screen, | | | [facility] | | | Urine | | | MEDICAL | | | | | | CENTER - | | | | | | LABORATORY | | + + + + + + + + | Specimen | + + | Urine | + + + + + + + | Performing | Address | City/State/Zipcode | Phone Number | | Organization | | | | + + + + + | [facility] | [address] | [place], [place] | [phone] | | [facility] | | [address] | | | - LABORATORY | | | | + + + + + | [facility] | [address] | [place], [place] | | | [facility] | | [address], [facility] | | | - LABORATORY | | | | + + + + + Acetaminophen Level (06/23/2014 10:49 AM PST) + +-------+ + + + | Component | Value | Ref Range | Performed | Pathologist | | | | | At | Signature | + +-------+ + + + | Acetaminoph | <10 | <10 ug/mL | [facility] | | | en Level | | | [facility] | | | | | | MEDICAL | | | | | | CENTER - | | | | | | LABORATORY | | + +-------+ + + + + + | Specimen | + + | Blood | + + + + + + + | Performing | Address | City/State/Zipcode | Phone Number | | Organization | | | | + + + + + | [facility] | [address] | [place] | [phone] | | [facility] | | [address] | | | - LABORATORY | | | | + + + + + | [facility] | [address] | [place] | | | [facility] | | [id number] | | | - LABORATORY | | | | + + + + + Salicylate Level (06/23/2014 10:49 AM PST) + +-------+ + + + | Component | Value | Ref Range | Performed | Pathologist | | | | | At | Signature | + +-------+ + + + | Salicylate | <4.0 | <30.0 mg/dL | [facility] | | | Level | | | [facility] | | | | | | MEDICAL | | | | | | CENTER - | | | | | | LABORATORY | | + +-------+ + + + + + | Specimen | + + | Blood | + + + + + + + | Performing | Address | City/State/Zipcode | Phone Number | | Organization | | | | + + + + + | [facility] | [address] | [place] | [phone] | | [facility] | | [address] | | | - LABORATORY | | | | + + + + + | [facility] | [address] | [place], [place] | | | [facility] | | [address] [place] [address] | | | - LABORATORY | | | | + + + + + Ethanol (06/23/2014 10:49 AM PST) + +-------+ + + + | Component | Value | Ref Range | Performed | Pathologist | | | | | At | Signature | + +-------+ + + + | ALCOHOL, | <5 | <400 mg/dL | [facility] | | | SERUM/PLASM | | | [facility] | | | A | | | MEDICAL | | | | | | CENTER - | | | | | | LABORATORY | | + +-------+ + + + + + | Specimen | + + | Blood | + + + + + + + | Performing | Address | City/State/Zipcode | Phone Number | | Organization | | | | + + + + + | [facility] | [address] | [place] | [phone] | | [facility] | | [address] | | | - LABORATORY | | | | + + + + + | [facility] | [address] | [place] | | | [facility] | | [address], [facility] | | | - LABORATORY | | | | + + + + + Comprehensive Metabolic Panel (06/23/2014 10:49 AM PST) + + + + + + | Component | Value | Ref Range | Performed | Pathologist | | | | | At | Signature | + + + + + + | Na | 135 (L) | 136 - 149 | [facility] | | | | | mmol/L | [facility] | | | | | | MEDICAL | | | | | | CENTER - | | | | | | LABORATORY | | + + + + + + | K | 3.6 | 3.5 - 5.1 | [facility] | | | | | mmol/L | [facility] | | | | | | MEDICAL | | | | | | CENTER - | | | | | | LABORATORY | | + + + + + + | Cl | 103 | 98 - 109 mmol/L | [facility] | | | | | | [facility] | | | | | | MEDICAL | | | | | | CENTER - | | | | | | LABORATORY | | + + + + + + | CO2 | 26 | 24 - 31 mmol/L | [facility] | | | | | | [facility] | | | | | | MEDICAL | | | | | | CENTER - | | | | | | LABORATORY | | + + + + + + | Anion Gap | 6 | 3 - 16 mmol/L | [facility] | | | | | | [facility] | | | | | | MEDICAL | | | | | | CENTER - | | | | | | LABORATORY | | + + + + + + | Glucose | 119 (H) | 70 - 109 mg/dL | [facility] | | | | | | [facility] | | | | | | MEDICAL | | | | | | CENTER - | | | | | | LABORATORY | | + + + + + + | BUN | 13 | 7 - 18 mg/dL | [facility] | | | | | | [facility] | | | | | | MEDICAL | | | | | | CENTER - | | | | | | LABORATORY | | + + + + + + | Creatinine | 0.95 | 0.60 - 1.30 | [facility] | | | | | mg/dL | [facility] | | | | | | MEDICAL | | | | | | CENTER - | | | | | | LABORATORY | | + + + + + + | eGFR if not | >60Comment: GLOMERULAR | >=60 | [facility] | | | | FILTRATION | mL/min/1.73m2 | [facility] | | | [place] | RATE,ESTIMATED | | MEDICAL | | | | mL/min/1.76v9Vpqy than | | CENTER - | | | | 60 Chronic kidney | | LABORATORY | | | | disease,if found over a | | | | | | 3-month period.Less than | | | | | | 15 Kidney failureFor | | | | | | | | | | | | Americans,multiply the | | | | | | calculated GFR by 1.21. | | | | | | | | | | + + + + + + | Calcium | 9.4 | 8.3 - 10.5 | [facility] | | | | | mg/dL | [facility] | | | | | | MEDICAL | | | | | | CENTER - | | | | | | LABORATORY | | + + + + + + | Albumin | 4.5 | 3.2 - 5.0 g/dL | [facility] | | | | | | [facility] | | | | | | MEDICAL | | | | | | CENTER - | | | | | | LABORATORY | | + + + + + + | Bilirubin | 1.4 | 0.1 - 1.5 mg/dL | [facility] | | | Total | | | [facility] | | | | | | MEDICAL | | | | | | CENTER - | | | | | | LABORATORY | | + + + + + + | Total | 6.9 | 6.0 - 7.8 g/dL | [facility] | | | Protein | | | [facility] | | | | | | MEDICAL | | | | | | CENTER - | | | | | | LABORATORY | | + + + + + + | AST | 21 | 10 - 42 U/L | [facility] | | | | | | [facility] | | | | | | MEDICAL | | | | | | CENTER - | | | | | | LABORATORY | | + + + + + + | ALT | 19 | 6 - 45 U/L | [facility] | | | | | | [facility] | | | | | | MEDICAL | | | | | | CENTER - | | | | | | LABORATORY | | + + + + + + | Alkaline | 60 | 40 - 110 U/L | [facility] | | | Phosphatase | | | [facility] | | | | | | MEDICAL | | | | | | CENTER - | | | | | | LABORATORY | | + + + + + + | Globulin | 2.4 | g/dL | [facility] | | | | | | [facility] | | | | | | MEDICAL | | | | | | CENTER - | | | | | | LABORATORY | | + + + + + + | Albumin/Adrianna | 1.9 | | [facility] | | | bulin Ratio | | | [facility] | | | | | | MEDICAL | | | | | | CENTER - | | | | | | LABORATORY | | + + + + + + | BUN/Creatin | 13.7 | | [facility] | | | ine Ratio | | | [facility] | | | | | | MEDICAL | | | | | | CENTER - | | | | | | LABORATORY | | + + + + + + + + | Specimen | + + | Blood | + + + + + + + | Performing | Address | City/State/Zipcode | Phone Number | | Organization | | | | + + + + + | [facility] | [address] | [place] | [phone] | | [facility] | | [address] | | | - LABORATORY | | | | + + + + + | [facility] | [address] | [place] | | | [facility] | | [id number] | | | - LABORATORY | | | | + + + + + CBC with Differential (06/23/2014 10:49 AM PST) + +-------+ + + + | Component | Value | Ref Range | Performed | Pathologist | | | | | At | Signature | + +-------+ + + + | White Blood | 8.5 | 4.0 - 11.0 K/uL | [facility] | | | Cells | | | [facility] | | | | | | MEDICAL | | | | | | CENTER - | | | | | | LABORATORY | | + +-------+ + + + | Red Blood | 5.36 | 4.30 - 5.70 | [facility] | | | Cells | | M/uL | [facility] | | | | | | MEDICAL | | | | | | CENTER - | | | | | | LABORATORY | | + +-------+ + + + | Hemoglobin | 16.6 | 13.5 - 18.0 | [facility] | | | | | g/dL | [facility] | | | | | | MEDICAL | | | | | | CENTER - | | | | | | LABORATORY | | + +-------+ + + + | Hematocrit | 48.4 | 40.0 - 51.0 % | [facility] | | | | | | [facility] | | | | | | MEDICAL | | | | | | CENTER - | | | | | | LABORATORY | | + +-------+ + + + | MCV | 90.5 | 83.0 - 101.0 fL | [facility] | | | | | | [facility] | | | | | | MEDICAL | | | | | | CENTER - | | | | | | LABORATORY | | + +-------+ + + + | MCH | 30.9 | 28.0 - 35.0 pg | [facility] | | | | | | [facility] | | | | | | MEDICAL | | | | | | CENTER - | | | | | | LABORATORY | | + +-------+ + + + | MCHC | 34.2 | 32.0 - 36.0 | [facility] | | | | | g/dL | [facility] | [facility] | [facility] | [facility] - | | | | | | LABORATORY | | + +-------+ + + + | RDW-CV | 13.9 | <15.0 % | [facility] | | | | | | [facility] | | [facility] | | | | [facility] - | | | | | | LABORATORY | | + +-------+ + + + | Platelet | 298 | 140 - 440 K/uL | [facility] | | | Count | | | [facility] | | [facility] | | [facility] | [facility] - | | | | | | LABORATORY | | + +-------+ + + + | MPV | 8.9 | fL | [facility] | | | | | | [facility] | [facility] - | | | | | | LABORATORY | | + +-------+ + + + | % | 67.6 | 45.0 - 82.0 % | [facility] | | | Neutrophils | | | [facility] | [facility] | | | | | | [facility] - | | | | | | LABORATORY | | + +-------+ + + + | % | 25.9 | 20.0 - 45.0 % | [facility] | | | Lymphocytes | | | [facility] | [facility] | | [facility] | | | | | | [facility] - | | | | | | LABORATORY | | + +-------+ + + + | % Monocytes | 5.8 | 4.0 - 12.0 % | [facility] | | | | | | [facility] | [facility] | [facility] | | | | [facility] - | | | | | | LABORATORY | | + +-------+ + + + | % | 0.1 | 0.0 - 5.0 % | [facility] | | | Eosinophils | | | [facility] | | [facility] | [facility] | | | | | | [facility] - | | | | | | LABORATORY | | + +-------+ + + + | % Basophils | 0.6 | 0.0 - 1.0 % | [facility] | | | | | | [facility] | [facility] | [facility] | | | | | | [facility] - | | | | | | LABORATORY | | + +-------+ + + + | Absolute | 5.80 | 1.80 - 8.50 | [facility] | | | Neutrophils | | K/uL | [facility] | | [facility] | [facility] | | | | | | [facility] - | | | | | | LABORATORY | | + +-------+ + + + | Absolute | 2.20 | 0.60 - 3.20 | [facility] | | | Lymphocytes | | K/uL | [facility] | [facility] | | | | [facility] | | | | | | [facility] - | | | | | | LABORATORY | | + +-------+ + + + | Absolute | 0.50 | 0.00 - 1.00 | [facility] | | | Monocytes | | K/uL | [facility] | | | | | | MEDICAL | | | | | | CENTER - | | | | | | LABORATORY | | + +-------+ + + + | Absolute | 0.00 | 0.00 - 0.40 | [facility] | | | Eosinophils | | K/uL | [facility] | | | | | | MEDICAL | | | | | | CENTER - | | | | | | LABORATORY | | + +-------+ + + + | Absolute | 0.00 | 0.00 - 0.10 | [facility] | | | Basophils | | K/uL | [facility] | | | | | | MEDICAL | | | | | | CENTER - | | | | | | LABORATORY | | + +-------+ + + + + + | Specimen | + + | Blood | + + + + + + + | Performing | Address | City/State/Zipcode | Phone Number | | Organization | | | | + + + + + | [facility] | [address] | [place] | [phone] | | [facility] | | [address] | | | - LABORATORY | | | | + + + + + | [facility] | [address] | [place], [place] | | | [facility] | | [address], [facility] | | | - LABORATORY | | | | + + + + + documented in this encounter Visit Diagnoses + + | Diagnosis | + + | Paranoia (HCC) - Primary Delusional disorder | + + | Polysubstance abuse (HCC) Other, mixed, or unspecified nondependent drug abuse, | | unspecified | + + documented in this encounter
--- OUTSIDE RECORDS SUMMARY | ~2020-01-20 | XMS | Encounter Summary ---
Demographics + + + | Address | [address] | | | [place] [address] | + + + | Home Phone | | + + + | Preferred Language | Unknown | + + + | Marital Status | Single | + + + | Presybeterian Affiliation | Unknown | + + + | Race | Unknown | + + + | Ethnic Group | Unknown | + + + Author + + + | Author | [facility] | | | and [place] | + + + | Organization | [facility] | | | and [...] Team Providers + +------+ + | Care Sweater Designer Name | Role | Phone | + +------+ + PCP | Unavailable | + +------+ + Encounter Details +--------+ + + + + | Date | Type | Department | Care Team | Description | +--------+ + + + + | 08/06/ | Hospital | [facility] | | | | 2008 | Encounter | MED CTR XRAY [address] | | | | | | [address] | | | | | | [place] [address] | | | | | | [phone] | | | +--------+ + + + [...]
--- OUTSIDE RECORDS SUMMARY | ~2020-01-20 | XMS | Encounter Summary ---
Demographics + + + | Address | [address] | | | [place] [address] | + + + | Home Phone | | + + + | Preferred Language | Unknown | + + + | Marital Status | Single | + + + | Church Affiliation | Unknown | + + + | Race | Unknown | + + + | Ethnic Group | Unknown | + + + Author + + + | Author | [facility] | | | and [place] | + + + | Organization | [facility] | | | [...] Team Providers + +------+ + | Care Mixed Crop And Livestock Farmer Name | Role | Phone | + [...] | SR | | | | | [address] [facility] | | | | | | [place], [place] | | | | | | [address] | | | | | | [phone] | | | +--------+ + + + [...]
--- OUTSIDE RECORDS SUMMARY | ~2020-01-20 | XMS | Encounter Summary ---
Demographics + + + | Address | [address] | | | [place] [address] | + + + | Home Phone | | + + + | Preferred Language | Unknown | + + + | Marital Status | Single | + + + | Druze Affiliation | Unknown | + + + | Race | Unknown | + + + | Ethnic Group | Unknown | + + + Author + + + | Author | [facility] | | | and [place] | + + + | Organization | [facility] | | | and [...] Team Providers + +------+ + | Care Shop Lead Name | Role | Phone | + +------+ + PCP | Unavailable | + +------+ + Encounter Details +--------+ + + + + | Date | Type | Department | Care Team | Description | +--------+ + + + + | 08/28/ | Hospital | [facility] | | | | 2006 | Encounter | MED CTR GENERIC IP | | | | | | CONV DEPT [address] | | | | | | [place], | | | | | | [place] [address] | | | | | | [phone] | | | +--------+ + + + [...]
--- OUTSIDE RECORDS SUMMARY | ~2020-01-20 | XMS | Clinical Summary ---
Demographics + + + | Address | [address] | | | [place] [address] | + + + | Home Phone | | + + + | Preferred Language | Unknown | + + + | Marital Status | Single | + + + | Quaker Affiliation | Unknown | + + + | Race | Unknown | + + + | Ethnic Group | Unknown | + + + Author + + + | Author | [facility] | | | and [place] | + + + | Organization | [facility] [...] Team Providers + +------+ + | Care Cut Off Sawyer Log Name | Role | Phone | + +------+ + | No, Physician | PCP | Unavailable | + +------+ + Allergies + + + + + + | Active Allergy | Reactions | Severity | Noted | Comments | | | | | Date | | + + + + + + | Cephalexin | Anaphylaxis | High | 10/14/19 | Swallowing | | | | | 19 | difficulty / sob | + + + + + + | Haloperidol | Anaphylaxis | High | /15/ | Sob/ throat | | | | | 19 | swelling | + + + + + + | Hydrochlorothiazide | Vertigo | Medium | 10/14/19 | Dizziness, | | | | | 19 | sweating | + + + + + + [...] | | + + + +---------+------+------+-------+ | naproxen | Take 250 mg by mouth | | 0 | | | Activ | | (NAPROSYN) 250 mg | 2 times daily (with | | | | | e | | tablet | breakfast & | | | | | | | | dinner). | | | | | | + + + +---------+------+------+-------+ | omeprazole | Take 20 mg by mouth | | 0 | | | Activ | | (PRILOSEC) 20 mg | every morning | | | | | e | | capsule | (before breakfast). | | | | | | + + + +---------+------+------+-------+ Active Problems + + + | Problem | Noted Date | + + + | NECK PAIN | | + + + | SHOULDER PAIN | | + + + | CERVICAL RADICULOPATHY | | + + + Encounters +--------+ + + + + | Date | Type | Specialty | Care Team | Description | +--------+ + + + + | 12/23/ | Emergency | Emergency Medicine | Christy Benitez, | Herniation of | | 2019 - | | | DO | intervertebral disc | | | | | | of high cervical | | 12/24/ | | | | region (Primary Dx); | | 2019 | | | | Bilateral arm | | | | | | weakness | +--------+ + + + + | 12/23/ | Imaging | Radiology | Provider, | | | 2019 | Exam | | MD Emilia | | +--------+ + + + + from Last 3 Months Social History + +-------+ +--------+------+ | Tobacco [...] | | + + + + + Plan of Treatment + + + + + | Health Maintenance | Due Date | Last | Comments | | | | Done | | + + + + + | Vaccine: | | | | | Pneumococcal 19-64 | 6 | | | | (1 of 1 - PPSV23) | | | | + + + + + | Vaccine: | | | | | Dtap/Tdap/Td (1 - | 9 | | | | Tdap) | | | | + + + + + | Colorectal Cancer | | | | | Screening | 0 | | | | (Colonoscopy) | | | | + + + + + | Vaccine: Zoster (1 | | | | | of 2) | 0 | | | + + + + + | Vaccine: Influenza | | | | | (#1) | 0 | | | + + + + + | Med Mgmt: BUN | | 12/24/19 | | | | 1 | 20, | | | | | 06/23/20 | | | | | 14, | | | | | 04/07/20 | | | | | 14, | | | | | Addition | | | | | al | | | | | history | | | | | exists | | + + + + + | Med Mgmt: Cr | | 12/24/19 | | | | 1 | 20, | | | | | 06/23/20 | | | | | 14, | | | | | 04/07/20 | | | | | 14, | | | | | Addition | | | | | al | | | | | history | | | | | exists | | + + + + + | Medication | | 12/24/19 | | | Management | 1 | 20 | | + + + + + Procedures + +--------+ + + + | [...] | | n - | | | | | | 2019 | | | [...] | | | FICATI | | | ON?06/ | | | 25/202 | | | 0 | | | 16:16? | | | PAVAN | | | , | | | CECILIO | | | L?MRN: | | | | | | [id number] | | | [id number] | | | riteri | | | [...] | | | ics | | | 4/9/19 | | | 6:55 | | | [facility] | | | y | | | [...] | | | lags | | | [place] | | | ED | | | Dispar | | | ity | | | Measur | | | e - | | | [place] | | | has | | | [...] | | | s. | | | [place] | | | | | | Health [...] | | | By: | | | [place] | | | | | | Health [...] | | | St[facility] | | | [facility] | | | y | | | [...] | | | St. | | | [facility] | | | y H. | | [...] | | | St[facility] | | | [facility] | | | y H. | | [...] | | | St[facility] | | | [facility] | | | y H. | | [...] | | | St[facility] | | | [facility] | | | y H. | | [...] | | | St. | | | [facility] | | | y H. | | [...] | | | TS | | | Teenage Program Director | | | al | | | [...] [email or web address] | | | m | +---+--------+ + +--------+ +---+ + | MRI CERVICAL SPINE W | Routin | 12/23/2019 | | Results for this | | WO CONTRAST | e | 12:00 AM | | procedure are in the | | | | PDT | | results section. | + +--------+ +---+ + from Last 3 Months Results Coronavirus (COVID-19) NAAT (12/24/2019 7:07 PM [...] | | | | | performed at [facility];[address] | | | | | | [facility];[place], [place] | | | | | | [address] | | | | + + + + + + + + | Specimen | + + | Tissue - Entire | | nasopharynx (body | | structure) | + + + + + + + | Performing | Address | City/State/Zipcode | Phone Number | | Organization | | | | + + + + + | [facility] | [address] | [place] [address] | [phone] | + + + + + Sedimentation Rate (12/24/2019 5:03 PM PDT) + + + + + + | Component | Value | Ref Range | Performed | Pathologist | | | | | At | Signature | + + + + + + | ESR | <1Comment: Testing | 0 - 20 mm/Hr | [facility] | | | | performed at [facility];[address] | LABORATORY | | | | [address];[place], [place] | | | | | | [address] | | | | + + + + + + + + | Specimen | + + | Blood | + + + + + + + | Performing | Address | City/State/Zipcode | Phone Number | | Organization | | | | + + + + + | [facility] | [address] | [place] [address] | [phone] | + + + + + CBC [...] | | | Absolute | performed at [facility];[address] | [address] | LABORATORY | | | | [address];[place] | | | | | | [address] | | | | + + + + + + + + | Specimen | + + | Blood | + + + + + + + | Performing | Address | City/State/Zipcode | Phone Number | | Organization | | | | + + + + + | [facility] | [address] | [place] [address] | [phone] | + + + + + C-Reactive Protein (12/24/2019 5:03 PM PDT) + + + + + + | Component | Value | Ref Range | Performed | Pathologist | | | | | At | Signature | + + + + + + | CRP | <0.4Comment: Testing | <0.5 mg/dL | [facility] | | | | performed at [facility];[address] | | LABORATORY | | | | [address];[place] | | | | | | [address] | | | | + + + + + + + + | Specimen | + + | Blood | + + + + + + + | Performing | Address | City/State/Zipcode | Phone Number | | Organization | | | | + + + + + | [facility] | [address] | [place] [address] | [phone] | + + + + + Comprehensive [...] | >60Comment: GFR <60: | >60 | [facility] | | | GFR | CHRONIC KIDNEY [...] | | | | | | MDRD IDKY traceable | | | | | | equation.Testing | | | | | | performed at [facility] | | | | | | [facility];[place], [place] | | | | | | [address] | | | | + + + + + + + + | Specimen | + + | Blood | + + + + + + + | Performing | Address | City/State/Zipcode | Phone Number | | Organization | | | | + + + + + | [facility] | [address] | [place] [address] | [phone] | + + + + + XR [...] | | | | | ONLY, -COMPUTER (548), | | | | | | editor map BRIAN KIMBALL | | | | | | ([id number]) on 12/25/2019 | | | | | [...] | | | + +---------+ + + MRI Cervical Spine w wo Contrast (12/23/2019 12:00 AM PDT) + + | Specimen | + + | | + + + + + | Narrative | Performed At | + + + | External films for comparison only | [facility] | | | | | No results will be in the chart. | | + + + + +---------+ + + | Performing | Address | City/State/Zipcode | Phone Number | | Organization | | | | + +---------+ + + | [facility] | | | | + +---------+ + + from Last 3 Months Insurance + +--------+ +--------+ [...] | [employer] | [employer] | [id number] | 04/10/ | [phone] | | Medica | | MEDICAID HMO | HEALTH | | 2015-P | 1 | | id | | | MDCD | | resent | | | | | | [place] | | | | | | + +--------+ +--------+ +---------+--------+ | [employer] | [employer] | [id number] | | [phone] | | Medica | | MEDICAID HMO | HEALTH | | 020-Pr | 1 | | id | | | MDCD | | esent | | | | | | [place] | | | | | | + +--------+ +--------+ +---------+--------+ + +--------+ +--------+ + + | Guarantor Name | Accoun | Relation to | Date | Phone | Billing Address | | | t Type | Patient | of | | | | | | | | | | + +--------+ +--------+ + + | Cecilio Browne | Person | Self | [birth year] | [address] | | | al/Fam | | 1971 | [phone] | [place] [address] | | | [place]ole | | | 6 (Home) | | + +--------+ +--------+ + + | PavanCecilio | Person | Self | [birth year] | | [address] | | | al/Fam | | 1971 | [phone] | [place] [address] | | | nicole | | | 6 (Home) | | + +--------+ +--------+ + + Advance Directives + + + + + | Type | Date Recorded | Patient | Explanation | | | | [employer] Deployment Lead | | + + + + + | Power of | | | | | Customer Service Administrator | | | | + + + + + | Advance | 06/23/2014 | | | | Directive | 10:27 AM | | | + + + + +
--- OUTSIDE RECORDS SUMMARY | ~2020-01-20 | XMS | Encounter Summary ---
Demographics + + + | Address | [address] | | | [place] [address] | + + + | Home Phone | | + + + | Preferred Language | Unknown | + + + | Marital Status | Single | + + + | Denominational Affiliation | Unknown | + + + | Race | Unknown | + + + | Ethnic Group | Unknown | + + + Author + + + | Author | [facility] | | | and [place] | + + + | Organization | [facility] | | | [...] Team Providers + +------+ + | Care Geothermal Operations Manager Name | Role | Phone | + +------+ + PCP | Unavailable | + +------+ + Encounter Details +--------+ + + + + | Date | Type | Department | Care Team | Description | +--------+ + + + + | 10/03/ | Hospital | [facility] | | | | 2006 | Encounter | MED CTR XRAY [address] | | | | | | [address] | | | | | | [place] [address] | | | | | | [phone] | | | +--------+ + + + [...]
--- OUTSIDE RECORDS SUMMARY | ~2020-01-20 | XMS | Encounter Summary ---
Demographics + + + | Address | [address] | | | [place] [address] | + + + | Home Phone | | + + + | Preferred Language | Unknown | + + + | Marital Status | Single | + + + | Mosque Affiliation | Unknown | + + + | Race | Unknown | + + + | Ethnic Group | Unknown | + + + Author + + + | Author | [facility] | | | and [place] | + + + | Organization | [facility] | | [...] Team Providers + +------+ + | Care Can Filler Name | Role | Phone | + +------+ + PCP | Unavailable | + +------+ + Encounter Details +--------+ + + + + | Date | Type | Department | Care Team | Description | +--------+ + + + + | 11/14/ | Hospital | [facility] | | | | 2006 | Encounter | MED CTR XRAY [address] | | | | | | [address] | | | | | | [place] [address] | | | | | | [phone] | | | +--------+ + + + [...]
--- OUTSIDE RECORDS SUMMARY | ~2020-01-20 | XMS | Encounter Summary ---
Demographics + + + | Address | [address] | | | [place] [address] | + + + | Home Phone | | + + + | Preferred Language | Unknown | + + + | Marital Status | Single | + + + | Confucianist Affiliation | Unknown | + + + [...] Team Providers + +------+ + | Care Photographic Processor Name | Role | Phone | + +------+ + | No, Physician | PCP | Unavailable | + +------+ + Encounter Details +--------+ + + + + | Date | Type | Department | Care Team | Description | +--------+ + + + + | 12/23/ | Imaging | [facility] | Provider, | | | 2019 | Exam | MED CTR EXTERNAL | MD [address] | | | | | IMAGING [address] | [address] | | | | | [address] | [place] [address] | | | | | [place] [address] | | | | | | [phone] | | | +--------+ + + + [...] | + +--------+ + + + | MRI CERVICAL SPINE W | Routin | 12/23/2019 | | Results for this | | WO CONTRAST | e | 12:00 AM | | procedure are in the | | | | PDT | | results section. | + +--------+ + + + documented in this encounter Results MRI Cervical Spine w wo Contrast (12/23/2019 [...]
--- OUTSIDE RECORDS SUMMARY | ~2020-01-20 | XMS | Encounter Summary ---
Demographics + + + | Address | [address] | | | [place] [address] | + + + | Home Phone | | + + + | Preferred Language | Unknown | + + + | Marital Status | Single | + + + | Episcopal Affiliation | Unknown | + + + | Race | Unknown | + + + | Ethnic Group | Unknown | + + + Author + + + | Author | [facility] | | | and [place] | + + + | Organization | [facility] | | | [...] Team Providers + +------+ + | Care Tool Analyst Name | Role | Phone | + +------+ + PCP | Unavailable | + +------+ + Encounter Details +--------+ + + + + | Date | Type | Department | Care Team | Description | +--------+ + + + + | 08/11/ | Hospital | [facility] | | | | 2008 | Encounter | MED CTR MP INTRA OP | | | | | | [address] | | | | | | [place] | | | | | | [address] | | | | | | [phone] | | | +--------+ + + + [...]
--- OUTSIDE RECORDS SUMMARY | ~2020-01-20 | XMS | Encounter Summary ---
Demographics + + + | Address | [address] | | | [place] [address] | + + + | Home Phone | | + + + | Preferred Language | Unknown | + + + | Marital Status | Single | + + + | Anglican Affiliation | Unknown | + + + | Race | Unknown | + + + | Ethnic Group | Unknown | + + + Author + + + | Author | [facility] | | | and [place] | + + + | Organization | [facility] | | | and [place] | + [...] Team Providers + +------+ + | Care Medical Reimbursement Specialist Name | Role | Phone | + [...] Cuellar | sinusitis, | | | | [place], [place] | [place], [place] | recurrence not | | | | [address] | [address] | specified (Primary | | | | [phone] | | Dx) | +--------+---------+ + + [...] and Flonase nasal spray sent to pharmacy supervisor cloth winding some Afrin or [place]-Synephrine and use 2 [...]
--- OUTSIDE RECORDS SUMMARY | ~2020-01-20 | XMS | Encounter Summary ---
Demographics + + + | Address | [address] | | | [place] [address] | + + + | Home Phone [...] Team Providers + +------+ + | Care Founder And Chief Technical Officer Name | Role | Phone | + +------+ + PCP | Unavailable | + +------+ + Encounter Details +--------+ + + + + | Date | Type | Department | Care Team | Description | +--------+ + + + + | 03/11/ | Hospital | [facility] | | | | 2007 | Encounter | MED CTR XRAY [address] | | | | | | [address] | | | | | | [place] [address] | | | | | | [phone] | | | +--------+ + + + [...]
--- OUTSIDE RECORDS SUMMARY | ~2020-01-20 | XMS | Encounter Summary ---
Demographics + + + | Address | [address] | | | [place] [address] | + + + | Home Phone | | + + + | Preferred Language | Unknown | + + + | Marital Status | Single | + + + | Restorationist Affiliation | Unknown | + + + | Race | Unknown | + + + | Ethnic Group | Unknown | + + + Author + + + | Author | [facility] | | | and [place] | + + + | Organization | [facility] [...] Team Providers + +------+ + | Care Bpm Developer Name | Role | Phone | + +------+ + PCP | Unavailable | + +------+ + Encounter Details +--------+ + + + + | Date | Type | Department | Care Team | Description | +--------+ + + + + | 11/12/ | Hospital | [facility] | | | | 2011 | Encounter | MED CTR EMERGENCY | | | | | | CENTER [address] | | | | | | [place] | | | | | | [address] | | | | | | [phone] | | | +--------+ + + + [...] documented as of this encounter ED Notes Fidel Tejeda - 11/13/2011 6:24 PM PDTADDENDUM DATE: 11/13/2011 [...] Fidel Tejeda MD Emergency Medicine JOB #: [id number] EXT JOB #:[id number] EDITED: 11/15/2011 06:28 Fidel Coleman G - 11/13/2011 6:24 PM PDTDATE: 11/13/2011 HISTORY OF PRESENT ILLNESS: The patient is a 41-year-old gentleman who entered our emergen cy [facility] ent at [facility] on November 12 at approximately 1918, and [...] tobacco. He is here accompanied by his [facility] er. PHYSICAL EXAMINATION VITAL SIGNS: Blood pressure 152/103, pulse 62, respiratory rate 18, temperature 97.4 tympa david, O2 sa turation 100% on room air. [...] Fidel Tejeda MD Emergency Medicine JOB #: [id number] EXT JOB #:[id number] EDITED: 11/14/2011 14:03 documented in this encounter [...] | | METHOD 1 | | | [facility] | | [...] - 1.030 | [facility] | | | [place], | | | [facility] | | [...] + | [facility] | [address] | [place], [place] | [phone] | | [facility] | | [address] | | | - LABORATORY | | | | + + + + + | [facility] | [address] | [place], [place] | | | [facility] | | [address] | | | - LABORATORY | | | | + + + + + Traci INR (11/13/2011 8:52 PM PDT) + + + + + + | Component | Value | Ref Range | Performed | Pathologist | | | | | At | Signature | + + + + + + | Prothrombin | 12.6 | 11.3 - 13.9 | [facility] | | | Time | | seconds | [facility] | | | | [...] + | [facility] | [address] | [place], [place] | [phone] | | [facility] | | [address] | | | - LABORATORY | | | | + + + + + | [facility] | [address] | [place], [place] | | | [facility] | | [address], [facility] | | | - LABORATORY | [...] Patient Mean Value: 29.0 | seconds | [facility] | | | | seconds | [...] + | [facility] | [address] | [place] | [phone] | | [facility] | | [address] | | | - LABORATORY | | | | + + + + + | [facility] | [address] | [place], [place] | | | [facility] | | [address] | | | - LABORATORY | [...] | | Phosphatase | | | [facility] | | [...] | >60Comment: For | >60 mL/min/A | [place] | | | GFR | -Americans, | [...] 9.3 (L) | 12 - 20 | [place] | | | ine Ratio | | [...] + | [facility] | [address] | [place], [place] | [phone] | | [facility] | | [address] | | | - LABORATORY | | | | + + + + + | [facility] | [address] | [place], [place] | | | [facility] | | [address] [place] [address] | | | - LABORATORY | | [...] + | [facility] | [address] | [place] | [phone] | | [facility] | | [address] | | | - LABORATORY | | | | + + + + + | [facility] | [address] | [place], [place] | | | [facility] | | [address] [place] [address] | | | - LABORATORY | | | | + + + + + US Renal Limited (11/13/2011 6:24 PM PDT) + + | Specimen | + + | | + + + + + | Narrative | Performed At | + + + | [facility] Diagnostic Imaging Department | [facility] | | [address] [facility] | [facility] | | RENAL ULTRASOUND: 11/13/2011 | DIA IMG | | CLINICAL HISTORY: BLOOD IN [...] | | 08:59 Transcribed Date/Time: 11/14/2011 09:25 Log Operations Coordinator: | | | <Electronically Signed by Adilson Yi MD> 11/14/11 1158 | | + + + + + | Procedure Note | + + | Steven, Rad Conversion - 09/03/2013 11:08 AM [facility] | | Diagnostic Imaging Department [address] [place] [address] | | RENAL ULTRASOUND: 11/13/2011 CLINICAL HISTORY: [...] 08:59 | |Transcribed Date/Time: 11/14/2011 09:25 | |Log Operations Coordinator: | |<Electronically Signed by Adilson Yi MD> 11/14/11 1158 | + + + +---------+ + + | Performing | Address | City/State/Zipcode | Phone Number | | Organization | | | | + +---------+ + + | [place] | | | | | [facility] | | | | + +---------+ + + CT Abdomen Pelvis w Contrast (11/13/2011 6:24 PM PDT) + + | Specimen | + + | | + + + + + | Narrative | Performed At | + + + | [facility] Diagnostic Imaging Department | [place] | | [address] | [place] | | ENHANCED CT ABDOMEN AND PELVIS | [facility] | | 11/13/2011, 2205 HOURS CLINICAL HISTORY: [...] ER STAFF BY THE | | | [facility] RADIOLOGIST ON 11/13/2011, AT 2237 HOURS. Dictated | | | Date/Time: 11/14/2011 09:13 Transcribed Date/Time: 11/14/2011 | | | 09:24 Log Operations Coordinator: <Electronically Signed by Kirk Yates | | | MD Chandrakant> 11/14/11 2240 | | + + + + + | Procedure Note | + + | Steven, Rad Conversion - 09/03/2013 11:08 AM [facility] | | Diagnostic Imaging Department | | [address] [facility] | | | | | | | [...] THE ER STAFF BY | | [facility] ON 11/13/2011, AT 2237 HOURS. | | | | Dictated Date/Time: 11/14/2011 09:13 | | Transcribed Date/Time: 11/14/2011 09:24 | | Log Operations Coordinator: | | <Electronically Signed by Kirk Stallings MD> 11/14/11 2240 | + + + +---------+ + + | Performing | Address | City/State/Zipcode | Phone Number | | Organization | | | | + +---------+ + + | [place] | | | | | [facility] | | | | + +---------+ + + documented in this encounter Visit Diagnoses Not on filedocumented in this encounter"
[~2020-01-20 19:03] MED LIST changes: +BISACODYL5 MG PO; +GENTLE LAXATIVE10 MG PR; +LIDOCAINE1 EAC1 TOP; +LYRICA50 MG PO; +MELATONIN3 M3 PO; +RISPERDAL1 MG PO; +SENNA8.6 MG PO; +SUBOXONE 8 MG-1 EAC1 SL; +TIZANIDINE HCL4 M1 PO; +TYLENOL325 M1 PO; +ZANAFLEX4 M1 PO
--- OUTSIDE RECORDS SUMMARY | 2020-01-20 19:06 | XMS ---
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(s) in the past 18 months Most recent security events: Elopement at [facility] 10/07/2018 18:55 - Other Details: PATIENT LWBS- CRITERIA MET - Group Notification - 6 ED Visits in 6 Months - [facility] - Has Care Guidelines - [facility] - 3 Facilities in 90 Days - [facility] - 2 Visits in 30 Days CARE PROVIDERS DEANDRE MCCRARY [facility] 02/03/2018-Current PHONE: [phone] [facility] 07/21/2018-Current PHONE: [phone] STEFFEN BENSON [facility] 12/14/2019-Current PHONE: [phone] [facility] Internal Medicine 09/24/2018-[facility] [place] PHONE: [phone] Guidelines Source: [facility] [place] Guidelines Date: 10/13/2018 Care Coordination: Currently engaged in mental health services with [employer].\T\[facility]; Please contact [employer] with mental health concerns.\T\[facility]; [phone]. Care History Medical/Surgical 12/21/2019 [facility] - [facility] IS UNABLE TO CONTACT PATIENT- PATIENT DOES NOT HAVE AN ADDRESS AND OR PHONE NUMBER LISTED. - PLEASE PROVIDE Amol-ROSIE CONTACT NUMBER TO PATIENT- [phone]. 12/14/2019 [facility] Care Recommendation: - PLEASE REVIEW PDMP ON THE B[place] - USE EXTREME CAUTION IN GIVING NARCOTICS. - Avoid Discharge Narcotic prescriptions if at all possible. Physician discretion. E.D. VISIT COUNT (12 MO.) 1 [facility] 1 [facility] 1 [facility] NOTE: Visits indicate total known visits. ED/UCC VISIT TRACKING (12 MO.) 01/20/2020 19:05 [facility] [place] TYPE: Emergency COMPLAINT: - SWALLOWING PROBLEM/NECK PAIN 01/18/2020 07:34 [facility] [place] TYPE: Emergency COMPLAINT: - SKIN PROBLEM, FEVER 12/25/2019 12:14 Georgie CALDERÓN TYPE: Emergency COMPLAINT: - WEAKNESS DIAGNOSES: - Cervical myelopathy 12/24/2019 16:16 [facility] TYPE: Emergency DIAGNOSES: - Other cervical disc displacement, high cervical region - Numbness - Extremity Weakness - Other symptoms and signs involving the musculoskeletal system 12/23/2019 12:55 [facility] [place] TYPE: Emergency COMPLAINT: - NUMBNESS DIAGNOSES: - Essential (primary) hypertension - Allergy status to other drugs, medicaments and biological sub - Anxiety disorder, unspecified - Allergy status to other antibiotic agents status - Anesthesia of skin - Other cervical disc degeneration, high cervical region - Nicotine dependence, unspecified, uncomplicated 12/17/2019 16:54 [facility] [place] TYPE: Emergency COMPLAINT: - NUMBNESS/WEAKNESS DIAGNOSES: - Nicotine dependence, unspecified, uncomplicated - Radiculopathy, cervical region - Allergy status to other drugs, medicaments and biological sub - Essential (primary) hypertension - Anesthesia of skin - Allergy status to other antibiotic agents status 12/11/2019 13:06 [facility] [place] TYPE: Emergency COMPLAINT: - NECK/BACK PAIN, NUMBNESS IN HANDS DIAGNOSES: - Anxiety disorder, unspecified - Allergy status to other antibiotic agents status - Radiculopathy, cervical region - Allergy status to other drugs, medicaments and biological sub - Essential (primary) hypertension - Nicotine dependence, unspecified, uncomplicated - Cervicalgia 09/17/2019 15:56 [place] [place] TYPE: Emergency COMPLAINT: - COUGH, FEVER DIAGNOSES: - 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 TYPE: Neuro Surgery COMPLAINT: - WEAKNESS DIAGNOSES: - Disease of spinal cord, unspecified - Cervical myelopathy [email or web address]
== END 2020-01-20 21:25 | disposition left against medical advice (07) ==
LOC: ED 19:03
DX: M54.2 Cervicalgia (principal); I10 Essential (primary) hypertension; F17.200 Nicotine dependence, unspecified, uncomplicated; Z88.8 Allergy status to other drugs, medicaments and biological substances; Z88.1 Allergy status to other antibiotic agents; Z79.899 Other long term (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 therapy; Z98.1 Arthrodesis status
CPT/HCPCS: 72125; 96372; 99283-25; J3360

== ENCOUNTER 2020-03-08 12:41 | Emergency (ER) | payer OTHER ==
[~2020-03-08] VITALS: Ht 177.8 cm; Wt 90.7 kg
--- OUTSIDE RECORDS SUMMARY | ~2020-03-08 | XMS | Encounter Summary ---
Demographics + + + | Address | [address] | | | [place] [address] | + + + | Home Phone | | + + + | Preferred Language | Unknown | + + + | Marital Status | Single | + + + | Samaritan Affiliation | Unknown | + + + | Race | White | + + + | Ethnic Group | Not or | + + + Author + + + | Author | [facility] | | | and [place] | + + + | Organization | [facility] | | | and [...] Team Providers + +------+ + | Care Forest Ecologist Name | Role | Phone | + +------+ + PCP | Unavailable | + +------+ + Encounter Details +--------+ + + + + | Date | Type | Department | Care Team | Description | +--------+ + + + + | 09/16/ | Hospital | [facility] | | | | 2008 | Encounter | MED CTR XRAY [address] | | | | | | [address] [place] | | | | | | [place] [address] | | | | | | [phone] | | | +--------+ + + + [...] Not on filedocumented as of this encounter Visit Diagnoses Not on filedocumented in this encounter"
--- OUTSIDE RECORDS SUMMARY | ~2020-03-08 | XMS | Encounter Summary ---
Demographics + + + | Address | [address] | | | [place] [address] | + + + | Home Phone | | + + + | Preferred Language | Unknown | + + + | Marital Status | Single | + + + | Orthodoxy Affiliation | Unknown | + + + | Race | White | + + + | Ethnic Group | Not or | + + + Author + + + | Author | [facility] | | | and [place] | + + + | Organization | [facility] | | | [...] Team Providers + +------+ + | Care Siebel Solution Architect Name | Role | Phone | + +------+ + PCP | Unavailable | + +------+ + Encounter Details +--------+ + + + + | Date | Type | Department | Care Team | Description | +--------+ + + + + | 11/14/ | Hospital | [facility] | | | | 2006 | Encounter | MED CTR XRAY [address] | | | | | | [address] | | | | | | [place] [address] | | | | | | [phone] | | | +--------+ + + + [...]
--- OUTSIDE RECORDS SUMMARY | ~2020-03-08 | XMS | Encounter Summary ---
Demographics + + + | Address | [address] | | | [place] [address] | + + + | Home Phone | | + + + | Preferred Language | Unknown | + + + | Marital Status | Single | + + + | Yarsani Affiliation | Unknown | + + + | Race | White | + + + | Ethnic Group | Not or | + + + Author + + + | Author | [facility] | | | and [place] | + + + | Organization | [facility] | | [...] Team Providers + +------+ + | Care Cable Armorer Name | Role | Phone | + +------+ + PCP | Unavailable | + +------+ + Encounter Details +--------+ + + + + | Date | Type | Department | Care Team | Description | +--------+ + + + + | 03/13/ | Abstract | [facility] | DATA MIGRATION JULIO CÉSAR | | | 2011 | | Conversion Location | SR | | | | | [address] | | | | | | [place], [place] | | | | | | [address] | | | | | | [phone] | | | +--------+ + + + [...] + + + | Blood Pressure | 136/100 | 11/29/2009 12:00 AM | | | | | PDT | | + + + + + | Pulse | - | - | | + + + + + | Temperature | - | - | | + + + + + | Respiratory Rate | - | - | | + + + + + | Oxygen Saturation | - | - | | + + + + + | Inhaled Oxygen | - | - | | | Concentration | | | | + + + + + | Weight | 87.8 kg (193 lb 9.6 | 08/05/2008 12:00 AM | | | | oz) | PST | | + + + + + | Height | 176 cm (5' 9.29") | 08/05/2008 12:00 AM | | | | | PST | | + + + + + | Body Mass Index | 28.35 | 08/05/2008 12:00 AM | | | | | PST | | + + + + + documented in this encounter Plan of Treatment Not on filedocumented as of this encounter Visit Diagnoses Not on filedocumented in this encounter
--- OUTSIDE RECORDS SUMMARY | ~2020-03-08 | XMS | Encounter Summary ---
Demographics + + + | Address | [address] | | | [place] [address] | + + + | Home Phone | | + + + | Preferred Language | Unknown | + + + | Marital Status | Single | + + + | Islam Affiliation | Unknown | + + + | Race | White | + + + | Ethnic Group | Not or | + + + Author + + + | Author | [facility] | | | and [place] | + + + | Organization | [facility] | | | [...] Team Providers + +------+ + | Care Broomcorn Seeder Name | Role | Phone | + +------+ + PCP | Unavailable | + +------+ + Encounter Details +--------+ + + + + | Date | Type | Department | Care Team | Description | +--------+ + + + + | 07/20/ | Hospital | [facility] | Huber Ivory, | | | 2009 | Encounter | MEDICAL CENTER | MD Zackary DA SILVA | | | | | CLINICAL DECISION | [address] [place], | | | | | [address] [facility] | [place] [address] | | | | | [place] | [phone] | | | | | [address] | | | | | | [phone] | | | +--------+ + + + [...] Performed At | + + + | [facility] | | | [facility] [address] | | | , | | | [id number]/RADIOLOGY Patient Name: MARIE BROWNE Date of : | | | 1970 Medical Record: [id number] Account: [id number] | | | PRO// Exam Date/Time: 07/14/2009 [...] | about the second digit. Read by RHONDA FLETCHER MD | | | 07/15/2009 07:41 A Electronically Signed by RHONDA FLETCHER MD | | | 07/15/2009 05:50 P A | | | 05:00 P [id number]/ cc: MD RHONDA AGUIAR | | | MD DAMON FLETCHER DO | | + + + + + | Procedure Note | + + | Dann Harris - 02/22/2019 5:05 PM PDT | | [facility] | | [facility] [address] | | , | | | | [id number]/RADIOLOGY | | | | Patient Name: MARIE BROWNE | | Date of : 1970 | | Medical Record: [id number] | | Account: [id number] | | PRO// | | | | [...] | A | | P | | Neyda/[id number]/ | | cc: HUBER IVORY MD | | RHONDA FLETCHER MD | | DAMON WOODSON DO | + + documented in this encounter Visit Diagnoses Not on filedocumented in this encounter"
--- OUTSIDE RECORDS SUMMARY | ~2020-03-08 | XMS | Encounter Summary ---
Demographics + + + | Address | [address] | | | [place] [address] | + + + | Home Phone | | + + + | Preferred Language | Unknown | + + + | Marital Status | Single | + + + | Taoist Affiliation | Unknown | + + + | Race | White | + + + | Ethnic Group | Not or | + + + Author + + + | Author | [facility] | | | and [place] | + + + | Organization | [facility] | | | [...] Team Providers + +------+ + | Care Gelatin Powder Mixer Name | Role | Phone | + +------+ + PCP | Unavailable | + +------+ + Encounter Details +--------+ + + + + | Date | Type | Department | Care Team | Description | +--------+ + + + + | 08/28/ | Hospital | [facility] | | | | 2006 | Encounter | MED CTR GENERIC IP | | | | | | CONV DEPT [address] | | | | | | [address] [place], | | | | | | [place] [address] | | | | | | [phone] | | | +--------+ + + + [...]
--- OUTSIDE RECORDS SUMMARY | ~2020-03-08 | XMS | Encounter Summary ---
Demographics + + + | Address | [address] | | | [place] [address] | + + + | Home Phone | | + + + | Preferred Language | Unknown | + + + | Marital Status | Single | + + + | Mu-Ism Affiliation | Unknown | + + + | Race | White | + + + | Ethnic Group | Not or | + + + Author + + + | Author | [facility] | | | and [place] | + + + | Organization | [facility] | | | [...] Team Providers + +------+ + | Care Hand Inspector Name | Role | Phone | + +------+ + PCP | Unavailable | + +------+ + Encounter Details +--------+ + + + + | Date | Type | Department | Care Team | Description | +--------+ + + + + | 08/11/ | Hospital | [facility] | | | | 2008 | Encounter | MED CTR MP INTRA OP | | | | | | [address] | | | | | | [place] | | | | | | [address] | | | | | | [phone] | | | +--------+ + + + [...]
--- OUTSIDE RECORDS SUMMARY | ~2020-03-08 | XMS | Encounter Summary ---
Demographics + + + | Address | [address] | | | [place] [address] | + + + | Home Phone | | + + + | Preferred Language | Unknown | + + + | Marital Status | Single | + + + | Baptism Affiliation | Unknown | + + + | Race | White | + + + | Ethnic Group | Not or | + + + Author + + + | Author | [facility] | | | and [place] | + + + | Organization | [facility] | | [...] Team Providers + +------+ + | Care Music Copyist Name | Role | Phone | + +------+ + PCP | Unavailable | + +------+ + Encounter Details +--------+ + + + + | Date | Type | Department | Care Team | Description | +--------+ + + + + | 08/06/ | Hospital | [facility] | | | | 2008 | Encounter | MED CTR XRAY [address] | | | | | | [address] | | | | | | [place] [address] | | | | | | [phone] | | | +--------+ + + + [...]
--- OUTSIDE RECORDS SUMMARY | ~2020-03-08 | XMS | Encounter Summary ---
Demographics + + + | Address | [address] | | | [place] [address] | + + + | Home Phone | | + + + | Preferred Language | Unknown | + + + | Marital Status | Single | + + + | Moravian Affiliation | Unknown | + + + | Race | White | + + + | Ethnic Group | Not or | + + + Author + + + | Author | [facility] | | | and [place] | + + + | Organization | [facility] | | | [...] Team Providers + +------+ + | Care Produce Sorter Name | Role | Phone | + [...] | | | CENTER [address] | [facility] | | | | | [address] [place], [place] | [employer] [place] [address] | | | | | [address] | [phone] | | | | | [phone] | | | +--------+ + + + [...] - 1.030 | EXTERNAL | | | [place], | | | LAB | | | [...]
--- OUTSIDE RECORDS SUMMARY | ~2020-03-08 | XMS | Encounter Summary ---
Demographics + + + | Address | [address] | | | [place] [address] | + + + | Home Phone | | + + + | Preferred Language | Unknown | + + + | Marital Status | Single | + + + | Buddhist Affiliation | Unknown | + + + | Race | White | + + + | Ethnic Group | Not or | + + + Author + + + | Author | [facility] | | | and [place] | + + + | Organization | [facility] | | [...] Team Providers + +------+ + | Care Wellness Assistant Name | Role | Phone | [...] | MED CTR EXTERNAL | MD Emilia [address] | | | | | IMAGING [address] | [address] | | | | | [address] | [place] [address] | | | | | [place] [address] | | | | | | [phone] | | | +--------+ + + + [...]
--- OUTSIDE RECORDS SUMMARY | ~2020-03-08 | XMS | Encounter Summary ---
Demographics + + + | Address | [address] | | | [place] [address] | + + + | Home Phone [...] Author + + + | Author | [facility] | | | and [place] | + + + | Organization | [facility] | | | and [place] | + [...] Team Providers + +------+ + | Care Master Deputy Sheriff Court Security Name | Role | Phone | + [...] + + | 06/23/ | Emergency | [facility] | [place], | [facility] ([facility]) | | 2013 | | MED CTR EMERGENCY | Flaquito Kay MD [address] | (Primary Dx); | | | | CENTER [address] | [address] [place] | Polysubstance abuse | | | | [place], [place] | [place] [address] | | | | | [address] | [phone] | | | | | [phone] | | | +--------+ + + + [...] might be differe nt from the original. [facility] Marie Browne Emergency Department Encounter Note [address] [place] [address] PCP:Physician Unknown PA [phone] CHIEF COMPLAINT: Chief Complaint Patient presents with Depression Anxiety ED Room: ED03/ED03 HPI Marie Browne is a 43 y.o. male who presents to the Emergency Department for evaluation. The patient is from [place] and states he has felt increasingly concerned. It sounds li ke he has been evicted from the grounds of the Police Department for trespassing. He states he feels like people know where his (who has left him) is, but they will not tell him. He states he feels at times like he is being chased by people and feels paranoid about rahda t. He denies any active suicidal or [...] Clear Clear PH UA 5.5 5.0-8.0 Specific [facility] >=1.030 1.001-1.030 PROTEIN UA Trace (*) Negative [...] - 1.030 | [facility] | | | [facility], | | | [facility] | | [...] | | Cells, | | | [facility] | | | Urine | | | MEDICAL | | | | | | CENTER - | | | | | | LABORATORY | | + + + + + + | Red Blood | 0-2 | 0 - 2 /HPF | [facility] | | | Cells, | | | [facility] | | | Urine | | | MEDICAL | | | | | | CENTER - | | | | | | LABORATORY | | + + + + + + | Squamous | 0-2 | 0 - 2 /LPF | [facility] | | | Epithelial | | | [facility] | | | Cells, | | | MEDICAL | | | Urine | | | CENTER - | | | | | | LABORATORY | | + + + + + + | Bacteria, | Negative | Negative /HPF | [facility] | | | Urine | | | [facility] | | [...] + | [facility] | [address] | [place] | [phone] | | [facility] | | [address] | | | - LABORATORY | | | | + + + + + | [facility] | [address] | [place], [place] | | | [facility] | | [address] | | | - LABORATORY [...] + | [facility] | [address] | [place] | [phone] | | [facility] | | [address] | | | - LABORATORY | | | | + + + + + | [facility] | [address] | [place], [place] | | | [facility] | | [address], [facility] | | | - [...] | | en Level | | | [facility] | | [...] [address] | [place] | [phone] | | [facility] | | [address] | | | - LABORATORY | | | | + + + + + | [facility] | [address] | [place] | | | [facility] | | [address] | | | - LABORATORY | | | | + + + + + Salicylate Level (06/23/2014 10:49 AM PST) + +-------+ + + + | Component | Value | Ref Range | Performed | Pathologist | | | | | At | Signature | + +-------+ + + + | Salicylate | <4.0 | <30.0 mg/dL | [facility] | | | Level | | | [facility] | [...] + | [facility] | [address] | [place], [place] | [phone] | | [facility] | | [address] | | | - LABORATORY | | | | + + + + + | [facility] | [address] | [place], [place] | | | [facility] | | [address] | | | - LABORATORY | | | | + + + + + Ethanol (06/23/2014 10:49 AM PST) + +-------+ + + + | Component | Value | Ref Range | Performed | Pathologist | | | | | At | Signature | + +-------+ + + + | ALCOHOL, | <5 | <400 mg/dL | [facility] | | | SERUM/PLASM | | | [facility] | | | A | | [...] [address] | [place] | [phone] | | [facility] | | [address] | | | - LABORATORY | | | | + + + + + | [facility] | [address] | [place] | | | [facility] | | [address], [facility] | | | - [...] | | | | | mmol/L | [facility] | | | | [...] | | | | | mg/dL | [facility] | | | | | | MEDICAL | | | | | | CENTER - | | | | | | LABORATORY | | + + + + + + | eGFR, | >60Comment: GLOMERULAR | >=60 | [facility] | | | non- | FILTRATION | mL/min/1.73m2 | [facility] | | | Nepalese | RATE,ESTIMATED | | MEDICAL | | | | mL/min/1.69m7Rxdw than | | CENTER - | | [...] | 9.4 | 8.3 - 10.5 | [facility] | | | | | mg/dL | [facility] | | | | | | [...] | | ine Ratio | | | [facility] | | [...] + + | [facility] | [address] | [place] | [phone] | | [facility] | | [address] | | | - LABORATORY | | | | + + + + + | [facility] | [address] | [place] | | | [facility] | | [address] | | | - LABORATORY [...] | | | Cells | | | [facility] | | | | | | MEDICAL | | | | | | CENTER - | | | | | | LABORATORY | | + +-------+ + + + | Red Blood | 5.36 | 4.30 - 5.70 | [facility] | | | Cells | | M/uL | [facility] | | | | [...] | | Neutrophils | | K/uL | [facility] | [...] | Eosinophils | | K/uL | [facility] | | | | | | MEDICAL | | | | | | CENTER - | | | | | | LABORATORY | | + +-------+ + + + | Absolute | 0.00 | 0.00 - 0.10 | [facility] | | | Basophils | | K/uL | [facility] | | | | [...] + | [facility] | [address] | [place] | [phone] | | [facility] | | [address] | | | - LABORATORY | | | | + + + + + | [facility] | [address] | [place], [place] | | | [facility] | | [id number] [place] [address] | | | - LABORATORY | | [...]
--- OUTSIDE RECORDS SUMMARY | ~2020-03-08 | XMS | Clinical Summary ---
Demographics + + + | Address | [address] | | | [place] [address] | + + + | Home Phone [...] Author + + + | Author | [facility] | | | and [place] | + + + | Organization | [facility] | | | [...] Team Providers + +------+ + | Care Software Asset Manager Name | Role | Phone | [...] | Haloperidol | Anaphylaxis | High | 10/14/19 | Sob/ throat | | | | [...] | + + + + + | Hepatitis C | | | | | Screening | 0 | | | + + [...] | | n - | | | 06/25/ | | | 2020 | | | [...] L?MRN: | | | | | | [id number] | | | [id number] | | | riteri | | | [...] | | | St. | | | [place] | | | y | | | [...] | | | lags | | | [place] | | | ED | | | Dispar | | | ity | | | Measur | | | e - | | | [place] | | | has | | | [...] | | | s. | | | [place] | | | | | | Health [...] | | | By: | | | [place] | | | | | | Health [...] | | | St. | | | [place] | | | y | | | [...] | | | St. | | | [place] | | | y H. | | [...] | | | St. | | | [place] | | | y H. | | [...] | | | St. | | | [place] | | | y H. | | [...] | | | St. | | | [place] | | | y H. | | [...] | | | St. | | | [place] | | | y H. | | [...] | | | TS | | | Child And Family Services Worker | | | al | | [...] SARS-CoV-2, | NEGATIVEComment: This | NEG | [facility] | | | NAAT | test was [...] | | | | | performed at [facility] | | | | | | [facility];[place], [place] | | | | | | [address] | | | | + + + + + + + + | Specimen | + + | Tissue - Entire | | nasopharynx (body | | structure) | + + + + + + + | Performing | Address | City/State/Zipcode | Phone Number | | Organization | | | | + + + + + | [facility] | [address] | [place] [address] | [phone] | + + + + + Sedimentation Rate (12/24/2019 5:03 PM PDT) + + + + + + | Component | Value | Ref Range | Performed | Pathologist | | | | | At | Signature | + + + + + + | ESR | <1Comment: Testing | 0 - 20 mm/Hr | [facility] | | | | performed at [facility];[address] | LABORAT[address] | | | [address];[place] | | | | | | [address] | | | | + + + + + + + + | Specimen | + + | Blood | + + + + + + + | Performing | Address | City/State/Zipcode | Phone Number | | Organization | | | | + + + + + | [facility] | [address] | [place] [address] | [phone] | + + + + + CBC [...] | | | Absolute | performed at [facility];[address] | [address] | LABORATORY | | | | [facility];[place], [place] | | | | | | [address] | | | | + + + + + + + + | Specimen | + + | Blood | + + + + + + + | Performing | Address | City/State/Zipcode | Phone Number | | Organization | | | | + + + + + | [facility] | [address] | [place] [address] | [phone] | + + + + + C-Reactive Protein (12/24/2019 5:03 PM PDT) + + + + + + | Component | Value | Ref Range | Performed | Pathologist | | | | | At | Signature | + + + + + + | CRP | <0.4Comment: Testing | <0.5 mg/dL | [facility] | | | | performed at [facility];[address] | LABORATORY | | | | [address];[place] | | | | | | [address] | | | | + + + + + + + + | Specimen | + + | Blood | + + + + + + + | Performing | Address | City/State/Zipcode | Phone Number | | Organization | | | | + + + + + | [facility] | [address] | [place] [address] | [phone] | + + + + + Comprehensive [...] 16 | 10 - 65 U/L | [place] | | | | | | LABORATORY [...] | | | | | | MDRD IDAZ traceable | | | | | | equation.Testing | | | | | | performed at [facility];[address] | | | | | | [facility];[place], [place] | | | | | | [address] | | | | + + + + + + + + | Specimen | + + | Blood | + + + + + + + | Performing | Address | City/State/Zipcode | Phone Number | | Organization | | | | + + + + + | [facility] | [address] | [place] [address] | [phone] | + + + + + XR [...] (500), | | | | | | 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 BRIAN KIMBALL | | | | [...] | [employer] | [employer] | [id number] | 04/10/ | [phone] | | [employer] | | MEDICAID HMO | HEALTH | | 2015-P | 1 | | id | | | MDCD | | resent | | | | | | [place] | | | | | | + +--------+ +--------+ +---------+--------+ | [employer] | [employer] | [id number] | | [phone] | | Medica | | MEDICAID HMO [...] | 1971 | [phone] | [place] [address] | | | nicole | | | 6 (Home) | | + +--------+ +--------+ + + | Cecilio Browne | Person | Self | [birth year] | [address] | | | al/Fam | | 1971 | [phone] | [place] [address] | | | nicole | | | 6 (Home) | | + +--------+ +--------+ + + | Cecilio Browne | Person | Self | [birth year] | [address] | | | al/Fam | | 1971 | [phone] | [place] [address] | | | nicole | | | 6 (Home) | | + +--------+ +--------+ + + Advance Directives + + + + + | Type | Date Recorded | Patient | Explanation | | | | Order Entry Technician | | + + + + + | Power of | | | | | Chromium Plater | | | | + + + + + | Advance | 06/23/2014 | | | | Directive | 10:27 AM | | | + + + + +
--- OUTSIDE RECORDS SUMMARY | ~2020-03-08 | XMS | Encounter Summary ---
Demographics + + + | Address | [address] | | | [place] [address] | + + + | Home Phone | | + + + | Preferred Language | Unknown | + + + | Marital Status | Single | + + + | Sikh Affiliation | Unknown | + + + [...] Providers + +------+ + | Care Finisher Machine Name | Role | Phone | + +------+ + PCP | Unavailable | + +------+ + Encounter Details +--------+ + + + + | Date | Type | Department | Care Team | Description | +--------+ + + + + | 11/12/ | Hospital | [facility] | | | | 2011 | Encounter | [facility] | | | | | | CENTER [address] | | | | | | [place] | | | | | | [id number] | | | | | | [phone] | | | +--------+ + + + [...] documented as of this encounter ED Notes StasyinaFidel Hussein - 11/13/2011 6:24 PM PDTADDENDUM DATE: 11/13/[address] scan showed a nonobstructing right pelvic calculus. No evidence of renal obstructio n. The ul trasound that we did before this showed no obstruction. The white count was 8.7 , hemoglobin 14, plat elets 239,000. The liver enzymes were benign. Bilirubin slightly up at 1.6. BUN 9, and creatinine 0.97. The PT was 12.6, INR of 1, PTT 29.2. Urine is negat [place] except the red cells are too numerous to count. There are no white cells present. The patient will be going on home with a prescription for naproxen to follow up with his pr ivate doct or in 1 to 2 days. Impression is that he passed a ureteral stone, and there is another large one, 3. 5-x-6 mm that is sitting in the pelvis of the right kidney waiting to come out, but that is not the c ause of today's presentation. IMPRESSION ACUTE RIGHT URETERAL STONE, PASSED. DISPOSITION: He will go home with a prescription for naproxen. Follow up with his private doctor in 1 to 2 days, and should do very nicely. DICTATED BY: Fidel Tejeda MD Emergency Medicine JOB #: [id number] EXT JOB #:[id number] EDITED: 11/15/2011 06:28 Fidel Coleman G - 11/13/2011 6:24 PM PDTDATE: 11/13/2011 HISTORY OF PRESENT ILLNESS: The patient is a 41-year-old gentleman who entered our emergen cy departm ent at [facility] on November 12 at approximately 1918, and I saw him at about 195 5. The patient complains of bloody urine that he noted earlier in the day. He does have a history of one previous kidney stone and does have some discomfort tomasa ng his right flank. There has been no trau ma, no seizure, no syncope. The intensity of the presentation is mild to moderate. He seems to be silviano y well-compensated, lying quietly on the bed, giving a coherent history. The pain is an aching pain, actually without particular radiation, and he has had it for about 3 hours since its onset. No other associated signs or symptoms. No nausea or vomiting, diarrhea or dysuria. REVIEW OF SYSTEMS: We considered a 14 point review of systems and the only positives were r elative to the history of present illness, otherwise all systems negative. PAST SURGERIES: Surgeries on his left shoulder twice, anterior cervical fusions on his neck , laparosc opic cholecystectomy, infected root canals, and a vasectomy in the distant past. FAMILY HISTORY: Nothing in particular in the family is relevant except that he has an emot ional prob dilshad now and then. His marriage of 16 years is coming to an end. SOCIAL HISTORY: Does not use drugs, alcohol or tobacco. He is here accompanied by his [facility]. PHYSICAL EXAMINATION VITAL SIGNS: Blood pressure 152/103, pulse 62, respiratory rate 18, temperature 97.4 tympa advid, O2 sa turation 100% on room air. GENERAL APPEARANCE: He is an ambulatory entry into the emergency department. It should be mentioned also that he has some discomfort in the lower abdomen. 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 HEENT: Head is normocephalic, atraumatic. Tympanic membranes are negative. Pupils equal an d reactive to light. Extraocular movements full. Pharynx benign without any oropharyngeal e xudates. NECK: Without nodes or masses. The scar from the anterior cervical fusion is readily appar ent. CHEST: Clear to auscultation. HEART: Regular rhythm without murmurs, gallops or rubs. ABDOMEN: Soft, nontender. No real tenderness at all. : Penis and testes normal. EXTREMITIES: Lower extremities free of edema. All extremities move well. The only deformit y is in th at right upper extremity. It essentially is between the shoulder and the elbow. BACK: Benign. CVA is mildly tender on the right, not on the left, and the spine is straight and nonte nder. NEUROLOGIC: Cranial nerves 2-12 intact. Motor, sensory, coordination all benign. PSYCHIATRIC: He is completely stable and reasonable. No extraneous conversation. DERMATOLOGIC: No particular skin lesions are seen. EMERGENCY DEPARTMENT COURSE: We are going to assess him with basic labs. I will do an ultr asound of his kidneys. The urine is dipped positive for blood. We will give him Toradol 60 mg IM for his discom forts. IMPRESSION DICTATED BY: Fidel Tejeda MD Emergency Medicine JOB #: [id number] EXT JOB #:[id number] EDITED: 11/14/2011 14:03 documented in this encounter Plan of Treatment Not on filedocumented as of this encounter Procedures + +--------+ + + + | Procedure Name | Priori | Date/Time | Associated Diagnosis | Comments | | | ty | | | | + +--------+ + + + | URINALYSIS, REFLEX | Routin | 11/13/2011 | | Results for this | | MICROSCOPIC AND/OR | e | 8:54 PM | | procedure are in the | | CULTURE | | PDT | | results section. | + +--------+ + + + | PTT | Routin | 11/13/2011 | | Results for this | | | e | 8:52 PM | | procedure are in the | | | | PDT | | results section. | + +--------+ + + + | PROTIME INR | Routin | 11/13/2011 | | Results for this | | | e | 8:52 PM | | procedure are in the | | | | PDT | | results section. | + +--------+ + + + | CBC WITH | Routin | 11/13/2011 | | Results for this | | DIFFERENTIAL | e | 8:51 PM | | procedure are in the | | | | PDT | | results section. | + +--------+ + + + | COMPREHENSIVE | Routin | 11/13/2011 | | Results for this | | METABOLIC PANEL | e | 8:51 PM | | procedure are in the | | | | PDT | | results section. | + +--------+ + + + | US RENAL LIMITED | | 11/13/2011 | | Results for this | | | | 6:24 PM | | procedure are in the | | | | PDT | | results section. | + +--------+ + + + | CT ABDOMEN PELVIS W | | 11/13/2011 | | Results for this | | CONTRAST | | 6:24 PM | | procedure are in the | | | | PDT | | results section. | + +--------+ + + + documented in this encounter Results Urinalysis, Reflex Microscopic and/or Culture (11/13/2011 8:54 PM PDT) + + + + + + | Component | Value | Ref Range | Performed | Pathologist | | | | | At | Signature | + + + + + + | COLLECTION | VOID | | [facility] | | | [facility] | | | [facility] | | | | | | MEDICAL | | | | | | CENTER - | | | | | | LABORATORY | | + + + + + + | Color, | YELLOW | | [facility] | | | Urine | | | [facility] | | | | | | MEDICAL | | | | | | CENTER - | | | | | | LABORATORY | | + + + + + + | Clarity, | HAZY | | [facility] | | | Urine | | | [facility] | | | | | | MEDICAL | | | | | | CENTER - | | | | | | LABORATORY | | + + + + + + | Glucose, | NEGATIVE | NEGATIVE mg/dL | [facility] | | | Urine | | | [facility] | | | | | | MEDICAL | | | | | | CENTER - | | | | | | LABORATORY | | + + + + + + | Bilirubin, | NEGATIVE | NEGATIVE | [facility] | | | Urine | | | [facility] | | | | | | MEDICAL | | | | | | CENTER - | | | | | | LABORATORY | | + + + + + + | Ketones, | NEGATIVE | NEGATIVE | [facility] | | | Urine | | | [facility] | | | | | | MEDICAL | | | | | | CENTER - | | | | | | LABORATORY | | + + + + + + | Specific | 1.015 | 1.001 - 1.030 | [facility] | | | [place], | | | [facility] | | | Urine | | | MEDICAL | | | | | | CENTER - | | | | | | LABORATORY | | + + + + + + | Blood, | LARGE | NEGATIVE | [facility] | | | Urine | | | [facility] | | | | | | MEDICAL | | | | | | CENTER - | | | | | | LABORATORY | | + + + + + + | pH, Urine | 6.0 | 5.0 - 8.0 | [facility] | | | | | | [facility] | | | | | | MEDICAL | | | | | | CENTER - | | | | | | LABORATORY | | + + + + + + | Protein, | 30 | NEGATIVE mg/dL | [facility] | | | Urine | | | [facility] | | | | | | MEDICAL | | | | | | CENTER - | | | | | | LABORATORY | | + + + + + + | Urobilinoge | NORMAL | NORMAL EU/dL | [facility] | | | n, Urine | | | [facility] | | | | | | MEDICAL | | | | | | CENTER - | | | | | | LABORATORY | | + + + + + + | Nitrite, | NEGATIVE | NEGATIVE | [facility] | | | Urine | | | [facility] | | | | | | MEDICAL | | | | | | CENTER - | | | | | | LABORATORY | | + + + + + + | Leukocyte | NEGATIVE | NEGATIVE | [facility] | | | Esterase, | | | [facility] | | | Urine | | | MEDICAL | | | | | | CENTER - | | | | | | LABORATORY | | + + + + + + | White Blood | NONE | 0 - 1 /hpf | [facility] | | | Cells, | | | [facility] | | | Urine | | | MEDICAL | | | | | | CENTER - | | | | | | LABORATORY | | + + + + + + | Red Blood | TNTC | 0 - 4 /hpf | [facility] | | | Cells, | | | [facility] | | | Urine | | | MEDICAL | | | | | | CENTER - | | | | | | LABORATORY | | + + + + + + | Squamous | NONE | FEW /hps | [facility] | | | Epithelial | | | [facility] | | | Cells, | | | MEDICAL | | | Urine | | | CENTER - | | | | | | LABORATORY | | + + + + + + | Bacteria, | NONE | NONE /hpf | [facility] | | | Urine | | | [facility] | | | | | | MEDICAL | | | | | | CENTER - | | | | | | LABORATORY | | + + + + + + | CRYSTAL UA | RAREComment: CaOx | /hpf | [facility] | | | | | | [facility] | | | | | | MEDICAL | | | | | | CENTER - | | | | | | LABORATORY | | + + + + + + | Culture | YESComment: REFLEXED TO | | [facility] | | | Indicated | URINE CULTURE. | | [facility] | | | [...] + | [facility] | [address] | [place], [place] | [phone] | | [facility] | | [address] | | | - LABORATORY | | | | + + + + + | [facility] | [address] | [place], [place] | | | [facility] | | [address], [facility] | | | - LABORATORY | | | | + + + + + Itzelime INR (11/13/2011 8:52 PM PDT) + + + + + + | Component | Value | Ref Range | Performed | Pathologist | | | | | At | Signature | + + + + + + | Prothrombin | 12.6 | 11.3 - 13.9 | [facility] | | | Time | | seconds | [facility] | | | | | | MEDICAL | | | | | | CENTER - | | | | | | LABORATORY | | + + + + + + | PATIENT | 12.9 | seconds | [facility] | | | NORMAL MEAN | | | [facility] | | | | | | MEDICAL | | | | | | CENTER - | | | | | | LABORATORY | | + + + + + + | INR | 1.0Comment: INR: USUAL | 0.9 - 1.1 | [facility] | | | | ORAL ANTICOAGULATION | | [facility] | | | | RANGE | | MEDICAL | | | | 2.0-3.0 | | CENTER - | | | | HIGH LEVEL ORAL | | LABORATORY | | | | ANTICOAGULATION RANGE | | | | | | 2.5-3.5 | | | | + + + + + + + + | Specimen | + + | | + + + + + + + | Performing | Address | City/State/Zipcode | Phone Number | | Organization | | | | + + + + + | [facility] | [address] | [place], [place] | [phone] | | [facility] | | [address] | | | - LABORATORY | | | | + + + + + | [facility] | [address] | [place], [place] | | | [facility] | | [address], [facility] | | | - LABORATORY | | | | + + + + + PTT (11/13/2011 8:52 PM PDT) + + + + + + | Component | Value | Ref Range | Performed | Pathologist | | | | | At | Signature | + + + + + + | aPTT | 29.2Comment: Normal | 22.1 - 36.0 | [facility] | | | | Patient Mean Value: 29.0 | seconds | [facility] | | | | seconds | | MEDICAL | | | | [...] + | [facility] | [address] | [place], [place] | [phone] | | [facility] | | [address] | | | - LABORATORY | | | | + + + + + | [facility] | [address] | [place], [place] | | | [facility] | | [address] [place] [address] | | | - LABORATORY | | | | + + + + + Comprehensive Metabolic Panel (11/13/2011 8:51 PM PDT) + + + + + + | Component | Value | Ref Range | Performed | Pathologist | | | | | At | Signature | + + + + + + | Glucose | 97 | 70 - 109 mg/dL | [facility] [...] + + + + | Alkaline | 63 | 40 - 110 IU/L | [facility] | | | Phosphatase | | | [facility] | | | | | | MEDICAL | | | | | | CENTER - | | | | | | LABORATORY | | + + + + + + | AST | 17 | 10 - 42 IU/L | [facility] | | | | | | [facility] | | | | | | MEDICAL | | | | | | CENTER - | | | | | | LABORATORY | | + + + + + + | ALT | 16 | 6 - 45 IU/L | [facility] | | | | | | [facility] | | | | | | MEDICAL | | | | | | CENTER - | | | | | | LABORATORY | | + + + + + + | Bilirubin | 1.6 (H) | 0.2 - 1.0 mg/dL | [facility] | | | Total | | | [facility] | | | | | | MEDICAL | | | | | | CENTER - | | | | | | LABORATORY | | + + + + + + | Total | 6.4 | 6.0 - 7.8 gm/dL | [facility] | | | Protein | | | [facility] | | | | | | MEDICAL | | | | | | CENTER - | | | | | | LABORATORY | | + + + + + + | Albumin | 4.5 | 3.2 - 5.0 gm/dL | [facility] | | | | | | [facility] | | | | | | MEDICAL | | | | | | CENTER - | | | | | | LABORATORY | | + + + + + + | BUN | 9 | 7 - 18 mg/dL | [facility] | | | | | | [facility] | | | | | | MEDICAL | | | | | | CENTER - | | | | | | LABORATORY | | + + + + + + | Creatinine | 0.97 | 0.60 - 1.30 | [facility] | | | | | mg/dL | [facility] | | | | | | MEDICAL | | | | | | CENTER - | | | | | | LABORATORY | | + + + + + + | Estimated | >60Comment: For | >60 mL/min/A | [facility] | | | GFR | -Americans, | | [facility] | | | | please multiply the | | MEDICAL | | | | result by 1.210 | | CENTER - | | | | This is an estimated | | LABORATORY | | | | GFR and is based on a | | | | | | standard adult | | | | | | body mass (A=1.73m2) and | | | | | | serum creatinine | | | | + + + + + + | BUN/Creatin | 9.3 (L) | 12 - 20 | [facility] | | | ine Ratio | | | [facility] | | | | | | MEDICAL | | | | | | CENTER - | | | | | | LABORATORY | | + + + + + + | Na | 138 | 136 - 149 mEq/L | [facility] | | | | | | [facility] | | | | | | MEDICAL | | | | | | CENTER - | | | | | | LABORATORY | | + + + + + + | K | 3.7 | 3.5 - 5.1 mEq/l | [facility] | | | | | | [facility] | | | | | | MEDICAL | | | | | | CENTER - | | | | | | LABORATORY | | + + + + + + | Cl | 102 | 98 - 109 mEq/l | [facility] | | | | | | [facility] | | | | | | MEDICAL | | | | | | CENTER - | | | | | | LABORATORY | | + + + + + + | CO2 | 29 | 24 - 31 mEq/L | [facility] | | | | | | [facility] | | | | | | MEDICAL | | | | | | CENTER - | | | | | | LABORATORY | | + + + + + + | Anion Gap | 10.7 | 6.0 - 17.0 | [facility] | | | | | | [facility] | | | | | | MEDICAL | | | | | | CENTER - | | | | | | LABORATORY | | + + + + + + + + | Specimen | + + | | + + + + + + + | Performing | Address | City/[facility]/Zipcode | Phone Number | | Organization | | | | + + + + + | [facility] | [address] | [place], [place] | [phone] | | [facility] | | [address] | | | - LABORATORY | | | | + + + + + | [facility] | [address] | [place], [place] | | | [facility] | | [address], [facility] | | | - LABORATORY | | | | + + + + + CBC with Differential (11/13/2011 8:51 PM PDT) + +-------+ + + + | Component | Value | Ref Range | Performed | Pathologist | | | | | At | Signature | + +-------+ + + + | White Blood | 8.7 | 4.0 - 11.0 K/uL | [facility] | | | Cells | | | [facility] | | | | | | MEDICAL | | | | | | CENTER - | | | | | | LABORATORY | | + +-------+ + + + | Red Blood | 4.52 | 4.30 - 5.70 | [facility] | | | Cells | | M/uL | [facility] | | | | | | MEDICAL | | | | | | CENTER - | | | | | | LABORATORY | | + +-------+ + + + | Hemoglobin | 14.0 | 13.5 - 18.0 | [facility] | | | | | gm/dL | [facility] | | | | | | MEDICAL | | | | | | CENTER - | | | | | | LABORATORY | | + +-------+ + + + | Hematocrit | 40.9 | 40.0 - 51.0 % | [facility] | | | | | | [facility] | | | | | | MEDICAL | | | | | | CENTER - | | | | | | LABORATORY | | + +-------+ + + + | MCV | 90.4 | 83.0 - 101.0 fL | [facility] [...] +-------+ + + + | MCHC | 34.1 | 32.0 - 36.0 | [facility] | | | | | g/dL | [facility] | | | | | | MEDICAL | | | | | | CENTER - | | | | | | LABORATORY | | + +-------+ + + + | RDW-CV | 13.2 | <15.0 % | [facility] | | | | | | [facility] | | | | | | MEDICAL | | | | | | CENTER - | | | | | | LABORATORY | | + +-------+ + + + | Platelet | 239 | 140 - 440 K/uL | [facility] | | | Count | | | [facility] | | | | | | MEDICAL | | | | | | CENTER - | | | | | | LABORATORY | | + +-------+ + + + | % | 57.6 | 45 - 75 % | [facility] | | | Neutrophils | | | [facility] | | | | | | MEDICAL | | | | | | CENTER - | | | | | | LABORATORY | | + +-------+ + + + | % | 32.5 | 20 - 45 % | [facility] | | | Lymphocytes | | | [facility] | | | | | | MEDICAL | | | | | | CENTER - | | | | | | LABORATORY | | + +-------+ + + + | % Monocytes | 9.0 | 4 - 12 % | [facility] | | | | | | [facility] | | | | | | MEDICAL | | | | | | CENTER - | | | | | | LABORATORY | | + +-------+ + + + | % | 0.4 | 0 - 5 % | [facility] | | | Eosinophils | | | [facility] | | | | | | MEDICAL | | | | | | CENTER - | | | | | | LABORATORY | | + +-------+ + + + | % Basophils | 0.5 | 0 - 1 % | [facility] | | | | | | [facility] | | | | | | MEDICAL | | | | | | CENTER - | | | | | | LABORATORY | | + +-------+ + + + | Absolute | 5.0 | 1.5 - 6.6 K/uL | [facility] | | | Neutrophils | | | [facility] | | | | | | MEDICAL | | | | | | CENTER - | | | | | | LABORATORY | | + +-------+ + + + | Absolute | 2.8 | 0.6 - 3.2 K/uL | [facility] | | | Lymphocytes | | | [facility] | | | | | | MEDICAL | | | | | | CENTER - | | | | | | LABORATORY | | + +-------+ + + + | Absolute | 0.8 | 0.0 - 1.0 K/uL | [facility] | | | Monocytes | | | [facility] | | | | | | MEDICAL | | | | | | CENTER - | | | | | | LABORATORY | | + +-------+ + + + | Absolute | 0.0 | 0.0 - 0.4 K/uL | [facility] | | | Eosinophils | | | [facility] | | | | | | MEDICAL | | | | | | CENTER - | | | | | | LABORATORY | | + +-------+ + + + | Absolute | 0.0 | 0.0 - 0.1 K/uL | [facility] | | | Basophils | | | [facility] | | [...] + | [facility] | [address] | [place], [place] | [phone] | | [facility] | | [address] | | | - LABORATORY | | | | + + + + + | [facility] | [address] | [place], [place] | | | [facility] | | [facility], [facility] | | | - LABORATORY | | | | + + + + + US Renal Limited (11/13/2011 6:24 PM PDT) + + | Specimen | + + | | + + + + + | Narrative | Performed At | + + + | [facility] Diagnostic Imaging Department | [facility] | | [address] [facility] | [facility] | | RENAL ULTRASOUND: 11/13/2011 | DIAG IMG | | CLINICAL HISTORY: BLOOD IN URINE. FINDINGS: The kidneys | | | are symmetric in size, contour and echogenicity. No hydronephrosis | | | of either kidney. No visible shadowing foci to suggest | | | nephrolithiasis. The right kidney measures 11.2 and the left 11.4 | | | cm longitudinally. The bladder on prevoid images is | | | unremarkable. There is no significant postvoid residual. | | | Resistive indices bilaterally are normal measuring 0.5 to 0.6. | | | Bilateral ureteral jets are identified. IMPRESSION: NEGATIVE RENAL | | | ULTRASOUND. COMMENT: PRELIMINARY REPORT WAS PROVIDED TO THE | | | EMERGENCY ROOM PROVIDER IMMEDIATELY FOLLOWING THE EXA MINATION. | | | THE PATIENT SUBSEQUENTLY HAD A CT EXAMINATION. PLEASE REFER TO | | | THAT FOR ADDITIONAL DETAILS. Dictated Date/Time: 11/14/2011 | | | 08:59 Transcribed Date/Time: 11/14/2011 09:25 Property Field Adjuster: | | | <Electronically Signed by Adilson Yi MD> 11/14/11 1158 | | + + + + + | Procedure Note | + + | Dann Harris Conversion - 09/03/2013 11:08 AM [facility] | | Diagnostic Imaging Department [address] [place] [address] | | RENAL ULTRASOUND: 11/13/2011 CLINICAL HISTORY: BLOOD | | IN URINE. FINDINGS: The kidneys are symmetric in size, contour and echogenicity. No | | hydronephrosis of either kidney. No visible shadowing foci to suggest nephrolithiasis. | | The right kidney measures 11.2 and the left 11.4 cm longitudinally. The bladder on | | prevoid images is unremarkable. There is no significant postvoid residual. Resistive | | indices bilaterally are normal measuring 0.5 to 0.6. Bilateral ureteral jets are | | identified. IMPRESSION: NEGATIVE RENAL ULTRASOUND. COMMENT: PRELIMINARY REPORT WAS | | PROVIDED TO THE EMERGENCY ROOM PROVIDER IMMEDIATELY FOLLOWING THE EXAMINATION. THE | | PATIENT SUBSEQUENTLY HAD A CT EXAMINATION. PLEASE REFER TO THAT FOR ADDITIONAL DETAILS. | | Dictated Date/Time: 11/14/2011 08:59Transcribed Date/Time: 11/14/2011 | | 09:25Transcriptionist: <Electronically Signed by Adilson Yi MD> 11/14/11 | | 1158 | | | |The bladder on prevoid images is unremarkable. There is no significant postvoid residual. | | | |Resistive indices bilaterally are normal measuring 0.5 to 0.6. | | | |Bilateral ureteral jets are identified. | | | |IMPRESSION: NEGATIVE RENAL ULTRASOUND. | | | |COMMENT: PRELIMINARY REPORT WAS PROVIDED TO THE EMERGENCY ROOM PROVIDER IMMEDIATELY FOLLOWI NG THE EXA | |MINATION. | | | |THE PATIENT SUBSEQUENTLY HAD A CT EXAMINATION. PLEASE REFER TO THAT FOR ADDITIONAL DETAILS . | | | |Dictated Date/Time: 11/14/2011 08:59 | |Transcribed Date/Time: 11/14/2011 09:25 | |Property Field Adjuster: | |<Electronically Signed by Adilson Yi MD> 11/14/11 1158 | + + + +---------+ + + | Performing | Address | City/State/Zipcode | Phone Number | | Organization | | | | + +---------+ + + | [place] | | | | | [facility] | | | | + +---------+ + + CT Abdomen Pelvis w Contrast (11/13/2011 6:24 PM PDT) + + | Specimen | + + | | + + + + + | Narrative | Performed At | + + + | [facility] | [facility] | | [address], [facility] | [facility] | | ENHANCED CT ABDOMEN AND PELVIS | DIAG IMG | | 11/13/2011, 2205 HOURS CLINICAL HISTORY: ABDOMINAL PAIN AND | | | HEMATURIA. COMPARISON: Renal ultrasound from earlier the same | | | day. TECHNIQUE: Axial images are performed through the abdomen | | | and pelvis following the uneventful intravenous administration of | | | 100 mL Isovue 370 contrast. Coronal and sagittal reformations are | | | also performed. ABDOMEN FINDINGS: Imaged lung bases and | | | mediastinum are unremarkable. The liver, spleen, pancreas, and | | | adrenal glands are unremarkable. The gallbladder is surgically | | | absent. A solitary surgical clip is positioned along the posterior , | | | inferior aspect of the right hepatic lobe. There is a 6 mm calculus | | | at the right ureteropelvic junction, without associated intrarenal | | | collecting system dilation. Several tiny rounded hypodensities in | | | the right kidney favor cysts. There is no visible ureteral | | | calculus or hydroureter. The left kidney is unremarkable, without | | | visible calculi or hydroureteronephrosis. The bowel and appendix | | | are unremarkable. No free air, free fluid, pathologic lymph node | | | enlargement, or hernia is evident. A solitary surgical clip is noted | | | in the infraumbilical region. There are multiple prominent | | | Schmorl's nodes within the upper to mid lumbar and imaged lower | | | thoracic spine. Vertebral osteophytes at the L2-3 level appear to | | | mild to moderately narrow the bony central canal and asymmetrically | | | narrow the right neural foramen. Bones and soft tissues are | | | otherwise unremarkable. PELVIS FINDINGS: There are coarse | | | calcifications within the prostate. Bladder is mostly decompressed | | | and not well evaluated. Seminal vesicles are grossly symmetric. | | | No free air, free fluid, pathologic lymph node enlargement, or | | | hernia is evident. Surgical clips are positioned within the scrotum, | | | likely reflecting previous vasectomy. Tiny sclerotic foci in the | | | bony pelvis and proximal femora favor bone islands. IMPRESSION: | | | 1. 6 MM CALCULUS AT THE RIGHT URETEROPELVIC JUNCTION, WITHOUT | | | ASSOCIATED HYDRONEPHROSIS. TINY, ROUNDED HYPODENSITIES IN THE RIGHT | | | KIDNEY FAVOR CYSTS. 2. NORMAL APPENDIX. 3. 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 COMMENT: PRELIMINARY | | | RESULTS OF THIS STUDY WERE COMMUNICATED TO THE ER STAFF BY THE | | | NIGHT [facility] RADIOLOGIST ON 11/13/2011, AT 2237 HOURS. Dictated | | | Date/Time: 11/14/2011 09:13 Transcribed Date/Time: 11/14/2011 | | | 09:24 Property Field Adjuster: <Electronically Signed by Kirk Yates | | | MD Chandrakant> 11/14/11 2240 | | + + + + + | Procedure Note | + + | Dann Harris Conversion - 09/03/2013 11:08 AM [facility] | | Diagnostic Imaging Department | | [address] [facility], [facility] | | | | | | | | ENHANCED CT ABDOMEN AND PELVIS 11/13/2011, 2205 HOURS | | | | CLINICAL HISTORY: ABDOMINAL PAIN AND HEMATURIA. | | | | COMPARISON: Renal ultrasound from earlier the same day. | | | | TECHNIQUE: Axial images are performed through the abdomen and pelvis following | | the uneventful intravenous administration of 100 mL Isovue 370 contrast. | | Coronal and sagittal reformations are also performed. | | | | ABDOMEN FINDINGS: Imaged lung bases and mediastinum are unremarkable. The | | liver, spleen, pancreas, and adrenal glands are unremarkable. The gallbladder | | is surgically absent. A solitary surgical clip is positioned along the posterior | | , inferior aspect of the right hepatic lobe. There is a 6 mm calculus at the | | right ureteropelvic junction, without associated intrarenal collecting system | | dilation. Several tiny rounded hypodensities in the right kidney favor cysts. | | There is no visible ureteral calculus or hydroureter. The left kidney is | | unremarkable, without visible calculi or hydroureteronephrosis. The bowel and | | appendix are unremarkable. No free air, free fluid, pathologic lymph node | | enlargement, or hernia is evident. A solitary surgical clip is noted in the | | infraumbilical region. There are multiple prominent Schmorl's nodes within the | | upper to mid lumbar and imaged lower thoracic spine. Vertebral osteophytes at | | the L2-3 level appear to mild to moderately narrow the bony central canal and | | asymmetrically narrow the right neural foramen. Bones and soft tissues are | | otherwise unremarkable. | | | | PELVIS FINDINGS: There are coarse calcifications within the prostate. Bladder | | is mostly decompressed and not well evaluated. Seminal vesicles are grossly | | symmetric. No free air, free fluid, pathologic lymph node enlargement, or | | hernia is evident. Surgical clips are positioned within the scrotum, likely | | reflecting previous vasectomy. Tiny sclerotic foci in the bony pelvis and | | proximal femora favor bone islands. | | | | IMPRESSION: | | 1. 6 MM CALCULUS AT THE RIGHT URETEROPELVIC JUNCTION, WITHOUT ASSOCIATED | | HYDRONEPHROSIS. TINY, ROUNDED HYPODENSITIES IN THE RIGHT KIDNEY FAVOR CYSTS. | | | | 2. NORMAL APPENDIX. | | | | 3. THORACOLUMBAR SPONDYLOSIS AND PROMINENT SCHMORL'S NODE FORMATION, WITH MILD | | TO MODERATE BONY CENTRAL CANAL STENOSIS AND ASYMMETRIC RIGHT NEURAL FORAMINAL | | STENOSIS AT L2-3. | | | | COMMENT: PRELIMINARY RESULTS OF THIS STUDY WERE COMMUNICATED TO THE ER STAFF BY | | THE [facility] RADIOLOGIST ON 11/13/2011, AT 2237 HOURS. | | | | Dictated Date/Time: 11/14/2011 09:13 | | Transcribed Date/Time: 11/14/2011 09:24 | | Property Field Adjuster: | | <Electronically Signed by Kirk Stallings MD> 11/14/11 2240 | + + + +---------+ + + | Performing | Address | City/State/Zipcode | Phone Number | | Organization | | | | + +---------+ + + | [place] | | | | | [facility] | | | | + +---------+ + + documented in this encounter Visit Diagnoses Not on filedocumented in this encounter"
--- OUTSIDE RECORDS SUMMARY | ~2020-03-08 | XMS | Encounter Summary ---
Demographics + + + | Address | [address] | | | [place] [address] | + + + | Home Phone [...] + + + | Author | [facility] | | | and [place] | + + + | Organization | [facility] | | [...] Team Providers + +------+ + | Care Home Economist Name | Role | Phone | + +------+ + PCP | Unavailable | + +------+ + Encounter Details +--------+ + + + + | Date | Type | Department | Care Team | Description | +--------+ + + + + | 03/11/ | Hospital | [facility] | | | | 2007 | Encounter | MED CTR XRAY [address] | | | | | | [address] | | | | | | [place] [address] | | | | | | [phone] | | | +--------+ + + + [...]
--- OUTSIDE RECORDS SUMMARY | ~2020-03-08 | XMS | Encounter Summary ---
Demographics + + + | Address | [address] | | | [place] [address] | + + + | Home Phone [...] Author + + + | Author | [facility] | | | and [place] | + + + | Organization | [facility] | | | and [...] Providers + +------+ + | Care Stationary Engineer Name | Role | Phone | + [...] + + | 04/10/ | Office | [facility] | Theresa Peña | Acute maxillary | | 2015 | Visit | CARE [address] | DO Concetta Cuellar | sinusitis, | | | | [place] | [place], [place] | recurrence not | | | | [address] | [address] | specified (Primary | | | | [phone] | | Dx) | +--------+---------+ + + [...] and Flonase nasal spray sent to pharmacy customer support executive some Afrin or Clinton-Synephrine and use 2 [...]
--- OUTSIDE RECORDS SUMMARY | ~2020-03-08 | XMS | Encounter Summary ---
Demographics + + + | Address | [address] | | | [place] [address] | + + + | Home Phone [...] Author + + + | Author | [facility] | | | and [place] | + + + | Organization | [facility] | | [...] Team Providers + +------+ + | Care Station Cleaning Porter Name | Role | Phone | + +------+ + PCP | Unavailable | + +------+ + Encounter Details +--------+ + + + + | Date | Type | Department | Care Team | Description | +--------+ + + + + | 10/03/ | Hospital | [facility] | | | | 2006 | Encounter | MED CTR XRAY [address] | | | | | | [address] | | | | | | [place] [address] | | | | | | [phone] | | | +--------+ + + + [...]
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
--- OUTSIDE RECORDS SUMMARY | ~2020-03-08 | XMS | Encounter Summary ---
Demographics + + + | Address | [address] | | | [place] [address] | + + + | Home Phone [...] Author + + + | Author | [facility] | | | and [place] | + + + | Organization | [facility] | | | [...] Team Providers + +------+ + | Care Bottling Supervisor Name | Role | Phone | + +------+ + | No, Physician | PCP | Unavailable | + +------+ + Reason for Visit + + + | Reason | Comments | + + + | Extremity Weakness | known issue with cervical spine from MRI done at [facility]. | | | Sent here by ED doctor at [facility] to see Dr. Smalls. | + + + | Numbness | bilateral arms | + + + Encounter Details +--------+ + + + + | Date | Type | Department | Care Team | Description | +--------+ + + + + | 12/23/ | Emergency | [facility] | Christy Benitez, | Herniation of | | 2019 - | | MEDICAL CENTER | DO [address] | intervertebral disc | | | | EMERGENCY CENTER | [place] [address] | of high cervical | | 12/24/ | | [address] | [phone] | region (Primary Dx); | | 2019 | | [place], [place] | | Bilateral arm | | | | [address] | | weakness | | | | [phone] | | | +--------+ + + + [...] documented as of this encounter ED Notes aCsandra Gaviria RN - 12/25/2019 8:44 AM PD[facility]eport to [facility]. Casandra Manzanares RN - 12/25/2019 7:39 [...] PDTAMR called carmita ruiz ACLS transfer to [facility].Electronically signed by Lisa Garcesologist at 020 7:48 PM Andre Lester RN - 12/24/2019 5:08 PM PDTRN requestioned pt about timel ine and who sent pt to see Dr. Patton. Pt states has been to [place] ED 3 times this week alone for same problem. States ER provider there told him he has already sent referrals to [facility] and [facility] for neurosurgery. Pt states has called both offices but was told the y couldn't schedule an appointment until they see a referral and have insurance approval. P t states he has talked with his insurance who has told him he can get an appointment with ne urosurgery. Pt states went to [facility] Neurosurgery office today with disk and paperwork and office workers told him they couldn't accept the disk without prior authorization. Pt s tates he then drove to ER at [facility] so he could be seen by Dr. Smalls. Electronically rob d by Andre Rodriguez RN at 12/24/2019 5:18 PM PDTAndre Rodriguez RN - 12/24/2019 4:40 P M PDTPt states had MRI yesterday in [place] ER and was told to come to [facility] for emergent surgery with Dr. Patton. Pt states has hx of cervical fusions x2 done in [facility]. Pt s tates having worsening weakness in bilateral upper arm with numbness. hristy Benitez DO - 12/24/2019 4:26 PM PDT [facility] Department of Emergency Medicine 12/24/2019 4:26 PM PDT No flowsheet data found. History of Present Illness Patient Identification Cecilio Browne is a 49 y.o. male. Patient information was obtained from patient History/Exam limitations: none. Patient presented to the Emergency Department by: Car Chief Complaint Chief Complaint Patient presents with Extremity Weakness known issue with cervical spine from MRI done at [facility]. Sent here by ED doctor at [facility] to see Dr. Smalls. Numbness bilateral arms [...] neck pain. He was sent here by [facility] Dr. Adams to see the neurosurgeon after MRI [...] retired but used to work out of [place]. The patient reports movement worsens symptoms, and [...] file Gets together: Not on file Attends christianity service: Not on file Active member of [...] CV/Resp: Negative for chest pain Negative for [id number]-elnykv Negative for cough GI: Negative for abdominal [...] upper chest. 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 Patton states that he is aware of the patient but he communicated to the clinician s in [place] that the patient should be sent to [facility] on the outpatient basis for bonilla rgical consults. 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 1715 Dr. Adams states the pt doesn't have [...] in the on the outpatient basis in [place] or in his clinic here in [facility]. 1801 Jayant from [facility] calling me back. He should have a orthopedic spi nal surgeon on the phone for me shortly. 1853 Dr. Aparicio accepts pt in [facility] to [facility]. He states that, given the MRI report a nd the arm weakness (although mild ) pt needs surgery within the next day or two. He would like us to place the pt in a C-collar and keep him on bed rest. He will have us send the pt to the ED at [facility] and they will see the pt [...] neurologic exam at this time however. Called [facility] to update them that the patient may not be there til tomorrow afternoon g ivolimpia issues with no available ground transport until 830 am tomorrow morning. Jayant states he will update the neurosurgeon himself.l 2008 Pt has medicaid per Alfreda SEE, states that she cannot gaurantee it but [...] available (Using the electronic record system of [facility], with regard to the past medical/surgical history, previous medications, and all ergies). Laboratory Evaluation Results Procedure Component Value Ref Range Date/Time Coronavirus (COVID-19) NAAT [[id number]] Collected: 12/24/19 190 Order Status: Completed Specimen: Tissue from Nasopharynx Updated: 12/24/19 2018 SARS-CoV-2, MERCEDES (COVID-19) NEGATIVE NEG Sedimentation Rate [[id number]] Collected: 12/24/191702 Order Status: Completed Specimen: Blood Updated: 12/24/19 1845 ESR <1 0 - 20 mm/Hr C-Reactive Protein [[id number]] Collected: 12/24/191702 Order Status: Completed Specimen: Blood Updated: 12/24/191738 CRP <0.4 <0.5 mg/dL Comprehensive Metabolic Panel [[id number]] (Abnormal) Collected: 12/24/191702 Order Status: Completed Specimen: Blood Updated: 06/25/20 1739 Na 142 135 - 145 mmol/L K [...] GFR >60 >60 mL/min/1.73m2 CBC with Differential [[id number]] Collected: 12/24/19 1703 Order Status: Completed Specimen: [...] 16:59:06) Impression: Negative chest. Signed by: Amanda Cosme, Linda Sign Date/Time: 12/24/2019 4:59 PM Narrative: CHEST [...] Disposition Condition Comment Transfer to Another Facility [facility] This chart has in part been created using 3Leaf Speech Recognition software. The c monroe has [...] L?MRN: | | | | | | [id number] | | | [id number] | | | riteri | | | [...] | | | St. | | | [place] | | | y | | | [...] | | | St. | | | [place] | | | y | | | [...] | | | St. | | | [place] | | | y H. | | [...] | | | St. | | | [place] | | | y H. | | [...] | | | St. | | | [place] | | | y H. | | [...] | | | St. | | | [place] | | | y H. | | [...] | | | St. | | | [place] | | | y H. | | [...] | | | TS | | | Assembly Leader | | | al | | | [...] | | | | | performed at [facility] | | | | | | [facility] [place], [place] | | | | | | [address] | | | | + + + + + + + + | Specimen | + + | Tissue - Entire | | nasopharynx (body | | structure) | + + + + + + + | Performing | Address | City/State/Zipcode | Phone Number | | Organization | | | | + + + + + | [facility] | [address] | [place] [address] | [phone] | + + + + + Sedimentation Rate (12/24/2019 5:03 PM PDT) + + + + + + | Component | Value | Ref Range | Performed | Pathologist | | | | | At | Signature | + + + + + + | ESR | <1Comment: Testing | 0 - 20 mm/Hr | [place] | | | | performed at [facility];[address] | | LABORAT[address] | | | | [address];[place] | | | | | | [address] | | | | + + + + + + + + | Specimen | + + | Blood | + + + + + + + | Performing | Address | City/State/Zipcode | Phone Number | | Organization | | | | + + + + + | [facility] | [address] | [place] [address] | [phone] | + + + + + C-Reactive Protein (12/24/2019 5:03 PM PDT) + + + + + + | Component | Value | Ref Range | Performed | Pathologist | | | | | At | Signature | + + + + + + | CRP | <0.4Comment: Testing | <0.5 mg/dL | [facility] | | | | performed at [facility];[address] | | LABORAT[address] | | | | [address];[place] | | | | | | [address] | | | | + + + + + + + + | Specimen | + + | Blood | + + + + + + + | Performing | Address | City/State/Zipcode | Phone Number | | Organization | | | | + + + + + | [facility] | [address] | [place] [address] | [phone] | + + + + + Comprehensive [...] | >60Comment: GFR <60: | >60 | KR | | | GFR | CHRONIC KIDNEY [...] | | | | | performed at [facility];[address] | | | | | | [facility] [place], [place] | | | | | | [address] | | | | + + + + + + + + | Specimen | + + | Blood | + + + + + + + | Performing | Address | City/State/Zipcode | Phone Number | | Organization | | | | + + + + + | [facility] | [address] | [place] [address] | [phone] | + + + + + CBC [...] | | | Absolute | performed at [facility];[address] | [address] | LABORATORY | | | | [address];[place], [place] | | | | | | [address] | | | | + + + + + + + + | Specimen | + + | Blood | + + + + + + + | Performing | Address | City/State/Zipcode | Phone Number | | Organization | | | | + + + + + | [facility] | [address] | [place] [address] | [phone] | + + + + + XR [...] | | | | | ONLY, -COMPUTER (264), | | | | | | news videotape editor BRIAN KIMBALL | | | | [...]
--- NOTE | 2020-03-08 20:22 | EKG ---
[facility] [address] [facility] [place], [place] [address] Signed Sinus bradycardia Otherwise normal ECG No previous ECGs available Confirmed by RENNY TREVIÑO MD ([id number]) on 03/08/2020 8:22:19 PM Electronically Signed By: RENNY TREVIÑO MD 03/08/202021 PATIENT NAME: CECILIO CROSS Electrocardiogram DATE OF : 68 PHYSICIAN: RENNY TREVIÑO MD REPORT #: [id number] REPORT IS CONFIDENTIAL AND NOT TO BE RELEASED WITHOUT AUTHORIZATION
--- NOTE | 2020-03-09 22:07 | PATH ---
[facility] [address] [facility] [place], [place] [address] Signed ORDERING PHYSICIAN: Adis Adams MD PATIENT NAME: CECILIO CROSS GENDER: Severo : 1970 SPECIMEN(S): No Source Given MOLECULAR PATHOLOGY RESULTS: SARS-CoV-2 Not Detected ADDITIONAL NOTES.: The [place] Fusion SARS-CoV-2 Assay is a multiplex real-time PCR (RT-PCR) in vitro diagnostic test intended for the qualitative detection of RNA from SARS-CoV-2 from individuals who meet COVID-19 clinical and/or epidemiological criteria. In general, SARS-CoV-2 RNA can be detected during the acute phase of infection. Positive results indicate the presence of SARS-CoV-2 RNA. Clinical correlation with patient history and other diagnostic information is necessary to determine patient infection status. Positive results do not rule out bacterial infection or co-infection with other viruses. Negative results do not preclude SARS-CoV-2 infection and should not be used as the sole basis for patient management decisions. Negative results must be combined with other clinical observations, patient history, and epidemiological information. The [place] Fusion SARS-CoV-2 Assay is not yet approved or cleared by the [place] FDA. When there are no FDA-approved or cleared tests available, and other criteria are met, FDA can make tests available under an emergency access mechanism called an Emergency Use Authorization (EUA). The EUA for this test is supported by the Electric Motor Tester Assembler of Health and Human Service's (HHS's) declaration that circumstances exist to justify the emergency use of in vitro diagnostics for the detection and/or diagnosis of the virus that causes COVID-19. This EUA will remain in effect for the duration of the COVID-19 declaration justifying emergency of IVDs, unless it is terminated or revoked by FDA, after which the test may no longer be used. The [place] Fusion SARS-CoV-2 Assay is for use only under EUA in US laboratories certified under the Clinical Laboratory Improvement Amendments of 1988 (CLIA) to perform high complexity tests. [employer] is certified under CLIA to perform high complexity PATIENT NAME: CECILIO CROSS PATHOLOGY DATE OF : [birth year] REPORT #: [id number] PHYSICIAN: STEPHANIE PATHOLOGY PCP: STEFFEN BENSON MD REPORT IS CONFIDENTIAL AND NOT TO BE RELEASED WITHOUT AUTHORIZATION [address] [address] Signed clinical laboratory testing. PERFORMING LABORATORY.: Molecular testing was performed by [facility] [address] [place], [place] [address] [address] (Volunteer Manager: Donte Ramirez D.O.; CLIA#: [id number]) Diagnostician: System Interface Pathologist Electronically Signed 03/09/2020 Copies: ~ PATIENT NAME: CECILIO CROSS PATHOLOGY DATE OF : [birth year] REPORT #: [id number] PHYSICIAN: STEPHANIE FOFANA PCP: STEFFEN BENSON MD REPORT IS CONFIDENTIAL AND NOT TO BE RELEASED WITHOUT AUTHORIZATION
== END 2020-03-08 16:47 | disposition home or self-care (01) ==
LOC: ED 12:41
DX: R61 Generalized hyperhidrosis (principal); R07.9 Chest pain, unspecified; I10 Essential (primary) hypertension; F17.200 Nicotine dependence, unspecified, uncomplicated; Z88.8 Allergy status to other drugs, medicaments and biological substances; Z79.899 Other long term (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 therapy
CPT/HCPCS: 71046; 80053; 83605; 83735; 84484; 85025; 85651; 86140; 93005; 93010; 99285-25; C9803

== ENCOUNTER 2020-09-16 08:00 | Day surgery (SDC) | payer OTHER ==
[~2020-09-16] VITALS: Ht 177.8 cm; Wt 101.0 kg
[~2020-09-16 08:00] MED LIST changes: +TOPROL XL25 MG PO
--- NOTE | 2020-09-16 10:15 | NUR ---
09/16/20 1015 Miracle Malik 1011 PATIENT ARRIVES TO PACU UNRESPONSIVE TO PAIN. ORAL AIRWAY IN PLACED. RESP EVEN AND UNLABORED, MASK AT 8 LITERS.
[2020-09-16] MEDS ORDERED: HYDROCODON-ACE1 EAC8 PO (11:46)
--- NOTE | 2020-09-16 12:17 | OR ---
[facility] [address], [place] [address] Signed DATE OF OPERATION: 09/16/2020 SURGEON: Brian Fleming MD PREOPERATIVE DIAGNOSIS: Midline subcutaneous occipital mass (4-5 cm). POSTOPERATIVE DIAGNOSIS: Midline subcutaneous occipital mass (4-5 cm). PROCEDURE: Excision of midline subcutaneous occipital mass. ESTIMATED BLOOD LOSS: None. INDICATIONS: Marie is a 50-year-old gentleman, asked to see me for a subcutaneous mass over the occipital region. It is right over the nuchal prominence. He said it has been increasing in size over last 8-10 years. It is causing headaches and pain with movement. He has had at least three neck surgeries and he has a vertical incision of the back of his neck. Right at the top of the incision is this mass. He said the occipital bone and the scar is pushing this mass and is causing him quite a bit of pain. He wanted to have it removed. I had met with Marie in the office. I explained him this is too large and too deep to remove in the office. We would have to do in the operating room under anesthesia with good lighting and good retraction. He understands the nature of the surgery including the risk. There are risks including, but not limited to bleeding, infection, scarring, change in contour of the skin as well as recurrent subcutaneous lesions in the same or other locations. He had expressed understanding and wished to proceed. DESCRIPTION OF PROCEDURE: I met with Marie in our preop area and we both easily identify this rather large subcutaneous mass. We marked that appropriately. After this, Marie was taken to the operating room and placed in the left lateral position with appropriate padding and monitoring under general LMA anesthesia. He was given preoperative antibiotics along with subcutaneous heparin. SCDs were utilized. He was then prepped and draped in the usual sterile fashion. We simply extended the scar from his neck up over the occipital ridge. We dissected out the lesion circumferentially with the help of the cautery. 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 As is always the case in these locations, it was Electronically Signed By: BRIAN FLEMING MD 09/16/20 1217 PATIENT NAME: MARIE CROSS OPERATIVE REPORT DATE OF : 68 REPORT #: [id number] PHYSICIAN: BRIAN FLEMING MD PCP: STEFFEN BENSON MD REPORT IS CONFIDENTIAL AND NOT TO BE RELEASED WITHOUT AUTHORIZATION [facility] [address] [place], [place] [address] Signed unbelievably adherent to the surrounding tissues. In the end, it was every bit a 4 cm long by 2.5 or 3 cm wide. The specimen had been passed off the field. We then injected local anesthetic into the wound. The wound was irrigated and suctioned out until clear. We closed the dermis with interrupted 3-0 subcuticular Monocryl sutures. The skin edges were reapproximated with a running 5-0 fast absorbing plain gut suture. No antibiotic ointment nor dressing was applied. After this, Marie was rotated into the supine position on his bed, weaned from his anesthesia, extubated and taken into recovery room in stable condition. Brian Fleming MD ALB/MODL /[id number] cc: MD Brian Suazo MD Copies: STEFFEN BENSON DMD, ANDREW L MD ~ Electronically Signed By: BRIAN FLEMING MD 09/16/20 1217 PATIENT NAME: MARIE CROSS OPERATIVE REPORT DATE OF : 68 REPORT #: [id number] PHYSICIAN: BRIAN FLEMING MD PCP: STEFFEN BENSON MD REPORT IS CONFIDENTIAL AND NOT TO BE RELEASED WITHOUT AUTHORIZATION
--- NOTE | 2020-09-16 12:20 | NUR ---
1100: PATIENT BACK IN DAY SURGERY ROOM FROM PACU. TOLERATING APPLE JUICE AND PUDDING. VS CHECKED. ICE PACK TO POSTERIOR SCALP. POSTERIOR SCALP INCISION OOZING RED DRAINAGE. IV SITE WNL. SCDs ON. CALL LIGHT WITHIN REACH. MEDICATED FOR PAIN WITH 1 TABLET OF HYDROCODONE. 1155: PATIENT TOLERATED SOUP AND SANDWICH LUNCH. VS CHECKED. DISCHARGE INSTRUCTIONS GIVEN TO PATIENT. PATIENT ASSISTED OOB AND TO WALK AROUND ROOM. GAIT STEADY. PATIENT GETTING DRESSED WITH HELP FROM MOTHER. 1210: PATIENT WALKED INDEPENDENTLY TO AND FROM BATHROOM. VOID WITHOUT DIFFICULTY. IV DC'D WNL. TIP INTACT. DRESSING APPLIED. 1212: PATIENT DISCHARGED HOME VIA WHEELCHAIR WITH MOTHER.
== END 2020-09-16 12:12 | disposition home or self-care (01) ==
LOC: DS 08:00
PROVIDERS: ATTEND Colon & Rectal Surgery
PROC: 0JB00ZZ Excision of Scalp Subcutaneous Tissue and Fascia, Open Approach (ICD-10-PCS; principal; 2020-09-16 09:30)
DX: D17.0 Benign lipomatous neoplasm of skin and subcutaneous tissue of head, face and neck (principal); I10 Essential (primary) hypertension; K21.9 Gastro-esophageal reflux disease without esophagitis; F17.210 Nicotine dependence, cigarettes, uncomplicated; F17.220 Nicotine dependence, chewing tobacco, uncomplicated; Z88.0 Allergy status to penicillin; Z88.8 Allergy status to other drugs, medicaments and biological substances
CPT/HCPCS: 00300; 88304; J0690; J1100; J1644; J1885; J2001; J2405; J2704; J3010; J7121

== ENCOUNTER 2021-05-12 10:14 | Emergency (ER) | payer MEDICARE, OTHER ==
[~2021-05-12] VITALS: Ht 177.8 cm; Wt 100.7 kg
--- OUTSIDE RECORDS SUMMARY | 2021-05-12 10:18 | XMS ---
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 CRITERIA MET - [facility] - 2 Visits in 30 Days CARE PROVIDERS DEANDRE MCCRARY [facility] 02/03/2018-Current PHONE: [phone] [facility]: [facility] 07/21/2018-Current PHONE: [phone] STEFFEN BENSON [facility] 12/14/2019-Current PHONE: [phone] [facility] Internal Medicine 09/24/2018-[facility] MELVIN PHONE: [phone] Care Guidelines exist for the following facilities: [facility] [place] ( 08/15/2020 ) Care History Medical/Surgical 12/21/2019 [facility] - [facility] IS UNABLE TO CONTACT PATIENT- PATIENT DOES NOT HAVE AN ADDRESS AND OR PHONE NUMBER LISTED. - PLEASE PROVIDE CECILIA CONTACT NUMBER TO PATIENT- [phone]. 12/14/2019 [facility] Care Recommendation: - PLEASE REVIEW PDMP ON THE BERNICE - USE EXTREME CAUTION IN GIVING NARCOTICS. - Avoid Discharge Narcotic prescriptions if at all possible. Physician discretion. E.D. VISIT COUNT (12 MO.) 2 [facility] TOTAL 2 NOTE: Visits indicate total known visits. ED/UCC VISIT TRACKING (12 MO.) 05/12/2021 10:15 [facility] TYPE: Emergency COMPLAINT: - TOOTH PAIN 05/01/2021 13:09 [facility] TYPE: Emergency COMPLAINT: - R MIDDLE FINGER PAIN INPATIENT VISIT TRACKING (12 MO.) No inpatient visits to display in this time frame [id number]
[2021-05-12] MEDS ORDERED: IBU600 MG PO ×2 (11:15→11:16)
[2021-05-12] MEDS ORDERED: PENICILLIN V P500 MG PO (11:15)
== END 2021-05-12 11:32 | disposition home or self-care (01) ==
LOC: ED 10:14
DX: K02.9 Dental caries, unspecified (principal); I10 Essential (primary) hypertension; F17.200 Nicotine dependence, unspecified, uncomplicated; Z88.8 Allergy status to other drugs, medicaments and biological substances; Z88.0 Allergy status to penicillin; Z88.1 Allergy status to other antibiotic agents; Z79.899 Other long term (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 therapy
CPT/HCPCS: 99282; A9270

== ENCOUNTER 2021-06-07 23:58 | Emergency (ER) | payer MEDICARE, OTHER ==
[~2021-06-07] VITALS: Ht 177.8 cm; Wt 100.7 kg
[~2021-06-07 23:58] MED LIST changes: +IBU600 MG PO
--- OUTSIDE RECORDS SUMMARY | 2021-06-08 | XMS ---
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 CRITERIA MET - [facility] - 2 Visits in 30 Days CARE PROVIDERS DEANDRE MCCRARY [facility] 02/03/2018-Current PHONE: Unknown ISMAEL SOLARES Clinic/Center: Critical access hospital PHONE: [phone] HEALTH, JUAN Clinic/Center: Health Service 07/21/2018-Current PHONE: [phone] [facility] 12/14/2019-Current PHONE: [phone] [facility] Internal Medicine 09/24/2018-[facility] MELVIN PHONE: [phone] Care Guidelines exist for the following facilities: [facility] ( 08/15/2020 ) Care History Medical/Surgical 12/14/2019 [facility] Care Recommendation: - PLEASE REVIEW PDMP ON THE BERNICE - USE EXTREME CAUTION IN GIVING NARCOTICS. - Avoid Discharge Narcotic prescriptions if at all possible. Physician discretion. E.D. VISIT COUNT (12 MO.) [address] [place] [address] TOTAL 3 NOTE: Visits indicate total known visits. ED/UCC VISIT TRACKING (12 MO.) 06/07/2021 23:[address] [facility] [place] TYPE: Emergency COMPLAINT: - RIGHT SIDE PAIN, VOMITING 05/12/2021 10:[address] 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
[2021-06-08] MEDS ORDERED: FLOMAX0.4 MG PO (01:31)
[2021-06-08] MEDS ORDERED: HYDROCODON-ACE1 EA10 PO (01:31)
[2021-06-08] MEDS ORDERED: ZOFRAN4 MG PO (01:31)
== END 2021-06-08 01:45 | disposition home or self-care (01) ==
LOC: ED 23:58
DX: N13.2 Hydronephrosis with renal and ureteral calculous obstruction (principal); R74.9 Abnormal serum enzyme level, unspecified; F15.10 Other stimulant abuse, uncomplicated; I10 Essential (primary) hypertension; F17.200 Nicotine dependence, unspecified, uncomplicated; Z88.8 Allergy status to other drugs, medicaments and biological substances; Z88.0 Allergy status to penicillin; Z88.1 Allergy status to other antibiotic agents; Z79.899 Other long term (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 therapy
CPT/HCPCS: 74176; 80053; 81001; 83690; 85025; 96374; 99284-25; A9270; J1885

== ENCOUNTER 2022-03-23 02:05 | Emergency (ER) | payer MEDICARE, OTHER ==
[~2022-03-23] VITALS: Ht 177.8 cm; Wt 101.2 kg
[~2022-03-23 02:05] MED LIST changes: +FLOMAX0.4 MG PO; +HYDROCODON-ACE1 EA10 PO; +ZOFRAN4 MG PO
--- OUTSIDE RECORDS SUMMARY | 2022-03-23 02:08 | XMS ---
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 1 event(s) in the past 18 months Most recent security events: Elopement at [facility] 05/01/2021 13:09 - Other Details: PATIENT LWBS CRITERIA MET - [facility] - Has Care Guidelines CARE PROVIDERS DEANDRE MCCRARY [facility] 02/03/2018-Current PHONE: Unknown ISMAEL SOLARES [facility]/Center: [facility] PHONE: [phone] [facility]/Center: Health Service 07/21/2018-Current PHONE: [phone] STEFFEN BENSON [facility] 12/14/2019-Current PHONE: [phone] [facility] Internal [facility]: [phone] Care Guidelines exist for the following facilities: [facility] ( 08/15/2020 ) Care History Medical/Surgical 06/08/2021 [facility] PATIENT DOES NOT HAVE A CONTACT NUMBER LISTED-UNABLE TO CONTACT PATIENT. 12/14/2019 [facility] Care Recommendation: - PLEASE REVIEW PDMP ON THE BERNICE - USE EXTREME CAUTION IN GIVING NARCOTICS. - Avoid Discharge Narcotic prescriptions if at all possible. Physician discretion. E.D. VISIT COUNT (12 MO.) 4 [facility]. TOTAL 4 NOTE: Visits indicate total known visits. 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 - Constipation, unspecified 05/12/2021 10:15 [facility] TYPE: Emergency COMPLAINT: - TOOTH PAIN DIAGNOSES: - Allergy status to other drugs, medicaments and biological substances - Nicotine dependence, unspecified, uncomplicated - Essential (primary) hypertension - Other [facility] (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 therapy - Other specified disorders of teeth and supporting structures - Allergy status to other antibiotic agents - Dental caries, unspecified - Allergy status to penicillin 05/01/2021 13:09 [facility] TYPE: Emergency COMPLAINT: - R MIDDLE FINGER PAIN INPATIENT VISIT TRACKING (12 MO.) No inpatient visits to display in this time frame [id number]
[2022-03-23] MEDS ORDERED: LISINOPRIL20 MG PO (06:01)
--- NOTE | 2022-03-24 20:54 | EKG ---
[facility] [address] [place] [address] Signed Sinus bradycardia Otherwise normal ECG When compared with ECG of 12-SEP-2020 09:37, Vent. rate has decreased BY 28 BPM Confirmed by Jhoan More MD () on 03/24/2022 8:54:22 PM Electronically Signed By: JHOAN MORE MD 03/24/222053 PATIENT NAME: CECILIO CROSS LEO Electrocardiogram DATE OF : 68 PHYSICIAN: JHOAN MORE MD REPORT #: [id number] REPORT IS CONFIDENTIAL AND NOT TO BE RELEASED WITHOUT AUTHORIZATION
== END 2022-03-23 07:04 | disposition home or self-care (01) ==
LOC: ED 02:05
DX: I10 Essential (primary) hypertension (principal); F15.10 Other stimulant abuse, uncomplicated; F17.200 Nicotine dependence, unspecified, uncomplicated; Z88.0 Allergy status to penicillin; Z88.8 Allergy status to other drugs, medicaments and biological substances; Z88.1 Allergy status to other antibiotic agents; Z20.822 Contact with and (suspected) exposure to COVID-19
CPT/HCPCS: 36415; 71045; 80053; 81001; 83690; 84484; 85025; 87502; 93005; 93010; 96361; 96374; 96375; 99284-25; C9803; G0480; J1885; J2405; J7121; U0003

== ENCOUNTER 2023-08-22 07:37 | Emergency (ER) | payer MEDICARE ==
[~2023-08-22] VITALS: Ht 177.8 cm; Wt 83.4 kg
[~2023-08-22 07:37] MED LIST changes: +LISINOPRIL20 MG PO
[2023-08-22] MEDS ORDERED: BACTRIM DS TAB1 EACH PO (07:55)
[2023-08-22] MEDS ORDERED: HIBICLENS118 ML TOP (07:55)
[2023-08-22] MEDS ORDERED: KETOROLAC TROMETHAMINE 60 MG/2 ML VIAL IM ONE (08:00)
[2023-08-22 08:15] VITALS: BP 181/98
== END 2023-08-22 08:15 | disposition home or self-care (01) ==
LOC: ED 07:37
DX: K13.0 Diseases of lips (principal); L98.9 Disorder of the skin and subcutaneous tissue, unspecified; I10 Essential (primary) hypertension; F17.200 Nicotine dependence, unspecified, uncomplicated; Z88.0 Allergy status to penicillin; Z88.1 Allergy status to other antibiotic agents; Z88.8 Allergy status to other drugs, medicaments and biological substances
CPT/HCPCS: 96372; 99283; J1885

== ENCOUNTER 2024-05-30 04:48 | Emergency (ER) | payer MEDICARE ==
[~2024-05-30] VITALS: Ht 177.8 cm; Wt 89.0 kg
[~2024-05-30 04:48] MED LIST changes: +BACTRIM DS TAB1 EACH PO; +HIBICLENS118 ML TOP; +ONDANSETRON ODT8 MG PO
[2024-05-30] MEDS ORDERED: diphenhydrAMINE HCL 50 MG/ML VIAL IV ONE (05:15)
[2024-05-30] MEDS ORDERED: KETOROLAC TROMETHAMINE 30 MG/ML VIAL IV ONE (05:15)
[2024-05-30] MEDS ORDERED: PROCHLORPERAZINE EDISYLATE 10 MG/2 ML VIAL IV ONE (05:15)
[2024-05-30 05:25] VITALS: BP 154/90
[2024-05-30 05:39] LABS: BILIRUBIN, URINE NEGATIVE (negative); BLOOD/HGB, URINE NEGATIVE (Negative); KETONE, URINE NEGATIVE (Negative); LEUK ESTERASE, URINE NEGATIVE (negative); NITRITE, URINE NEGATIVE (negative)
[2024-05-30 05:50] LABS: AMPHETAMINES, URINE POSITIVE (NEGATIVE); BARBITURATES, URINE NEGATIVE (NEGATIVE); BENZODIAZEPINE, URINE NEGATIVE (NEGATIVE); BUPRENORPHINE, URINE NEGATIVE (NEGATIVE); CANNABINOID, URINE NEGATIVE (NEGATIVE); COCAINE, URINE NEGATIVE (NEGATIVE); ECSTASY, URINE NEGATIVE (NEGATIVE); FENTANYL, URINE NEGATIVE (NEGATIVE); METHADONE, URINE NEGATIVE (NEGATIVE); OPIATES, URINE NEGATIVE (NEGATIVE); OXYCODONE, URINE NEGATIVE (NEGATIVE); PHENCYCLIDINE, URINE NEGATIVE (NEGATIVE)
== END 2024-05-30 05:25 | disposition home or self-care (01) ==
LOC: ED 04:48
PROVIDERS: Internal Medicine
DX: G44.209 Tension-type headache, unspecified, not intractable (principal); G43.909 Migraine, unspecified, not intractable, without status migrainosus; I10 Essential (primary) hypertension; F17.200 Nicotine dependence, unspecified, uncomplicated; Z88.0 Allergy status to penicillin; Z88.1 Allergy status to other antibiotic agents; Z88.8 Allergy status to other drugs, medicaments and biological substances
CPT/HCPCS: 80307; 81003; 99283

== ENCOUNTER 2024-08-27 19:32 | Emergency (ER) | payer MEDICARE ==
[~2024-08-27] VITALS: Ht 177.8 cm; Wt 80.7 kg
[2024-08-27 20:09] LABS: BASOPHILS 0.4 % (0-2); EOSINOPHILS 0.2 % (0-6); HEMATOCRIT 44.2 % (35.0-50.0); HEMOGLOBIN 14.8 g/dL (12.0-18.0); LYMPHOCYTES 15.1 % (24-44); MCH 29.1 (27-36); MCHC 33.4 g/dl (30-36); MCV 87.2 fl (81-99); MONOCYTES 4.8 % (0-12); NEUTROPHILS 79.5 % (39-80); PLATELET COUNT 277 K/uL (140-440); RBC 5.07 M/ul (4.3-5.7)
[2024-08-27] MEDS ORDERED: LACTATED RINGER'S 1,000 ML IV ONE (20:15)
[2024-08-27 20:17] LABS: ALBUMIN 4.2 g/dL (3.4-5.0); ALBUMIN/GLOBULIN RATIO 1.45 (1.1-2.4); ANION GAP 11.9 (7-21); BILIRUBIN, TOTAL 1.2 mg/dL (0.2-1.0); BUN/CREATININE RATIO 25.27 (6.0-28.6); CALCIUM 9.3 mg/dL (8.5-10.1); CREATININE, SERUM 0.91 mg/dL (0.70-1.30); MAGNESIUM 2.1 mg/dL (1.8-2.4); POTASSIUM 3.9 mmol/L (3.5-5.1); PROTEIN, TOTAL 7.1 g/dL (6.4-8.2)
[2024-08-27 21:32] VITALS: BP 125/101
== END 2024-08-27 21:34 | disposition home or self-care (01) ==
LOC: ED 19:32
PROVIDERS: Family Medicine
DX: B34.9 Viral infection, unspecified (principal); I10 Essential (primary) hypertension; F17.200 Nicotine dependence, unspecified, uncomplicated; Z88.0 Allergy status to penicillin; Z88.1 Allergy status to other antibiotic agents; Z88.8 Allergy status to other drugs, medicaments and biological substances
CPT/HCPCS: 36415; 80053; 83735; 85025; 99285; J7121

== ENCOUNTER 2024-09-29 12:19 | Emergency (ER) | payer OTHER, MEDICARE ==
[~2024-09-29] VITALS: Ht 177.8 cm; Wt 82.1 kg
[2024-09-29] MEDS ORDERED: MORPHINE SULFATE 4 MG/ML VIAL IV ONE ×3 (12:30→14:30)
[2024-09-29] MEDS ORDERED: LACTATED RINGER'S 1,000 ML IV ONE (12:30)
[2024-09-29 12:35] LABS: EOSINOPHILS 1.1 % (0-6); HEMATOCRIT 40.4 % (35.0-50.0); HEMOGLOBIN 13.9 g/dL (12.0-18.0); LYMPHOCYTES 46.2 % (24-44); MCH 29.4 (27-36); MCHC 34.3 g/dl (30-36); MCV 85.6 fl (81-99); MONOCYTES 10.4 % (0-12); NEUTROPHILS 41.3 % (39-80); PLATELET COUNT 290 K/uL (140-440); RBC 4.72 M/ul (4.3-5.7); RDW 14.6 (10.5-15.0)
[2024-09-29] MEDS ORDERED: ondansetron HCL 4 MG/2 ML VIAL IV ONE (12:45)
[2024-09-29 12:49] LABS: ALBUMIN 3.9 g/dL (3.4-5.0); ALBUMIN/GLOBULIN RATIO 1.44 (1.1-2.4); ALCOHOL, MEDICAL <3 ng/dL (<3); ALKALINE PHOSPHATASE 87 U/L (46-116); ALT (SGPT) 30 U/L (14-59); ANION GAP 11.7 (7-21); AST (SGOT) 26 U/L (15-37); BILIRUBIN, TOTAL 1.1 mg/dL (0.2-1.0); BUN/CREATININE RATIO 22.64 (6.0-28.6); CARBON DIOXIDE 28 mmol/L (21-32); CHLORIDE 101 mmol/L (98-107); CREATININE, SERUM 1.06 mg/dL (0.70-1.30); GLOMERULAR FILTRATION RATE,EST 83 mL/min (>60); POTASSIUM 3.7 mmol/L (3.5-5.1); PROTEIN, TOTAL 6.6 g/dL (6.4-8.2); UREA NITROGEN 24 mg/dL (7-18)
[2024-09-29 13:06] LABS: ABO O; ANTIBODY SCREEN NEGATIVE; RH POSITIVE
[2024-09-29] MEDS ORDERED: DIPHTH,PERTUSS(ACELL),TET VAC 0.5 ML SYRINGE IM ONE (13:45)
[2024-09-29] MEDS ORDERED: METOPROLOL SUCC25 MG PO (13:48)
[2024-09-29] MEDS ORDERED: VENTOLIN HFA18 GM INH (13:48)
[2024-09-29 14:29] LABS: BILIRUBIN, URINE NEGATIVE (negative); BLOOD/HGB, URINE NEGATIVE (Negative); KETONE, URINE NEGATIVE (Negative); LEUK ESTERASE, URINE NEGATIVE (negative); NITRITE, URINE NEGATIVE (negative); PH, URINE 6.5 (5-7)
[2024-09-29 14:30] LABS: METHADONE, URINE NEGATIVE (NEGATIVE); PHENCYCLIDINE, URINE NEGATIVE (NEGATIVE)
[2024-09-29 14:31] LABS: CANNABINOID, URINE POSITIVE (NEGATIVE)
[2024-09-29 14:51] LABS: AMPHETAMINES, URINE POSITIVE (NEGATIVE); BARBITURATES, URINE NEGATIVE (NEGATIVE); BENZODIAZEPINE, URINE NEGATIVE (NEGATIVE); BUPRENORPHINE, URINE NEGATIVE (NEGATIVE); COCAINE, URINE NEGATIVE (NEGATIVE); ECSTASY, URINE NEGATIVE (NEGATIVE); FENTANYL, URINE NEGATIVE (NEGATIVE); OPIATES, URINE POSITIVE (NEGATIVE); OXYCODONE, URINE NEGATIVE (NEGATIVE)
--- NOTE | 2024-09-30 12:42 | EKG ---
[facility] [address] [facility] [place] [address] Signed Normal sinus rhythm Minimal voltage criteria for LVH, may be normal variant ( Sokolow-De Luna ) Borderline ECG When compared with ECG of 23-MAR-2022 03:11, No significant change was found Confirmed by Hiro Artis DO ([id number]) on 09/30/2024 12:42:42 PM Electronically Signed By: HIRO ARTIS DO 09/30/24 1242 PATIENT NAME: CECILIO CROSS LEO Electrocardiogram DATE OF : 68 PHYSICIAN: HIRO ARTIS DO REPORT #: [id number] REPORT IS CONFIDENTIAL AND NOT TO BE RELEASED WITHOUT AUTHORIZATION
== END 2024-09-29 16:02 | disposition short-term general hospital (02) ==
LOC: ED 12:19
PROVIDERS: Emergency Medicine
DX: S06.5XAA Traumatic subdural hemorrhage with loss of consciousness status unknown, initial encounter (principal); S02.19XA Other fracture of base of skull, initial encounter for closed fracture; S02.11GA Other fracture of occiput, right side, initial encounter for closed fracture; S22.41XA Multiple fractures of ribs, right side, initial encounter for closed fracture; I10 Essential (primary) hypertension; F17.200 Nicotine dependence, unspecified, uncomplicated; Z88.8 Allergy status to other drugs, medicaments and biological substances; Z88.0 Allergy status to penicillin; Z88.1 Allergy status to other antibiotic agents; Z79.899 Other long term (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 therapy; V09.9XXA Pedestrian injured in unspecified transport accident, initial encounter
CPT/HCPCS: 36415; 70450; 70486; 71045; 71260; 72125; 73552; 73590; 74177; 80053; 80307; 81003; 85025; 86850; 86900; 86901; 90471; 90715; 93005; 93010; 99285-25; G0480; J2270; J2405; J7121; Q9967

== ENCOUNTER 2024-12-25 03:12 | Emergency (ER) | payer MEDICARE ==
[~2024-12-25] VITALS: Ht 177.8 cm; Wt 82.1 kg
[~2024-12-25 03:12] MED LIST changes: +METOPROLOL SUCC25 MG PO; +VENTOLIN HFA18 GM INH
[2024-12-25] MEDS ORDERED: AMOX TR-K CLV1 EAC1 PO (03:45)
[2024-12-25] MEDS ORDERED: AMOXICILLIN/CLAVULANATE K 875 MG HOME.PACK PO ONE (03:45)
[2024-12-25] MEDS ORDERED: IBUPROFEN 800 MG TAB PO ONE (03:45)
[2024-12-25] MEDS ORDERED: IBU800 MG PO (03:46)
[2024-12-25 03:57] VITALS: BP 178/90
[2024-12-26] MEDS ORDERED: METHOCARBAMOL500 MG PO (12:13)
[2024-12-26] MEDS ORDERED: METOPROLOL SUCC25 MG PO (12:14)
== END 2024-12-25 03:57 | disposition home or self-care (01) ==
LOC: ED 03:12
DX: L03.116 Cellulitis of left lower limb (principal); I10 Essential (primary) hypertension; F17.200 Nicotine dependence, unspecified, uncomplicated; Z88.0 Allergy status to penicillin; Z88.1 Allergy status to other antibiotic agents; Z88.8 Allergy status to other drugs, medicaments and biological substances
CPT/HCPCS: 99283; A9270

== ENCOUNTER 2024-12-26 22:09 | Emergency (ER) | payer MEDICARE ==
[~2024-12-26] VITALS: Ht 177.8 cm; Wt 81.0 kg
[~2024-12-26 22:09] MED LIST changes: +AMOX TR-K CLV1 EAC1 PO; +IBU800 MG PO; +METHOCARBAMOL500 MG PO
[2024-12-27 02:25] VITALS: BP 162/112
== END 2024-12-27 02:26 | disposition left against medical advice (07) ==
LOC: ED 22:09
DX: L03.116 Cellulitis of left lower limb (principal); I10 Essential (primary) hypertension; F17.200 Nicotine dependence, unspecified, uncomplicated; Z88.0 Allergy status to penicillin; Z88.8 Allergy status to other drugs, medicaments and biological substances; Z88.1 Allergy status to other antibiotic agents; Z79.2 Long term (current) use of antibiotics; Z53.29 Procedure and treatment not carried out because of patient's decision for other reasons
CPT/HCPCS: 73610; 80053; 83605; 84550; 85025; 86140; 87040; 99283